=== PATIENT | male | born 1950 | race Caucasian/White ===

== ENCOUNTER → 2018-12-04 | Outpatient (CLI) | payer MEDICARE, SELFPAY ==
--- NOTE | 2018-12-04 09:01 | RAD_ITS ---
STUDY: X-RAY - LEFT KNEE REASON FOR EXAM: Male, 68 years old. Chronic knee pain. TECHNIQUE: 4 view(s) of the knee. COMPARISON: None. FINDINGS: There is generalized osteopenia. Normal visualized distal femur. Normal visualized proximal tibia and fibula. Normal proximal tibiofibular articulation. There is moderate arthrosis of the medial, lateral and patellofemoral compartments. There is a superior patellar spur. RAD/Knee 4 or More Views IMPRESSION: Osteopenia with tricompartmental arthrosis. Electronically Signed: Bennett Mendoza MD at 17:54 EDT , Service support ,
--- NOTE | 2018-12-04 09:01 | RAD_ITS ---
STUDY: X-RAY - RIGHT KNEE REASON FOR EXAM: Chronic pain. TECHNIQUE: 4 view(s) of the knee. COMPARISON: Radiograph report 08/05/2013. FINDINGS: Normal visualized distal femur. Normal visualized proximal tibia and fibula. Normal proximal tibiofibular articulation. There are small marginal osteophytes without joint space narrowing of the medial femorotibial compartment. Normal lateral femorotibial compartment. There are small marginal osteophytes with moderate joint space narrowing of the patellofemoral articulation. There is chondrocalcinosis. RAD/Knee 4 or More Views IMPRESSION: Patellofemoral arthrosis. Chondrocalcinosis. Electronically Signed: Chase Rodriguez MD at 11:47 EDT Tel , Service support ,
== END | disposition home or self-care (01) ==
LOC: HPRAD 09:01
PROVIDERS: Family Provider Family Medicine; PCP Family Medicine; Referring Provider Orthopaedic Surgery; Visit Provider Orthopaedic Surgery
DX: M25.562 Pain in left knee (principal); M25.561 Pain in right knee
CPT/HCPCS: 73564

== ENCOUNTER → 2021-04-04 12:50 | Outpatient (CLI) | payer MEDICARE, SELFPAY ==
--- NOTE | 2021-04-04 12:53 | VDLE_ITS ---
Reason For Study: Swelling RIGHT LEFT CFV is compressible, spontaneous, phasic, CFV is compressible, spontaneous, phasic, competent and demonstrates normal competent, and demonstrates normal augmentation. augmentation. FV is compressible, spontaneous, phasic, FV is compressible, spontaneous, phasic, competent and demonstrates normal competent and demonstrates normal augmentation. augmentation. POP V is compressible, spontaneous, phasic, POP V is compressible, spontaneous, phasic, competent and demonstrates normal competent and demonstrates normal augmentation. augmentation. T/P Trunk is compressible. T/P Trunk is compressible. PTV is compressible. PTV is compressible. RT PerV is compressible. LT PerV is compressible. SFJ is competent and measures 0.95 x 0.94 cm. SFJ is INCOMPETENT and measures 0.83 x 1.00 GSV proximal thigh measures 0.40 x 0.37 cm. cm. GSV above knee is INCOMPETENT for greater GSV proximal thigh measures 0.36 x 0.38 cm. than 0.5 seconds. GSV above knee is INCOMPETENT for greater GSV at knee measures 0.45 x 0.44 cm. than 0.5 seconds. GSV below knee is competent. GSV at knee measures 0.33 x 0.35 cm. SSV at junction is competent and measures GSV below knee previous EVLA. 0.24 x 0.28 cm. SSV previous EVLA. Procedure ASV 2 proximal calf is IMCOPETENT for greater This is a venous duplex using B-mode, color than 0.5 seconds and measures 0.24 x 0.28 cm. flow and spectral Doppler. ASV proximal calf is INCOMPETENT for greater Exam performed in department. than 0.5 seconds and measures 0.32 x 0.36 cm. ASV mid thigh is INCOMPETENT for greater than 0.5 seconds and measures 0.36 x 0.34 cm. VL/Venous Duplex US - Gregory Extrem Interpretation Summary Bilateral no DVT. Right GSV measuring 9.4 and 4 mm with reflux. Left GSV with 8 .3 and 3.8 mm with reflux. Left ASV 3.6 and 3.6 mm with reflux. Previous left leg ablation. Ordering Physician: Mike Correa Referring Physician: Marilyn Nickerson Performed By: Smiley Peguero RVT
== END ==
PROVIDERS: PCP Nurse Practitioner Family; Referring Provider Surgery Vascular Surgery; Visit Provider Surgery Vascular Surgery
DX: I83.893 Varicose veins of bilateral lower extremities with other complications (principal); M79.89 Other specified soft tissue disorders; M79.606 Pain in leg, unspecified; L03.90 Cellulitis, unspecified; K21.9 Gastro-esophageal reflux disease without esophagitis; I51.9 Heart disease, unspecified
CPT/HCPCS: 93970

== ENCOUNTER 2023-05-20 05:17 | Day surgery (SDC) | payer MEDICARE, SELFPAY ==
--- NOTE | 2023-05-20 | IMM_PTH ---
PATIENT: OBED ANDERSON LOC: EN U#:[id number] AGE/SX: 73/M ROOM: RE05/20/[address]: Dr. Junaid Jorge DO : 1950 BED: DIS: 05/20/2023 SPEC #: [id number] RECD: 05/21/23 13:12 STATUS: BILL REQ #: [id number] GINNA: 05/20/23 00:[address]: Junaid Jorge DEPT: IMMUNOHISTOCHEMISTRY RECD BY: Elvie Quigley ENTERED: 05/21/23 13:13 SP TYPE: IMMUNO OTHR DR: Dr. Jabari Adan DO Tissues: B - Esophagus, NOS Procedures: P53 (initial) KI-67 (add) MOC-31 (add) PHYSICIAN & INSTITUTION [place] [id number] SPECIMEN INFORMATION: Tissue Source: B - Distal esophagus Clinical Info: GERD, Albarran's esophagus, fatty liver Specimen Number: [id number] CPT code: 88101, 08735 x2 METHODOLOGY: Deparaffinized sections of prefer/formalin-fixed tissue or PAP/DQ stained slides are incubated with monoclonal/polyclonal antibodies/oligonucleotide probes. Localization is made via biotin free immunoperoxidase method. Appropriate controls are performed and reacted as expected. Results on target cell population are indicated in the following table: RESULTS: ANTIBODY / CLONE RESULT Block B P53 (DO-7) negative, wild type pattern Ki-67 (30-9) positive, low MOC-31 (4561) positive These tests were developed and their performance characteristics determined by [facility]. They may not have been cleared or approved by the U.S. Food and Drug Administration. The FDA has determined that such clearance or approval is not necessary. The above immunohistochemical/dualISH markers are ordered and reviewed by the Pathologist. INTERPRETATION: B. Distal esophagus, biopsy: No evidence of dysplasia. AM:monster 05/22/2023
--- NOTE | 2023-05-20 | COLBX_PTH ---
PATIENT: OBED ANDERSON LOC: EN U#:[id number] AGE/SX: 73/M ROOM: RE05/20/[address]: Dr. Junaid Jorge DO : 1950 BED: DIS: 05/20/2023 SPEC #: [id number] RECD: 05/20/23 10:39 STATUS: BILL LORNE #: [id number] GINNA: 05/20/23 00:[address]: Junaid Jorge DEPT: SURGICAL PATHOLOGY RECD BY: Donaldo Bennett ENTERED: 05/20/23 10:40 SP TYPE: COLON BX OTHR DR: Dr. Jabari Adan DO Tissues: A - Duodenum, NOS B - Esophageal mucous membrane C - Ileum, NOS Procedures: Special Stain Group II Surgery Specimen Level IV Alcian Blue/PAS (control) HEADER OPERATION: Colonoscopy, EGD (MAC), biopsy PRE-OP DIAGNOSIS: GERD, Albarran's esophagus, fatty liver TISSUE SUBMITTED: A - Duodenal stricture biopsy, B - Distal esophagus biopsy, C - Ileocecal valve polyp MICROSCOPIC DIAGNOSIS A. Duodenal stricture, biopsy: No pathologic change. B. Distal esophagus, biopsy: Gastroesophageal junctional mucosa with mild chronic inflammation. Goblet cell metaplasia consistent with Albarran's esophagus. No evidence of dysplasia. See comment. C. Ileocecal valve, biopsy: No pathologic change. AM:monster 05/21/2023 COMMENT B. Alcian blue/PAS stain with matched control supports the above diagnosis. Immunohistochemistry ([id number]) for P53 and Ki-67 will be performed and results will be reported separately. MICROSCOPIC DESCRIPTION Slides are reviewed. GROSS DESCRIPTION A - Received in fixative is one container labeled with the patient's name and designated duodenal stricture biopsy. The specimen consists of two irregular fragments of light smith soft tissue that in aggregate measure 0.8 x 0.4 x 0.1 cm. The specimen is totally submitted in one cassette. B - Received in fixative is one container labeled with the patient's name and designated distal esophagus biopsy. The specimen consists of two irregular fragments of light smith soft tissue that in aggregate measure 0.6 x 0.3 x 0.1 cm. The specimen is totally submitted in one cassette. C - Received in fixative is one container labeled with the patient's name and designated ileocecal valve polyp. The specimen consists of multiple fragments of smith-pink polyp measuring in aggregate 0.5 x 0.3 x 0.1 cm. The specimen is totally submitted in one cassette. / SJ:rg 05/20/2023 TC:3 CPT: 82107 x3, 77468
[2023-05-20 05:57] VITALS: BP 162/74; PULSE 62; RESP 18; TEMP 36.6; O2SAT 97; BMI 25.6
--- NOTE | 2023-05-20 06:26 | PCM.HP.BLA ---
History and Physical Date of Admission: 05/20/23 72 M who presents to the office today to establish with Gastroenterology for heartburn, hx Albarran's, fatty liver. Diagnosed with Albarran's esophagus years ago. Takes omeprazole 40 mg BID. Famotidine 20 mg added in 10/2022 per primary care progress note but patient not aware of that. Always has a bad taste in mouth. Burning pain in mouth. Hx fundoplication [address] reported small hiatal hernia and possibly 2 small diverticula at distal esophagus. No nausea, vomiting, dysphagia, early satiety. No abd pain. Diarrhea typically at restaurants or at someone else's house. Otherwise normal bowels. No melena or hematochezia. Says overdue for screening colonoscopy. No hx polyps. 2021 Renal US reported fatty liver ROS Const Constitutional: No fatigue ENT ENT: No difficulty swallowing Gastro GI: Positive for abdominal pain, bloating, diarrhea and heartburn; No belching, change in bowel habits, change in stool character, coffee ground emesis, constipation, cramping, difficulty swallowing, feeling full early, excessive flatus, incontinent of stools, Vomiting blood/hematemesis, Blood in stool, loose stools, Black,tarry stools, nausea/dyspepsia, pain with swallowing, vomiting or other Musc Musculoskeletal: No joint pain Skin Skin: No yellowing of the eye or itchy eyes Psych Psychiatric: No anxiety and No depression Endo Endocrine: No fatigue Aller/Imm Allergy/Immunologic: No itchy eyes David/Lymp Hematologic/Lymphatic: No easy bleeding or easy bruising Exam Const General: cooperative, healthy appearing and comfortable Orientation: alert, awake and oriented x3 HENMT Head: normal to inspection Eyes Sclera: sclerae normal Resp Effort & Inspection: normal respiratory effort GI Inspection: normal to inspection Skin General: no jaundice Quality Reporting Tobacco Screening ([facility] 138) Smoking Status: Never smoker Assessment and Plan Assessment and Plan (1) Bad taste in mouth: Status: Chronic Plan: 72 yr old male with chronic bad taste in mouth, hiatal hernia, possible distal esophageal diverticula which may be trapping food, remote hx ?fundoplication. Will schedule him for EGD and screening colonoscopy. F/u in office 2 wks later. (2) GERD (gastroesophageal reflux disease): Status: Chronic Plan: see above (3) Albarran esophagus: Status: Chronic Plan: see above (4) Fatty liver: Status: Chronic Plan: Will get liver elastography, then decide re any necessary lab w/u Orders: Orders Abdomen Limited Today K76.0 - Fatty (change of) liver, not elsewhere classified Elastography Parenchyma/Organ Today K76.0 - Fatty (change of) liver, not elsewhere classified Medications: Discontinued famotidine Discontinued Reason: Pt no longer taking 20 mg PO DAILY I have examined the patient and the H&P has been reviewed. There are no clinical changes since date of exam.
[2023-05-20 07:20] VITALS: BP 126/66; BP 162/74; PULSE 65; RESP 16; TEMP 36.2; O2SAT 100
--- NOTE | 2023-05-20 07:25 | OP.EGD_ITS ---
Patient Name: David Jacobson Procedure Date: 05/20/2023 6:49 AM Date of : 1950 Age: 73 Procedure: Upper GI endoscopy Indications: Epigastric abdominal pain, Esophageal reflux, Follow-up of Albarran's esophagus Providers: Junaid Jorge DO Referring MD: Junaid Jorge DO Medicines: Monitored Anesthesia Care Patient Profile: This is a 73 year old male. Refer to note in patient chart for documentation of history and physical. Patient has symptoms of chronic nausea. Complications: No immediate complications. Procedure: Pre-Anesthesia Assessment: - Prior to the procedure, a History and Physical was performed, and patient medications and allergies were reviewed. The risks and benefits of the procedure and the sedation options and risks were discussed with the patient. All questions were answered and informed consent was obtained. Patient identification and proposed procedure were verified by the physician. Mental Status Examination: normal. Prophylactic Antibiotics: The patient does not require prophylactic antibiotics. Prior Anticoagulants: The patient has taken no anticoagulant or antiplatelet agents. ASA Grade Assessment: II - A patient with mild systemic disease. After reviewing the risks and benefits, the patient was deemed in satisfactory condition to undergo the procedure. The anesthesia plan was to use monitored anesthesia care (MAC). Immediately prior to administration of medications, the patient was re-assessed for adequacy to receive sedatives. The heart rate, respiratory rate, oxygen saturations, blood pressure, adequacy of pulmonary ventilation, and response to care were monitored throughout the procedure. The physical status of the patient was re-assessed after the procedure. After obtaining informed consent, the endoscope was passed under direct vision. Throughout the procedure, the patient's blood pressure, pulse, and oxygen saturations were monitored continuously. The colonoscope was introduced through the mouth, and advanced to the second part of duodenum. The upper GI endoscopy was accomplished without difficulty. The patient tolerated the procedure well. Scope In: 6:59:03 AM Scope Out: 7:04:14 AM Total Procedure Duration Time 0 hours 5 minutes 11 seconds Findings: There were esophageal mucosal changes secondary to established short-segment Albarran's disease present in the lower third of the esophagus. The maximum longitudinal extent of these mucosal changes was 1 cm in length. Mucosa was biopsied with a cold forceps for histology in a targeted manner at intervals of 1 cm in the lower third of the esophagus. One specimen bottle was sent to pathology. Verification of patient identification for the specimen was done. Estimated blood loss was minimal. Evidence of a partial fundoplication was found in the gastric fundus. The wrap appeared loose. This was traversed. The entire examined stomach was normal. An acquired benign-appearing, intrinsic moderate stenosis was found in the duodenal bulb and was traversed. Biopsies were taken with a cold forceps for histology. Verification of patient identification for the specimen was done. Estimated blood loss was minimal. Impression: - Esophageal mucosal changes secondary to established short-segment Albarran's disease. Biopsied. - A partial fundoplication was found. The wrap appears loose. - Normal stomach. - Acquired duodenal stenosis. Biopsied. Recommendation: - Discharge patient to home. - Resume previous diet. - Continue present medications. - Await pathology results. Procedure Code(s): --- Professional --- 77155, Esophagogastroduodenoscopy, flexible, transoral; with biopsy, single or multiple CPT copyright 2021 [employer]. All rights reserved. The codes documented in this report are preliminary and upon weight yardage checker review may be revised to meet current compliance requirements. Junaid Jorge DO 05/20/2023 7:24:13 AM This report has been signed electronically. Number of Addenda: 0 Note Initiated On: 05/20/2023 6:49 AM
--- NOTE | 2023-05-20 07:25 | OP.CCLET_ITS ---
05/20/2023 Jabari Adan Do Re : Upper GI endoscopy procedure for [facility] Antionette This procedure was performed on Saturday, May 20, 2023. My impressions and recommendations are as follows: Impressions : - Esophageal mucosal changes secondary to established short-segment Albarran's disease. Biopsied. - A partial fundoplication was found. The wrap appears loose. - Normal stomach. - Acquired duodenal stenosis. Biopsied. Recommendations : - Discharge patient to home. - Resume previous diet. - Continue present medications. - Await pathology results. My findings are described in the full procedure note, which is enclosed. If I can be of further assistance, please feel free to contact me at . Sincerely, Junaid Jorge, 05/20/2023 7:24:13 AM This report has been signed electronically.
[2023-05-20 07:26] VITALS: BP 123/73; BP 162/74; PULSE 67; RESP 16; O2SAT 99
--- NOTE | 2023-05-20 07:26 | OP.COLON_ITS ---
Patient Name: David Jacobson Procedure Date: 05/20/2023 7:05 AM Date of : 1950 Age: 73 Procedure: Colonoscopy Indications: Screening for colorectal malignant neoplasm Providers: Junaid Jorge DO Referring MD: Junaid Jorge DO Medicines: Monitored Anesthesia Care Patient Profile: This is a 73 year old male. Refer to note in patient chart for documentation of history and physical. Patient has symptoms of chronic nausea. Last Colonoscopy: 10 years ago. Complications: No immediate complications. Procedure: Pre-Anesthesia Assessment: - Prior to the procedure, a History and Physical was performed, and patient medications and allergies were reviewed. The risks and benefits of the procedure and the sedation options and risks were discussed with the patient. All questions were answered and informed consent was obtained. Patient identification and proposed procedure were verified by the physician. Mental Status Examination: normal. Prophylactic Antibiotics: The patient does not require prophylactic antibiotics. Prior Anticoagulants: The patient has taken no anticoagulant or antiplatelet agents. ASA Grade Assessment: II - A patient with mild systemic disease. After reviewing the risks and benefits, the patient was deemed in satisfactory condition to undergo the procedure. The anesthesia plan was to use monitored anesthesia care (MAC). Immediately prior to administration of medications, the patient was re-assessed for adequacy to receive sedatives. The heart rate, respiratory rate, oxygen saturations, blood pressure, adequacy of pulmonary ventilation, and response to care were monitored throughout the procedure. The physical status of the patient was re-assessed after the procedure. After I obtained informed consent, the scope was passed under direct vision. Throughout the procedure, the patient's blood pressure, pulse, and oxygen saturations were monitored continuously. The colonoscope was introduced through the anus and advanced to the cecum, identified by the appendiceal orifice, ileocecal valve and palpation. The colonoscopy was performed without difficulty. The patient tolerated the procedure well. The quality of the bowel preparation was good. The ileocecal valve, appendiceal orifice, and rectum were photographed. Scope In: 7:06:22 AM Scope Withdrawal Time 0 hours 7 minutes 5 seconds Scope Out: 7:15:11 AM Total Procedure Duration Time 0 hours 8 minutes 49 seconds Findings: The perianal and digital rectal examinations were normal. Scattered small-mouthed diverticula were found in the recto-sigmoid colon and sigmoid colon. A 5 mm polyp was found in the ileocecal valve. The polyp was sessile. The polyp was removed with a hot snare. Resection and retrieval were complete. Verification of patient identification for the specimen was done. Estimated blood loss was minimal. Impression: - Diverticulosis in the recto-sigmoid colon and in the sigmoid colon. - One 5 mm polyp at the ileocecal valve, removed with a hot snare. Resected and retrieved. Recommendation: - Repeat colonoscopy in 5 years for surveillance. - Continue present medications. Procedure Code(s): --- Professional --- 04553, Colonoscopy, flexible; with removal of tumor(s), polyp(s), or other lesion(s) by snare technique CPT copyright 2021 [employer]. All rights reserved. The codes documented in this report are preliminary and upon oil gas and pipe tester review may be revised to meet current compliance requirements. Junaid Jorge DO 05/20/2023 7:26:16 AM This report has been signed electronically. Number of Addenda: 0 Note Initiated On: 05/20/2023 7:05 AM
--- NOTE | 2023-05-20 07:26 | OP.CCLET_ITS ---
05/20/2023 Jabari Adan Do Re : Colonoscopy procedure for [facility] [place] This procedure was performed on Saturday, May 20, 2023. My impressions and recommendations are as follows: Impressions : - Diverticulosis in the recto-sigmoid colon and in the sigmoid colon. - One 5 mm polyp at the ileocecal valve, removed with a hot snare. Resected and retrieved. Recommendations : - Repeat colonoscopy in 5 years for surveillance. - Continue present medications. My findings are described in the full procedure note, which is enclosed. If I can be of further assistance, please feel free to contact me at . Sincerely, Junaid Jorge, 05/20/2023 7:26:16 AM This report has been signed electronically.
[2023-05-20 07:30] VITALS: BP 132/75; BP 162/74; PULSE 64; RESP 16; O2SAT 99
[2023-05-20 07:35] VITALS: BP 148/79; BP 162/74; RESP 16; TEMP 36.7; O2SAT 99
[2023-05-20 07:50] VITALS: BP 162/74
== END 2023-05-20 08:01 | disposition home or self-care (01) ==
LOC: EN 05:18 → AC 05:20
PROVIDERS: PCP Student in an Organized Health Care Education/Training Program; Referring Provider Student in an Organized Health Care Education/Training Program; Visit Provider Internal Medicine Gastroenterology
PROC: 0DJD8ZZ Inspection of Lower Intestinal Tract, Via Natural or Artificial Opening Endoscopic (ICD-10-PCS; CPT 45378; principal; 2023-05-20 06:25)
DX: Z12.11 Encounter for screening for malignant neoplasm of colon (principal); I48.91 Unspecified atrial fibrillation; K63.5 Polyp of colon; K57.30 Diverticulosis of large intestine without perforation or abscess without bleeding; K31.5 Obstruction of duodenum; K22.70 Barrett's esophagus without dysplasia; K76.0 Fatty (change of) liver, not elsewhere classified; K21.9 Gastro-esophageal reflux disease without esophagitis; I10 Essential (primary) hypertension; Z79.01 Long term (current) use of anticoagulants; Z79.899 Other long term (current) drug therapy; Z95.1 Presence of aortocoronary bypass graft
CPT/HCPCS: 43239; 45385; 81002; 88305; 88313; 88341; 88342; 93005; J7120

== ENCOUNTER → 2023-06-14 | Outpatient (CLI) | payer MEDICARE, SELFPAY ==
[2023-06-14 08:59] LABS: Erythrocyte Sedimentation Rate 14 mm/hr (0-20)
[2023-06-14 09:13] LABS: Amylase 56 U/L (25-115); CRP < 2.90 mg/L (0.0-3.0); LDH 140 U/L (87-241); Lipase 40 U/L (13-75)
[2023-06-17 13:07] LABS: Anti-Centromere B Ab <0.2 AI (0.0-0.9); Anti-Chromatin <0.2 AI (0.0-0.9); Anti-Jo <0.2 AI (0.0-0.9); Anti-Scleroderma-70 AB <0.2 AI (0.0-0.9); Anti-dsDNA Ab <1 IU/mL (0-9); RNP Ab <0.2 AI (0.0-0.9); SJOGREN'S Anti-SS-A test < 0.2 AI (0.0-0.9); SJOGREN'S Anti-SS-B test < 0.2 AI (0.0-0.9); Smith Ab <0.2 AI (0.0-0.9)
[2023-06-17 16:08] LABS: Albumin 4.2 g/dL (2.9-4.4); Alpha-1-Globulins 0.1 g/dL (0.0-0.4); Alpha-2-Globulins 0.9 g/dL (0.4-1.0); Cytoplasmic Ab (C-ANCA) <1:20 titer (Neg:<1:20); Endomysial Antibody IgA Negative (Negative); Gamma Globulin 0.6 g/dL (0.4-1.8); Gastrin, Serum 214 pg/mL (0-115); Immunoglobulin A 189 mg/dL (61-437); Immunoglobulin G 796 mg/dL (603-1613); Immunoglobulin M 60 mg/dL (15-143); Perinuclear Ab (P-ANCA) <1:20 titer (Neg:<1:20); t-Transglutaminase IgA <2 U/mL (0-3)
[2023-06-19 00:06] LABS: Pancreatic Elastase, Fecal 397 (>200)
[2023-06-21 15:07] LABS: Calprotectin, Stool 104 ug/g (0-120); Fats, Neutral Normal (.); Fats, Total Normal (.)
== END | disposition home or self-care (01) ==
PROVIDERS: PCP Student in an Organized Health Care Education/Training Program; Referring Provider Internal Medicine Gastroenterology; Visit Provider Internal Medicine Gastroenterology
DX: R43.8 Other disturbances of smell and taste (principal); Z12.11 Encounter for screening for malignant neoplasm of colon; R19.7 Diarrhea, unspecified; K58.9 Irritable bowel syndrome, unspecified
CPT/HCPCS: 36415; 82150; 82653; 82705; 82784; 82941; 83516; 83615; 83630; 83690; 83993; 84165; 85652; 86140; 86225; 86235; 86255; 86256; 86334; 87177; 87209; 87329; 87506

== ENCOUNTER → 2023-07-16 | Outpatient (CLI) | payer MEDICARE, SELFPAY ==
--- NOTE | 2023-07-16 10:15 | NM_ITS ---
CLINICAL: 73-year-old male with history of clinical gastroparesis. SEMI-SOLID PHASE 99m Tc SULFUR COLLOID GASTRIC EMPTYING STUD COMPARISON: None available FINDINGS: The patient was administered 1.1 mCi of 99m Tc sulfur colloid mixed with oatmeal and consumed per os. Image acquisitions in the anterior projection were obtained for 60 minutes. There is prompt visualization of the stomach. There is no gastroesophageal reflux identified. The T ? linear fit was calculated to be 34.34 minutes, (Normal: 12-56 minutes). NM/Gastric Emptying Study IMPRESSION: 1. NORMAL 99m Tc sulfur colloid semi-solid phase (oatmeal) gastric emptying imaging examination. A. There is normal and preserved semi-solid phase gastric emptying compared to normal controls. (Deondre et al, J Nucl Med Tech 38: 186, 2010). Electronically Signed: Joss Nichols DO at 23:38 EST ,
== END | disposition home or self-care (01) ==
LOC: NM 10:14
PROVIDERS: PCP Student in an Organized Health Care Education/Training Program; Referring Provider Internal Medicine Gastroenterology; Visit Provider Internal Medicine Gastroenterology
DX: K31.84 Gastroparesis (principal)
CPT/HCPCS: 78264; A9541

== ENCOUNTER → 2023-10-01 | Outpatient (CLI) | payer MEDICARE, SELFPAY ==
--- OUTSIDE RECORDS SUMMARY | 2023-09-09 12:30 | XMS RPT_ITS | CCD ---
Author Name Unknown Address [address] [facility] [address] [place] [address] Organization [facility] Care Team Providers Care Casting Operator Name Role Phone FELTON LEAD INJECTION MOLD TECHNICIAN-WINDOW DECORATOR, MARILYN Primary Care Physician ( [phone] Deepa NAZARIO, Lesli Unavailable Unavailable Felton LEAD INJECTION MOLD TECHNICIAN.WINDOW DECORATOR, Marilyn Primary Care Provider Felton LEAD INJECTION MOLD TECHNICIAN.WINDOW DECORATOR, Marilyn Primary Care Provider FELTON LEAD INJECTION MOLD TECHNICIAN-WINDOW DECORATOR, MARILYN Primary Care Unavaila WILFRIDO Cornell MD Attending Unavailable FELTON LEAD INJECTION MOLD TECHNICIAN-WINDOW DECORATOR, MARILYN Attending Unavaila ble FELTON LEAD INJECTION MOLD TECHNICIAN-WINDOW DECORATOR, MARILYN Primary Care Unavaila ble FELTON LEAD INJECTION MOLD TECHNICIAN-WINDOW DECORATOR, MARILYN Primary Care Unavaila ble FELTON LEAD INJECTION MOLD TECHNICIAN-WINDOW DECORATOR, MARILYN Attending Unavaila ble FELTON LEAD INJECTION MOLD TECHNICIAN-WINDOW DECORATOR, MARILYN Attending Unavaila ble FELTON LEAD INJECTION MOLD TECHNICIAN-WINDOW DECORATOR, MARILYN Primary Care Unavaila ble FELTON LEAD INJECTION MOLD TECHNICIAN-WINDOW DECORATOR, MARILYN Attending Unavaila ble FELTON LEAD INJECTION MOLD TECHNICIAN-WINDOW DECORATOR, MARILYN Primary Care Unavaila igne LEAHY MD, KARAN Le Attending Unavailable LAYO LYNN, KARAN Le Consulting Unavailable LAYO LYNN, KARAN Le Admitting Unavailable FELTON LEAD INJECTION MOLD TECHNICIAN-WINDOW DECORATOR, MARILYN Primary Care Unavaila inge RAMIREZ MD., DR. BELLAMY Consulting UnavailCINDY Zavala MD Consulting Unavailable FELTON LEAD INJECTION MOLD TECHNICIAN-WINDOW DECORATOR, MARILYN Primary Care Unavaila ANDRESSA Flores Attending Unavailable FELTON LEAD INJECTION MOLD TECHNICIAN-WINDOW DECORATOR, MARILYN Primary Care Unavaila ble ANDRESSA LOUIS Attending Unavailable FELTON LEAD INJECTION MOLD TECHNICIAN-WINDOW DECORATOR, MARILYN Attending Unavaila ble FELTON LEAD INJECTION MOLD TECHNICIAN-WINDOW DECORATOR, MARILYN Primary Care Unavaila ble FELTON LEAD INJECTION MOLD TECHNICIAN-WINDOW DECORATOR, MARILYN Primary Care Unavaila ble GROSS DO, DIMITRI D Attending Unavailable FELTON LEAD INJECTION MOLD TECHNICIAN-WINDOW DECORATOR, MARILYN Primary Care Unavaila DIMITRI Tran DO Attending Unavailable Krishan LEAD INJECTION MOLD TECHNICIAN.WINDOW DECORATOR, Marilyn Primary Care Provider 1( [phone] Federico Barboza MD Unavailable Darion Bennett MD Primary Care Provider FELTON, MARILYN Primary Care Unavailable FELTON, MARILYN Primary Care Unavailable DIMITRI GEORGE Referring Unavailable FELTON, MARILYN Primary Care Unavailable DIMITRI GEORGE Attending Unavailable FELTON, MARILYN Primary Care Unavailable DIMITRI GEORGE Referring Unavailable DIMITRI GEORGE Attending Unavailable FELTON, MARILYN Primary Care Unavailable DIMITRI GEORGE Referring Unavailable FELTON, MARILYN Primary Care Unavailable DIMITRI GEORGE Referring Unavailable KIRT PLATA Attending Unavailable LEONARDO NETTLES Attending Unavailable FELTON, MARILYN Primary Care Unavailable Allergies Allergy Classification Reported Allergen(s) Allergy Type Date of Onset Reaction(s) Facility (9 sources) fentaNYL; Translations: [fentanyl] Drug Allergy irregular heart rate [facility] Work Phone: (7 sources) HMG-CoA reductase inhibitor; Translations: [statins] Drug allergy [facility] Medications Current Medications Medication Drug Class(es) Dates Sig (Normalized) Sig (Original) Tylenol (6 sources) Start: 06-02-2022 take 1 dose by mouth twice daily Tylenol Dose : 600 mg =, Oral, BID, 0 Refill(s) Start Date: 06/02/22 Status: Ordered Completed/Discontinued Medications Medication Drug Class(es) Dates Sig (Normalized) Sig (Original) apixaban 5 mg oral tablet (13 sources) Factor Xa Inhibitor Start: 06-04-2022 End: 07-03-2023 take 1 tablet by mouth twice daily ELIQUIS 5 mg tab(s) Indications: Mitral valve prolapse , CAD in [place] artery , Bilateral carotid artery stenosis Take 1 tablet by mouth two times a day. 60 tablet 0 06/21/2023 07/03/2023 Discontinued Problems Active Problems Problem Classification Problem Date Documented Date Episodic/Chronic Acute myocardial infarction (9 sources) Left coronary artery occlusion 09-25-2019 Chronic Cardiac dysrhythmias (8 sources) Atrial flutter; Translations: [Paroxysmal atrial fibrillation] Onset: 2 06-18-2022 Chronic Chronic kidney disease (5 sources) Chronic kidney disease stage 3A 06-14-2022 Chronic Coronary atherosclerosis and other heart disease (18 sources) Coronary atherosclerosis; Translations: [Atherosclerotic heart disease of [place] coronary artery without angina pectoris] Onset: 6 Chronic Disorders of lipid metabolism (9 sources) Hypercholesterolemia 09-25-2019 Chronic Esophageal disorders (13 sources) Albarran's esophagus; Translations: [Gastroesophageal reflux disease] Onset: 3 02-22-2021 Chronic Essential hypertension (20 sources) Benign essential hypertension; Translations: [Essential (primary) hypertension] Onset: 6 Chronic Gastritis and duodenitis (9 sources) Chronic gastritis 09-25-2019 Chronic Heart valve disorders (20 sources) Mitral valve prolapse; Translations: [Nonrheumatic mitral (valve) prolapse] Onset: 1 02-02-2017 Chronic Hyperplasia of prostate (9 sources) Benign prostatic hyperplasia 09-25-2019 Chronic Nonspecific chest pain (17 sources) Tight chest; Translations: [Other chest pain] Onset: 2 Episodic Occlusion or stenosis of precerebral arteries (16 sources) Bilateral stenosis of carotid arteries; Translations: [Occlusion and stenosis of bilateral carotid arteries] Onset: 1 Chronic Other aftercare (4 sources) Long-term current use of anticoagulant; Translations: [FCI (current) use of anticoagulants] Onset: 3 07-03-2023 Episodic Other aftercare (1 source) FCI (current) use of anticoagulants; Translations: [emt intermediate current use of anticoagulant] Onset: 3 Episodic Other and unspecified benign neoplasm (9 sources) Benign neoplasm of skin 09-25-2019 Episodic Other bone disease and musculoskeletal deformities (5 sources) Cervical somatic dysfunction 09-25-2019 Episodic Other bone disease and musculoskeletal deformities (5 sources) Somatic dysfunction of lumbar region 09-25-2019 Episodic Other bone disease and musculoskeletal deformities (5 sources) Somatic dysfunction of thoracic region 09-25-2019 Episodic Other connective tissue disease (9 sources) Muscle pain 02-22-2021 Episodic Other hereditary and degenerative nervous system conditions (4 sources) Restless legs; Translations: [Restless legs syndrome] Onset: 3 02-05-2023 Chronic Other nervous system disorders (9 sources) Carpal tunnel syndrome 09-25-2019 Chronic Other nervous system disorders (9 sources) Ischemic peripheral neuropathy 05-25-2021 Chronic Other nutritional; endocrine; and metabolic disorders (9 sources) Unintentional weight loss 02-22-2021 Episod ic Other upper respiratory disease (1 source) Nasal congestion; Translations: [Nasal congestion] Episodic Residual codes; unclassified (13 sources) Obstructive sleep apnea syndrome; Translations: [Obstructive sleep apnea (adult) (pediatric)] Onset: 6 08-29-2015 Chronic Residual codes; unclassified (1 source) Obstructive sleep apnea (adult) (pediatric); Translations: [CAMILO (obstructive sleep apnea)] Onset: 6 Chronic Residual codes; unclassified (9 sources) Transient memory loss 09-25-2019 Episodic Residual codes; unclassified (13 sources) Edema of extremity; Translations: [Localized edema] Episodic Screening and history of mental health and substance abuse codes (9 sources) Tobacco use and exposure - finding 02-22-2021 Chronic Viral infection (9 sources) Herpes zoster 09-25-2019 Episodic Past or Other Problems Problem Classification Problem Date Documented Da te Episodic/Chronic Abdominal hernia (4 sources) Hiatal hernia; Translations: [Diaphragmatic hernia without obstruction or gangrene] Onset: 02-05-2023 02-05-2023 Episodic Abdominal pain (10 sources) Flank pain; Translations: [Unspecified abdominal pain] Onset: 05-17-2022 05-16-2022 Episodic Blindness and vision defects (13 sources) Diplopia; Translations: [Diplopia] Onset: 05-09-2022 Episodic Conditions associated with dizziness or vertigo (11 sources) Dizziness; Translations: [Dizziness and giddiness] Onset: 06-16-2021 Episodic Other bone disease and musculoskeletal deformities (4 sources) Costal chondritis; Translations: [Chondrocostal junction syndrome [Tietze]] Onset: 02-05-2023 02-05-2023 Episodic Other connective tissue disease (12 sources) Fibromyalgia; Translations: [Fibromyalgia] Onset: 08-29-2015 08-29-2015 Episodic Residual codes; unclassified (20 sources) Past history of procedure; Translations: [Personal history of other medical treatment] Onset: 06-10-2014 Episodic Residual codes; unclassified (1 source) Localized edema; Translations: [Edema of extremities] Onset: 06-16-2021 Episodic Residual codes; unclassified (1 source) Personal history of other medical treatment; Translations: [History of stress test] Onset: 06-16-2021 Episodic Residual codes; unclassified (2 sources) History of cardiac catheterization; Translations: [Other specified postprocedural states] Onset: 06-02-2022 07-04-2023 Episodic Screening and history of mental health and substance abuse codes (15 sources) Ex-smoker; Translations: [Personal history of nicotine dependence] Onset: 05-08-2022 Episodic Spondylosis; intervertebral disc disorders; other back problems (10 sources) Backache; Translations: [Dorsalgia, unspecified] Onset: 05-17-2022 05-16-2022 Episodic Results Test Name Value Interpretation Reference Range Facil it Vital Signs Date Time Vital Sign Value Performing Clinician Facility 07-03-2023 11:15-0500 Body height 175.3 cm Leonardo Nettles LEAD INJECTION MOLD TECHNICIAN.WINDOW DECORATOR Work Phone: [facility] 07-03-2023 11:15-0500 Body weight 84.82 kg Leonardo Nettles LEAD INJECTION MOLD TECHNICIAN.WINDOW DECORATOR Work Phone: [facility] 07-03-2023 11:15-0500 Diastolic blood pressure 102 mm[Hg] Leonardo Nettles LEAD INJECTION MOLD TECHNICIAN.WINDOW DECORATOR Work Phone: [facility] 07-03-2023 11:15-0500 Heart rate 61 /min Leonardo Nettles LEAD INJECTION MOLD TECHNICIAN.WINDOW DECORATOR Work Phone: [facility] 07-03-2023 11:15-0500 Systolic blood pressure 180 mm[Hg] Leonardo Nettles LEAD INJECTION MOLD TECHNICIAN.WINDOW DECORATOR Work Phone: [facility] 06-22-2022 10:25-0400 Body height 175.3 cm [employer] Work Phone: [facility] 06-22-2022 10:25-0400 Body weight 85.73 kg Dimitri Biopharmacopae DO Work Phone: [facility] 06-22-2022 10:25-0400 Diastolic blood pressure 92 mm[Hg] Dimitri [employer] Work Phone: [facility] 06-22-2022 10:25-0400 Heart rate 56 /min Dimitri Gross DO Work Phone: [facility] 06-22-2022 10:25-0400 Systolic blood pressure 172 mm[Hg] Dimitri Gross DO Work Phone: [facility] 06-04-2022 16:15-0400 Body temperature 98.24 [degF] KARAN LEAHY MD [address] [place] [address] 06-04-2022 16:15-0400 Diastolic blood pressure 66 mm[Hg] KARAN LEAHY MD [address] [place] [address] 06-04-2022 16:15-0400 Heart rate 71 /min KARAN LEAHY MD [address] [place] [address] 06-04-2022 16:15-0400 Mean blood pressure 85 mm[Hg] KARAN LEAHY MD [address] [place] [address] 06-04-2022 16:15-0400 Respiratory rate 20 /min KARAN LEAHY MD [address] [place] [address] 06-04-2022 16:15-0400 Systolic blood pressure 124 mm[Hg] KARAN LEAHY MD [address] [place] [address] 06-04-2022 11:57-0400 Heart rate 74 /min KARAN LEAHY MD [address] [place] [address] 06-04-2022 10:05-0400 Body temperature 97.52 [degF] KARAN LEAHY MD [address] [place] [address] 06-04-2022 10:05-0400 Diastolic blood pressure 74 mm[Hg] KARAN LEAHY MD [address] [place] [address] 06-04-2022 10:05-0400 Mean blood pressure 89 mm[Hg] KARAN LEAHY MD [address] [place] [address] 06-04-2022 10:05-0400 Respiratory rate 16 /min KARAN LEAHY MD [address] [place] [address] 06-04-2022 10:05-0400 Systolic blood pressure 120 mm[Hg] KARAN LEAHY MD [address] [place] [address] 06-04-2022 08:55-0400 Heart rate 77 /min KARAN LEAHY MD [address] [place] [address] 06-04-2022 08:21-0400 Reason For Taking VItal Signs KARAN LEAHY MD [address] [place] [address] 06-04-2022 08:15-0400 Body temperature 97.88 [degF] KARAN LEAHY MD [address] [place] [address] 06-04-2022 08:15-0400 Diastolic blood pressure 72 mm[Hg] KARAN LEAHY MD [address] [place] [address] 06-04-2022 08:15-0400 Heart rate 70 /min KARAN LEAHY MD [address] [place] [address] 06-04-2022 08:15-0400 Mean blood pressure 95 mm[Hg] KARAN LEAHY MD [address] [place] [address] 06-04-2022 08:15-0400 Respiratory rate 16 /min KARAN LEAHY MD [address] [place] [address] 06-04-2022 08:15-0400 Systolic blood pressure 140 mm[Hg] KARAN LEAHY MD [address] [place] [address] 06-04-2022 07:30-0400 Heart rate 80 /min KARAN LEAHY MD [address] [place] [address] 06-04-2022 04:03-0400 Reason For Taking VItal Signs KARAN LEAHY MD [address] [place] [address] 06-04-2022 03:41-0400 Reason For Taking VItal Signs KARAN LEAHY MD [address] [place] [address] 06-02-2022 23:43-0400 Diastolic Blood Pressure NBP 66 1 KARAN LEAHY MD [address] [place] [address] 06-02-2022 23:43-0400 Mean blood pressure 79 mm[Hg] KARAN LEAHY MD [address] [place] [address] 06-02-2022 23:43-0400 Systolic Blood Pressure NBP 111 1 KARAN LEAHY MD [address] [place] [address] 06-02-2022 21:30-0400 Diastolic Blood Pressure NBP 64 1 KARAN LEAHY MD [address] [place] [address] 06-02-2022 21:30-0400 Mean blood pressure 78 mm[Hg] KARAN LEAHY MD [address] [place] [address] 06-02-2022 21:30-0400 Systolic Blood Pressure NBP 108 1 KARAN LEAHY MD [address] [place] [address] 06-02-2022 21:00-0400 Diastolic Blood Pressure NBP 80 1 KARAN LEAHY MD [address] [place] [address] 06-02-2022 21:00-0400 Mean blood pressure 83 mm[Hg] KARAN LEAHY MD [address] [place] [address] 06-02-2022 21:00-0400 Systolic Blood Pressure NBP 102 1 KARAN LEAHY MD [address] [place] [address] 06-02-2022 18:30-0400 Body height 175.3 cm KARAN LEAHY MD [address] [place] [address] 06-02-2022 18:30-0400 Body weight 87.1 kg KARAN LEAHY MD [address] [place] [address] 06-02-2022 18:30-0400 Body weight 28.34 kg/m2 KARAN LEAHY MD [address] [place] [address] 06-02-2022 16:47-0400 Body temperature 98.42 [degF] WILFRIDO CRUZ MD [facility] 06-02-2022 16:47-0400 Body weight 86.4 kg WILFRIDO CRUZ MD [facility] 06-02-2022 16:47-0400 Diastolic blood pressure 89 mm[Hg] WILFRIDO CRUZ MD [facility] 06-02-2022 16:47-0400 Heart rate 141 /min WILFRIDO CRUZ MD [facility] 06-02-2022 16:47-0400 Respiratory rate 18 /min WILFRIDO CRUZ MD [facility] 06-02-2022 16:47-0400 Systolic blood pressure 136 mm[Hg] WILFRIDO CRUZ MD [facility] 05-09-2022 15:04-0400 Body height 175.3 cm Dimitri Biopharmacopae DO Work Phone: [facility] 05-09-2022 15:04-0400 Body weight 86.64 kg Dimitri Gross DO Work Phone: [facility] 05-09-2022 15:04-0400 Diastolic blood pressure 78 mm[Hg] Dimitri Gross DO Work Phone: [facility] 05-09-2022 15:04-0400 Heart rate 56 /min Dimitri Gross DO Work Phone: [facility] 05-09-2022 15:04-0400 Systolic blood pressure 150 mm[Hg] Dimitri Gross DO Work Phone: [facility] Encounters Encounter Date Encounter Type Care Provider Facility Start: 07-29-2023 Telephone encounter Leonardo humphries LEAD INJECTION MOLD TECHNICIAN.WINDOW DECORATOR Work Phone: [facility] Cardiology Procedures Date Procedure Procedure Detail Performing Clinician Start: 07-03-2023 Ecg routine ecg w/le ast 12 lds i&r only Leonardo Nettles LEAD INJECTION MOLD TECHNICIAN.WINDOW DECORATOR Work Phone: Start: 10-16-2016 Adult depression screening assessment Dimitri George DO Work Phone: Start: 08-29-2015 History of coronary artery bypass grafting S/P CABG x 2 Dimitri George DO Work Phone: Start: 03-11-2015 History of coronary artery bypass grafting S/P CABG (coronary artery bypass graft) Leonardo Nettles LEAD INJECTION MOLD TECHNICIAN.WINDOW DECORATOR Work Phone: Coronary artery bypa ss graft MARILYN FELTON LEAD INJECTION MOLD TECHNICIAN-WINDOW DECORATOR Plan of Treatment Date Care Activity Detail Author Start: 06-07-2026 Urine microalbumin profile DTaP,Tdap,Td Vaccine (2 - Td or Tdap) [facility] Start: 04-26-2023 Influenza vaccination Influenza Vaccine (#1) [facility] Start: 08-26-2022 ADVANCE DIRECTIVE DISCUSSION ADVANCE DIRECTIVE DISCUSSION [facility] Start: 08-26-2022 DEPRESSION ASSESSMENT DEPRESSION ASSESSMENT [facility] Start: 05-11-2022 End: 05-09-2023 Echocardiography ECHO Cardiology Routine Essential hypertension, benign Edema of extremities Chest tightness Dizziness Expected: 05/11/2022, Expires: 05/09/2023 [facility] Work Phone: Immunizations Immunization Date Immunization Notes Care Provider Harriett meier 10-26-2016 pneumococcal conjuga te vaccine, 13 valent MARILYN FELTON LEAD INJECTION MOLD TECHNICIAN-WINDOW DECORATOR [facility] 06-07-2016 tetanus toxoid, redu beatrice diphtheria toxoid, and acellular pertussis vaccine, adsorbed MARILYN FELTON LEAD INJECTION MOLD TECHNICIAN-WINDOW DECORATOR [facility] Payers Date Payer Category Payer Medicare [id number] 2021 Medicare [place] ESSENTIAL/PLUS/CONNECT/SNP HMO [id number] 2021-Present [phone] [address] [place] [address] [id number] 2018 Unknown ANTHEM BLUE CROS S AND BLUE SHIELD ANTHEM MEDIBLUE HMO [id number] 2018-Present [phone] [address] [place] [address] HMO [id number] 2018 Unknown [id number] 1950 Unknown [id number] 1949 Unknown [id number] 1949 Unknown [id number] 1949 Unknown [id number] 1949 Unknown [id number] 1949 Unknown [id number] 1949 Unknown [id number] 1949 Unknown [id number] 1949 Unknown [id number] 1949 Unknown [id number] 1949 Unknown [id number] 1949 Unknown [id number] Social History Date Type Detail Facility Start: 02-22-2021 End: 05-09-2022 Tobacco smoking status Ex-smoker (finding) [facility] Start: 1950 Sex Assigned At Male [facility] End: 08-26-1971 History of tobacco use Current smoker [facility] End: 08-26-1971 History of tobacco use Cigarette Smoker [facility] Start: 05-09-2022 End: 07-03-2023 Cigarettes smoked current (pack per day) - Reported 0.3 [facility] Start: 05-09-2022 Tobacco use and exposure Former smokeless tobacco user [facility] Start: 05-09-2022 End: 07-04-2023 Alcohol intake Current non-drinker of alcohol (finding) [facility] Start: 05-09-2022 Tobacco Comment quit at age 24 [facility] Start: 04-29-2022 End: 06-22-2022 Exposure to SARS-CoV-2 (event) Not sure [facility] Start: 1950 Sex Assigned At Not on file [facility] Start: 02-05-2023 End: 07-03-2023 Tobacco use panel [facility] National Score (1-10 0), lower number is lower risk 70 [facility] Start: 05-09-2022 Gender identity Identifies as male gender (finding) [facility] Start: 05-09-2022 Sexual orientation Heterosexual (finding) [facility] Functional Status Date Assessment Result Facility 06-04-2022 Functional Status Room check performed [facility] 06-04-2022 Functional Status Multilevel home [facility] 06-04-2022 Functional Status [facility] 06-04-2022 Functional Status Activity Statu s ADL Awake, Resting, Up to bathroom, Up with assistance [facility] 06-04-2022 Functional Status [facility] 06-03-2022 Functional Status Initiated [facility] 06-03-2022 Functional Status Assistive Device None [facility] 06-03-2022 Functional Status [facility] 06-03-2022 Functional Status Dinner Percent 100 [facility] 06-03-2022 Functional Status Done [facility] 06-03-2022 Functional Status Breakfast Percent 50 [facility] 06-02-2022 Functional Status [facility] 06-02-2022 Functional Status Sensory Deficits None [facility] 06-02-2022 Functional Status Standard Safet y ID band on, Allergy Band on, Call device within reach, Bed in low position, Wheels locked, Upper/Half-Length side-rails up, Phone within reach, personal items within reach, Assistive devices within reach, Toileting device within reach, Bedside Cart Locked, Visitor at bedside, Safety level maintained [facility] Mental Status Date Assessment Result Facility 06-04-2022 Mental Status Oriented x 4 [facility] 06-03-2022 Mental Status [facility] 06-02-2022 Mental Status [facility] 06-02-2022 Mental Status [facility] 06-02-2022 Mental Status Orientation Oriented x 4 [facility] Clinical Notes 12-19-2021 to 07-29-2023 Telephone Encounter - Marycarmen Calle MA - 07/29/2023 11:57 AM ESTTelephone Encounter - Valorie Ash - 07/29/2023 10:38 AM ESTTelephone Encounter - Marycarmen Calle MA - 07/11/2023 11:56 AM EST Note Date & Type Note Facility 07-29-2023 Miscellaneous Notes Eliquis called in to pharmacy. is calling and stating that when he was in you changed him over to Xarelto. She got called out of town and hasn't gotten to use the coupon to fill it yet. She is wondering if we can call him in a refill on the Eliquis 5 mg BID 1 week worth to [facility] till she gets home. He has been taking the Eliquis but just ran out. Can you please do that for him documented in this encounter [facility] 07-11-2023 Miscellaneous Notes Patient calls requesting refill: Requested Prescriptions Pending Prescriptions Disp Refills metoprolol succinate ER (TOPROL XL) 100 mg [Pharmacy Med Name: METOPROLOL SUCC ER 100 MG TAB] 90 tablet 3 Sig: take 1 tablet by mouth once daily Date of last visit:07/03/2023 Phone #: [phone] (home) [phone] (cell) The patients preferred pharmacy has been captured for this encounter? yes documented in this encounter [facility] 07-03-2023 Note HNO ID: [id number] Author: Leonardo Nettles APRN.WINDOW DECORATOR Service: ? Author Type: Nurse Practitioner Type: Progress Notes Filed: 07/03/2023 2:47 PM Note Text: 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 The patient is doing okay from the cardiovascular standpoint. The patient has had chronic dizziness for several years of unknown etiology. He has been evaluated by several physicians. The patient tells me in May 2022 he had an episode of extreme dizziness where he felt like he was going to pass out. A neighbor called 911 and he was taken to [facility]. The patient was diagnosed with atrial flutter at that time. He was started on Adderall and Eliquis. At some point the patient was complaining of dizziness therefore Dr. George decrease sotalol to 40 mg twice daily. The patient then decreased the dose to 40 mg daily. At that point the sotalol was stopped and he was started on Toprol 50 mg twice daily. The patient now tells me that he is only taking Toprol once daily most of the time. The patient is also on Eliquis 5 mg twice daily but is only taking that once a day. He feels like because they do not help his dizziness he should not have to take them. The only other complaint he has at this time is intermittent lower extremity edema. He denies chest pain, PND, orthopnea, syncope, or palpitations. PAST MEDICAL HISTORY Diagnosis Date Benign hypertension Bilateral carotid artery stenosis 05/21/2022 1-39% bilaterally CAD in [place] artery Costochondritis Edema of extremities Fibromyalgia GERD (gastroesophageal reflux disease) Hiatal hernia History of echocardiogram 06/10/2014 EF 60-65%mild MVP mild to mod MR minimal to mild AR mild TR stage 1 diastolic dysfunction History of echocardiogram 05/30/2022 EF 60-65% trivial AR History of stress test 01/03/2017 minimal septal ischemia small inferior wall scar no reversible ischemia EF 62% with mild septal hypokinesis History of stress test 05/30/2022 EF 60% positive for inferior infarct with mild small area of mile-infarct apical ischemia more pronounced perfusion defect compared to 2016 Mitral regurgitation Mitral valve prolapse CAMILO (obstructive sleep apnea) Restless leg syndrome S/P CABG (coronary artery bypass graft) 03/11/2015 CHURCHILL to LAD SVG to ramus intermedius PAST SURGICAL HISTORY Procedure Laterality Date OTHER trigger finger release OTHER 02/11/15 CABG x 2 OTHER tiffany fundoplication at [facility] PAST SURGICAL HISTORY OF 03/2015 right carpal tunnel PAST SURGICAL HISTORY OF Left 2005 left shoulder surgery - scraping PAST SURGICAL HISTORY OF Left 2000 varicose vein stripping FAMILY HISTORY Problem Relation Age of Onset other (melanoma) Brother other (VSD) Brother None Mother other (cancer) Mother None Father other (atherosclerotic heart disease) Father other (VSD) Sister SOCIAL HISTORY: Social History Tobacco Use Smoking status: Former Packs/day: 0.25 Years: 5.00 Additional pack years: 0.00 Total pack years: 1.25 Types: Cigarettes Quit date: 1971 Years since quittin.8 Smokeless tobacco: Former Tobacco comments: quit at age 24 Substance Use Topics Alcohol use: No Drug use: No ALLERGIES: Patient has no known allergies. CURRENT MEDICATIONS: Current Outpatient Medications Medication Sig ELIQUIS 5 mg tab(s) Take 1 tablet by mouth two times a day. metoprolol succinate ER (TOPROL XL) 50 mg 24 hr tablet Take 1 tablet by mouth twice daily. MULTIVITAMIN ORAL once daily. magnesium oxide 400 mg magnesium tab Take by mouth once daily. No current facility-administered medications for this visit. Review of Systems Constitutional: Negative for activity change and fever. Respiratory: Negative for apnea, cough, chest tightness, shortness of breath, wheezing and stridor. Cardiovascular: Positive for leg swelling. Negative for chest pain and palpitations. Gastrointestinal: Negative for abdominal distention, diarrhea and vomiting. Musculoskeletal: Negative for joint swelling, neck pain and neck stiffness. Skin: Negative for color change, pallor and rash. Neurological: Positive for dizziness. Negative for syncope, weakness, light-headedness and numbness. Hematological: Does not bruise/bleed easily. Psychiatric/Behavioral: Negative for agitation, behavioral problems and confusion. The patient is not nervous/anxious. All other systems reviewed and are negative. PHYSICAL EXAMINATION: 07/03/23 1115 BP: 180/102 BP Position: Sitting Pulse: 61 Weight: 84.8 kg (187 lb) Height: 175.3 cm (5' 9 ) Last 3 Encounter BP Readings: Date: BP: 06/22/2022 172/92 05/09/2022 150/78 06/16/2021 210/100 Last 3 Encounter Pulse Readings: Date: Pulse: 06/22/2022 56 05/09/2022 56 06/16/2021 63 Last 3 Encounter Wt Readings: Date: Wt: (more content not included)... [facility] 07-03-2023 History of Present illness Narrative 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 The patient is doing okay from the cardiovascular standpoint. The patient has had chronic dizziness for several years of unknown etiology. He has been evaluated by several physicians. The patient tells me in May 2022 he had an episode of extreme dizziness where he felt like he was going to pass out. A neighbor called 911 and he was taken to [facility]. The patient was diagnosed with atrial flutter at that time. He was started on Adderall and Eliquis. At some point the patient was complaining of dizziness therefore Dr. George decrease sotalol to 40 mg twice daily. The patient then decreased the dose to 40 mg daily. At that point the sotalol was stopped and he was started on Toprol 50 mg twice daily. The patient now tells me that he is only taking Toprol once daily most of the time. The patient is also on Eliquis 5 mg twice daily but is only taking that once a day. He feels like because they do not help his dizziness he should not have to take them. The only other complaint he has at this time is intermittent lower extremity edema. He denies chest pain, PND, orthopnea, syncope, or palpitations. PAST MEDICAL HISTORY Diagnosis Date Benign hypertension Bilateral carotid artery stenosis 05/21/2022 1-39% bilaterally CAD in [place] artery Costochondritis Edema of extremities Fibromyalgia GERD (gastroesophageal reflux disease) Hiatal hernia History of echocardiogram 06/10/2014 EF 60-65%mild MVP mild to mod MR minimal to mild AR mild TR stage 1 diastolic dysfunction History of echocardiogram 05/30/2022 EF 60-65% trivial AR History of stress test 01/03/2017 minimal septal ischemia small inferior wall scar no reversible ischemia EF 62% with mild septal hypokinesis History of stress test 05/30/2022 EF 60% positive for inferior infarct with mild small area of mile-infarct apical ischemia more pronounced perfusion defect compared to 2016 Mitral regurgitation Mitral valve prolapse CAMILO (obstructive sleep apnea) Restless leg syndrome S/P CABG (coronary artery bypass graft) 03/11/2015 CHURCHILL to LAD SVG to ramus intermedius PAST SURGICAL HISTORY Procedure Laterality Date OTHER trigger finger release OTHER 02/11/15 CABG x 2 OTHER 1989' tiffany fundoplication at [facility] PAST SURGICAL HISTORY OF 03/2015 right carpal tunnel PAST SURGICAL HISTORY OF Left 2005 left shoulder surgery - scraping PAST SURGICAL HISTORY OF Left 2000 varicose vein stripping FAMILY HISTORY Problem Relation Age of Onset other (melanoma) Brother other (VSD) Brother None Mother other (cancer) Mother None Father other (atherosclerotic heart disease) Father other (VSD) Sister SOCIAL HISTORY: Social History Tobacco Use Smoking status: Former Packs/day: 0.25 Years: 5.00 Additional pack years: 0.00 Total pack years: 1.25 Types: Cigarettes Quit date: 1971 Years since quittin.8 Smokeless tobacco: Former Tobacco comments: quit at age 24 Substance Use Topics Alcohol use: No Drug use: No ALLERGIES: Patient has no known allergies. CURRENT MEDICATIONS: Current Outpatient Medications Medication Sig ELIQUIS 5 mg tab(s) Take 1 tablet by mouth two times a day. metoprolol succinate ER (TOPROL XL) 50 mg 24 hr tablet Take 1 tablet by mouth twice daily. MULTIVITAMIN ORAL once daily. magnesium oxide 400 mg magnesium tab Take by mouth once daily. No current facility-administered medications for this visit. Review of Systems Constitutional: Negative for activity change and fever. Respiratory: Negative for apnea, cough, chest tightness, shortness of breath, wheezing and stridor. Cardiovascular: Positive for leg swelling. Negative for chest pain and palpitations. Gastrointestinal: Negative for abdominal distention, diarrhea and vomiting. Musculoskeletal: Negative for joint swelling, neck pain and neck stiffness. Skin: Negative for color change, pallor and rash. Neurological: Positive for dizziness. Negative for syncope, weakness, light-headedness and numbness. Hematological: Does not bruise/bleed easily. Psychiatric/Behavioral: Negative for agitation, behavioral problems and confusion. The patient is not nervous/anxious. All other systems reviewed and are negative. PHYSICAL EXAMINATION: 07/03/23 1115 BP: 180/102 BP Position: Sitting Pulse: 61 Weight: 84.8 kg (187 lb) Height: 175.3 cm (5' 9 ) Last 3 Encounter BP Readings: Date: BP: 06/22/2022 172/92 05/09/2022 150/78 06/16/2021 210/100 Last 3 Encounter Pulse Readings: Date: Pulse: 06/22/2022 56 05/09/2022 56 06/16/2021 63 Last 3 Encounter Wt Readings: Date: Wt: 06/22/2022 85.7 kg (189 lb) 05/09/2022 86.6 kg (191 lb) 06/16/2021 87.1 kg (192 lb) Physical Exam Vitals and nursing note reviewed. Constitutional: General: He is not in acute distress. Appearance: Normal appearance. He is not toxic-appearing. HENT: Head: Normocephalic and atraumatic. Nose: Nose normal. Mouth/Throat: Mouth: Mucous membranes are moist. Neck: Vascular: No carotid bruit. Cardiovascular: Rate and Rhythm: Normal rate and regular rhythm. Pulses: Normal pulses. Heart sounds: Normal heart sounds. No murmur heard. No friction rub. No gallop. Pulmonary: Effort: Pulmonary effort is normal. No respiratory distress. Breath sounds: Normal breath sounds. No stridor. No wheezing, rhonchi or rales. Chest: Chest wall: No tenderness. Abdominal: General: Abdomen is flat. There is no distension. Palpations: Abdomen is soft. There is no mass. Tenderness: There is no abdominal tenderness. Musculoskeletal: General: No swelling. Cervical back: Normal range of motion. No muscular tenderness. Right lower leg: No edema. Left lower leg: No edema. Skin: General: Skin is warm and dry. Capillary Refill: Capillary refill takes less than 2 seconds. Coloration: Skin is not jaundiced or pale. Findings: No bruising or rash. Neurological: Mental Status: He is alert and oriented to person, place, and time. Mental status is at baseline. Motor: No weakness. Gait: Gait normal. Psychiatric: Mood and Affect: Mood normal. Behavior: Behavior normal. Diagnostic results: EKG: Sinus rhythm, 61 bpm, right bundle branch block, left axis deviation ASSESSMENT/PLAN: 1. Benign hypertension - ICD9: 401.1, ICD10: I10 Target BP 130/80 or less. The pt is on chronic medications. Blood pressure not well controlled. Systolic pressures run around 160 at home. The patient is supposed to be taking Toprol 50 mg twice daily but he typically only takes it once a day. After long discussion, the patient is agreed to try taking Toprol 100 mg once a day it is unlikely that he will be compliant but we will try. 2. CAD in [place] artery - ICD9: 414.01, ICD10: I25.10 Two-vessel CABG in 2014 with CHURCHILL-LAD and SVG-RI. Stress test in 2021 showed EF normal at 60% with inferior infarct with small area of mile-infarct ischemia in the apical area more pronounced perfusion defect compared to 2016. Patient on chronic medication. He is not complaining of chest pain. 3. Mitral valve prolapse - ICD9: 424.0, ICD10: I34.1 Mild mitral valve prolapse by echocardiogram performed in 2013 not mentioned on 2021 echocardiogram. Stable. 4. Nonrheumatic mitral valve regurgitation - ICD9: 424.0, ICD10: I34.0 Trivial mitral regurgitation by echocardiogram performed in 2021. 5. [facility] use anticoagulant Patient is on Eliquis 5 mg twice daily. Patient only takes Eliquis once a day most of the time. He does not feel is doing anything therefore he only takes it once a day. We discussed trying Xarelto 20 mg once a day as he is not doing well taking pills twice a day. For now he has agreed. We will stop Eliquis and start Xarelto 20 mg daily. documented in this encounter [facility] 06-21-2023 Miscellaneous Notes Patient calls requesting refill: Requested Prescriptions Pending Prescriptions Disp Refills ELIQUIS 5 mg tab(s) 60 tablet 0 Sig: Take 1 tablet by mouth two times a day. Date of last visit:06/22/22 NOV 07/03/23 Phone #: [phone] (home) [phone] (cell) The patients preferred pharmacy has been captured for this encounter? yes is calling and stating that the patient needs a refill on Eliquis 5 mg BID 30 day refill called into [facility]. Has an appointment on 07/03 and is out. Can you please do that for them documented in this encounter [facility] 11-05-2022 Miscellaneous Notes The increase meds last time casued incrsae symtponsand we had to decrease the amount But will try again to twice a day MyChart message: Since Ulyssesers been on Metoprolol this past week his BP has been running 167/87. Should he take 1 twice aday documented in this encounter [facility] 10-08-2022 Miscellaneous Notes Patient's notified of the message and was agreeable with it and will notify the patient. Will start Toprol 50mg daily. Do you want to switch his medication and if so what do you want to switch to? At this point, the medication is considered so subtherapeutic, he may be better off just changing to BP medications- such as metoprolol or cardizem and see how he feels since he is not tolerating the Sotalol. Will need to stay on Eliquis MyChart message: David has very dizzy and decided to cut my sotoal down to 1/2 once aday. Dizziness has gotten better. BP after 3 days is 154/83 to160/84. Please advise if this ok ( this is his and remember he joined the [employer]) documented in this encounter [facility] 06-22-2022 Note HNO ID: [id number] Author: Dimitri George, Service: ? Author Type: Physician Type: Progress Notes Filed: 06/24/2022 8:54 PM Note Text: Referring Provider: Dimitri George, Date: June 22, 2022 Chief Complaint: Established Patient Follow-Up (1 month follow up for Dizziness) HISTORY OF PRESENT ILLNESS: David Jacobson is a 72 year old male who presents for Established Patient Follow-Up (1 month follow up for Dizziness). ALLERGIES No Known Allergies PAST MEDICAL HISTORY: PAST MEDICAL HISTORY Diagnosis Date Benign hypertension Bilateral carotid artery stenosis 05/21/2022 1-39% bilaterally CAD in [place] artery Chest pain in adult Costochondritis Dizziness Edema of extremities Fibromyalgia GERD (gastroesophageal reflux disease) Hiatal hernia History of echocardiogram 06/10/2014 EF 60-65%mild MVP mild to mod MR minimal to mild AR mild TR stage 1 diastolic dysfunction History of echocardiogram 05/30/2022 EF 60-65% trivial AR History of stress test 01/03/2017 minimal septal ischemia small inferior wall scar no reversible ischemia EF 62% with mild septal hypokinesis History of stress test 05/30/2022 EF 60% positive for inferior infarct with mild small area of mile-infarct apical ischemia more pronounced perfusion defect compared to 2016 Mitral regurgitation Mitral valve prolapse CAMILO (obstructive sleep apnea) Restless leg syndrome S/P CABG (coronary artery bypass graft) 03/11/2015 CHURCHILL to LAD SVG to ramus intermedius PAST SURGICAL HISTORY Procedure Laterality Date OTHER trigger finger release OTHER 02/11/15 CABG x 2 OTHER tiffany fundoplication at [facility] PAST SURGICAL HISTORY OF 03/2015 right carpal tunnel PAST SURGICAL HISTORY OF Left 2005 left shoulder surgery - scraping PAST SURGICAL HISTORY OF Left 2000 varicose vein stripping FAMILY HISTORY Problem Relation Age of Onset other (melanoma) Brother other (VSD) Brother None Mother other (cancer) Mother None Father other (atherosclerotic heart disease) Father other (VSD) Sister SOCIAL HISTORY: Tobacco Use: .25 packs/day, for 5 years. Quit 08/26/1971. Types: Cigarettes Alcohol Use: No Drug Use: No Employer And Job Title: None on file Years Of Education Completed: Not specified Marital Status: MEDICATIONS: Current Outpatient Medications Medication Sig sotalol (BETAPACE) 80 mg tablet Take 80 mg by mouth twice daily. ELIQUIS 5 mg tab(s) Take 5 mg by mouth twice daily. MULTIVITAMIN ORAL once daily. magnesium oxide 400 mg magnesium tab Take by mouth once daily. lansoprazole (PREVACID) 15 mg capsule Take 15 mg by mouth twice daily. No current facility-administered medications for this visit. I have personally reviewed the patients past medical history including social, family, surgical, diagnostics, and medications. REVIEW OF SYSTEMS: Review of Systems Constitutional: Negative for chills and fatigue. Respiratory: Negative for chest tightness and shortness of breath. Cardiovascular: Positive for leg swelling. Negative for chest pain and palpitations. Neurological: Positive for dizziness. Negative for syncope, weakness and light-headedness. Hematological: Does not bruise/bleed easily. Psychiatric/Behavioral: Negative for confusion and hallucinations. Vitals: BP 172/92 Pulse (!) 56 Ht 175.3 cm (5' 9 ) Wt 85.7 kg (189 lb) BMI 27.91 kg/m? PHYSICAL EXAMINATION: BP 172/92 Pulse (!) 56 Ht 175.3 cm (5' 9 ) Wt 85.7 kg (189 lb) BMI 27.91 kg/m? Last 3 Encounter BP Readings: Date: BP: 05/09/2022 150/78 06/16/2021 210/100 06/10/2020 142/70 Last 3 Encounter Pulse Readings: Date: Pulse: 05/09/2022 56 06/16/2021 63 06/10/2020 62 Last 3 Encounter Wt Readings: Date: Wt: 05/09/2022 86.6 kg (191 lb) 06/16/2021 87.1 kg (192 lb) 06/10/2020 92.5 kg (204 lb) Physical Exam Vitals reviewed. Constitutional: General: He is not in acute distress. Cardiovascular: Rate and Rhythm: Normal rate and regular rhythm. Pulses: Carotid pulses are 2+ on the right side and 2+ on the left side. Radial pulses are 2+ on the right side and 2+ on the left side. Femoral pulses are 2+ on the right side and 2+ on the left side. Popliteal pulses are 2+ on the right side and 2+ on the left side. Dorsalis pedis pulses are 2+ on the right side and 2+ on the left side. Posterior tibial pulses are 2+ on the right side and 2+ on the left side. Heart sounds: Murmur heard. Systolic murmur is present with a grade of 2/6. Comments: PMI not displaced. 2nd heart sound loud. Pulmonary: Effort: Pulmonary effort is normal. Breath sounds: Normal breath sounds. Abdominal: General: Abdomen is flat. Bowel sounds are normal. Palpations: Abdomen is soft. Tenderness: There is no abdominal tenderness. Musculoskeletal: Right lower leg: No edema. Left lower leg: No edema. Skin: General: Skin is warm. Findings: No rash or wo (more content not included)... [facility] 06-22-2022 History of Present illness Narrative Referring Provider: Dimitri George DO Date: June 22, 2022 Chief Complaint: Established Patient Follow-Up (1 month follow up for Dizziness) HISTORY OF PRESENT ILLNESS: David Jacobson is a 72 year old male who presents for Established Patient Follow-Up (1 month follow up for Dizziness). ALLERGIES No Known Allergies PAST MEDICAL HISTORY: PAST MEDICAL HISTORY Diagnosis Date Benign hypertension Bilateral carotid artery stenosis 05/21/2022 1-39% bilaterally CAD in [place] artery Chest pain in adult Costochondritis Dizziness Edema of extremities Fibromyalgia GERD (gastroesophageal reflux disease) Hiatal hernia History of echocardiogram 06/10/2014 EF 60-65%mild MVP mild to mod MR minimal to mild AR mild TR stage 1 diastolic dysfunction History of echocardiogram 05/30/2022 EF 60-65% trivial AR History of stress test 01/03/2017 minimal septal ischemia small inferior wall scar no reversible ischemia EF 62% with mild septal hypokinesis History of stress test 05/30/2022 EF 60% positive for inferior infarct with mild small area of mile-infarct apical ischemia more pronounced perfusion defect compared to 2016 Mitral regurgitation Mitral valve prolapse CAMILO (obstructive sleep apnea) Restless leg syndrome S/P CABG (coronary artery bypass graft) 03/11/2015 CHURCHILL to LAD SVG to ramus intermedius PAST SURGICAL HISTORY Procedure Laterality Date OTHER trigger finger release OTHER 02/11/15 CABG x 2 OTHER 1989' tiffany fundoplication at [facility] PAST SURGICAL HISTORY OF 03/2015 right carpal tunnel PAST SURGICAL HISTORY OF Left 2005 left shoulder surgery - scraping PAST SURGICAL HISTORY OF Left 2000 varicose vein stripping FAMILY HISTORY Problem Relation Age of Onset other (melanoma) Brother other (VSD) Brother None Mother other (cancer) Mother None Father other (atherosclerotic heart disease) Father other (VSD) Sister SOCIAL HISTORY: Tobacco Use: .25 packs/day, for 5 years. Quit 08/26/1971. Types: Cigarettes Alcohol Use: No Drug Use: No Employer And Job Title: None on file Years Of Education Completed: Not specified Marital Status: MEDICATIONS: Current Outpatient Medications Medication Sig sotalol (BETAPACE) 80 mg tablet Take 80 mg by mouth twice daily. ELIQUIS 5 mg tab(s) Take 5 mg by mouth twice daily. MULTIVITAMIN ORAL once daily. magnesium oxide 400 mg magnesium tab Take by mouth once daily. lansoprazole (PREVACID) 15 mg capsule Take 15 mg by mouth twice daily. No current facility-administered medications for this visit. I have personally reviewed the patients past medical history including social, family, surgical, diagnostics, and medications. REVIEW OF SYSTEMS: Review of Systems Constitutional: Negative for chills and fatigue. Respiratory: Negative for chest tightness and shortness of breath. Cardiovascular: Positive for leg swelling. Negative for chest pain and palpitations. Neurological: Positive for dizziness. Negative for syncope, weakness and light-headedness. Hematological: Does not bruise/bleed easily. Psychiatric/Behavioral: Negative for confusion and hallucinations. Vitals: BP 172/92 Pulse (!) 56 Ht 175.3 cm (5' 9 ) Wt 85.7 kg (189 lb) BMI 27.91 kg/m PHYSICAL EXAMINATION: BP 172/92 Pulse (!) 56 Ht 175.3 cm (5' 9 ) Wt 85.7 kg (189 lb) BMI 27.91 kg/m Last 3 Encounter BP Readings: Date: BP: 05/09/2022 150/78 06/16/2021 210/100 06/10/2020 142/70 Last 3 Encounter Pulse Readings: Date: Pulse: 05/09/2022 56 06/16/2021 63 06/10/2020 62 Last 3 Encounter Wt Readings: Date: Wt: 05/09/2022 86.6 kg (191 lb) 06/16/2021 87.1 kg (192 lb) 06/10/2020 92.5 kg (204 lb) Physical Exam Vitals reviewed. Constitutional: General: He is not in acute distress. Cardiovascular: Rate and Rhythm: Normal rate and regular rhythm. Pulses: Carotid pulses are 2+ on the right side and 2+ on the left side. Radial pulses are 2+ on the right side and 2+ on the left side. Femoral pulses are 2+ on the right side and 2+ on the left side. Popliteal pulses are 2+ on the right side and 2+ on the left side. Dorsalis pedis pulses are 2+ on the right side and 2+ on the left side. Posterior tibial pulses are 2+ on the right side and 2+ on the left side. Heart sounds: Murmur heard. Systolic murmur is present with a grade of 2/6. Comments: PMI not displaced. 2nd heart sound loud. Pulmonary: Effort: Pulmonary effort is normal. Breath sounds: Normal breath sounds. Abdominal: General: Abdomen is flat. Bowel sounds are normal. Palpations: Abdomen is soft. Tenderness: There is no abdominal tenderness. Musculoskeletal: Right lower leg: No edema. Left lower leg: No edema. Skin: General: Skin is warm. Findings: No rash or wound. Neurological: Mental Status: He is alert and oriented to person, place, and time. Coordination: Coordination is intact. LABS: No results found for: GLUC, K, NA, CHLOR, CO2, CREAT, BUN, ANION, CA, TPROT, ALB, TBILI, ALKPHOS, AST, ALT No results found for: HB, HCT, WBC No results found for: CHOL, HDL, LDL, TG EKG: DIAGNOSTIC TEST RESULTS: Recent Results (from the past 24 hour(s)) ECG COMPLETE Collection Time: 06/22/22 10:27 AM Result Value Ref Range Ventricular Rate 56 BPM Atrial Rate 56 BPM P-R Interval 178 ms QRS Duration 162 ms QT Interval 458 ms QTC Calculation (Bazett) 441 ms Calculated P [place] 13 degrees Calculated R [place] -37 degrees Calculated T [place] 3 degrees Narrative NAME : DAVID JACOBSON PID : [id number] : 1950 Gender : Male Race : ORD : [id number] Procedure Date : Jun 22 2022 10:27:22 Edit Date : Jun 22 2022 10:27:26 Diagnosis: SINUS BRADYCARDIA LEFT AXIS DEVIATION COMPLETE RIGHT BUNDLE BRANCH BLOCK LEFT VENTRICULAR HYPERTROPHY INFERIOR MYOCARDIAL INFARCTION , AGE UNDETERMINED ABNORMAL ECG WHEN COMPARED WITH ECG OF 08-JUN-2022 11:59, NO SIGNIFICANT CHANGE WAS FOUND Test Reason : Location : [facility] : [facility] Overread By : , Edited By : , Referred By : DIMITRI GEORGE Acquired by : , Impression SINUS BRADYCARDIA LEFT AXIS DEVIATION COMPLETE RIGHT BUNDLE BRANCH BLOCK LEFT VENTRICULAR HYPERTROPHY INFERIOR MYOCARDIAL INFARCTION , AGE UNDETERMINED ABNORMAL ECG WHEN COMPARED WITH ECG OF 08-JUN-2022 11:59, NO SIGNIFICANT CHANGE WAS FOUND ASSESSMENT/PLAN: 1. Dizziness - ICD9: 780.4, ICD10: R42 (primary diagnosis) Patient states getting dizzy when moves to quickly. We will cut his Sotalol to 40 mg BID to see if it helps with the dizziness. Patient stated that he drinks plenty of water. 2. Coronary artery disease involving [place] coronary artery of [place] heart without angina pectoris - ICD9: 414.01, ICD10: I25.10 Chronic Condition. Patient denies symptoms of chest pain, pressure, tightness or fullness. 3. Essential hypertension, benign - ICD9: 401.1, ICD10: I10 Patient's blood pressure in the office today was recorded as 172/92. Target systolic BP 140 or less and diastolic BP 90 or less. Continue current medications. EKG done in office today. - ECG COMPLETE [place] incomplete right branch block the EKG today was abnormal. I was able to look at the prior EKG and compared to today's EKG looking for changes. In the pictorial format we went over the EKG demonstrating the intervals and timing of the intervals. We also described the complexes shape and format. 4. Bilateral carotid artery stenosis - ICD9: 433.10, 433.30, ICD10: I65.23 Patient had Carotid US done on 05/21/22 and it showed 1-39% bilaterally. 5. Mitral valve insufficiency, unspecified etiology - ICD9: 424.0, ICD10: I34.0 Patient had Echo done on 05/30/22 and it showed EF 60-65% trivial AR. 6. History of stress test - ICD9: V15.89, ICD10: Z92.89 Patient had Stress Test done on 05/30/22 and it showed EF 60% positive for inferior infarct with mild small area of mile-infarct apical ischemia more pronounced perfusion defect compared to 2017. 7. CAMILO (obstructive sleep apnea) - ICD9: 327.23, ICD10: G47.33 Patient currently using CPAP every night. 8. Former smoker - ICD9: V15.82, ICD10: Z87.891 Patient was a 0.25 pack smoker until 1971 when she stopped smoking. Patient was a smoker for 5 years. IMarycarmen MA, scribing for Dr. Dimitri George. Follow up in: 1 year follow up Prior to entering the room, I reviewed the last progress note including the diagnosis and plan of action. When available, I then reviewed the last heart catheterization, stress test, echocardiogram and EKG. I proceeded to review the medial therapy and any side effects the patient may have had in the past. I was able to look at the last several EKGs. A new EKG was performed today and an interetation was performed. I reviewed its interpretation with the family and compared it to the previous EKGs that we have in the medical records. Changes were described to the patient. In a pictorial format; I described the NE and QRS intervals. This was to show the effects of antiarrhythmic therapy on the electrical system. I was able to look at the past several EKG's. A new EKG was performed today and interpretation was noted. I reviewed this interpretation with the patient, and the family when available, and compared it to the previous EKG's that we have in the medical record. Since my office visit was carried out with a scribe, while in the exam room I was able to devote one hundred percent of my time in [id number] conversation with the patient. I answered all the questions and explained the diagnosis of dizziness lightheadedness most likely related to medicinal therapy. Greater that 51% of my time was spent with [id number] conversation with the patient. I have discussed the recommended treatment, alternative therapies and other options in detail. I've discussed the best benefit and side effects of these recommended treatments. I've attempted to answer all the questions to the patient's satisfaction and understanding. With approval, we would recommend an pursue the current therapy such as decreased Betapace therapy. After leaving the exam room, I went back into the patient's chart and coordinated care with my nurse ordering the proper testing and medicinal changes. Letter was performed with voice recognition algorithms and sent to the referring team. The chart was completed. Including the pre-exam, exam and post-exam, the total time spent in the patient's management was greater than 15 minutes I, Dr. Dimitri George, have reviewed and agree with the information in the medical record. Dimitri George DO documented in this encounter [facility] 06-08-2022 Note HNO ID: [id number] Author: Marycarmen Calle MA Service: ? Author Type: Fitness Worker Type: Progress Notes Filed: 06/28/2022 2:56 PM Note Text: EKG Check EKG performed per protocol on [facility] EKG after starting Sotalol 80 mg BID Name and reviewed and verified with patient. Allergies reviewed and verified with patient. Current Outpatient Medications Medication Sig acetaminophen (TYLENOL) 500 mg tablet Take by mouth as needed. atenolol (TENORMIN) 50 mg tablet Take 1 tablet by mouth once daily. (Patient taking differently: Take 50 mg by mouth every 48 hours.) MULTIVITAMIN ORAL once daily. magnesium oxide 400 mg magnesium tab Take by mouth once daily. lansoprazole (PREVACID) 15 mg capsule Take 15 mg by mouth twice daily. aspirin, enteric coated (ASPIRIN, ENTERIC COATED) 81 mg EC tablet Take 81 mg by mouth once daily. No current facility-administered medications for this visit. Patient is taking medication as prescribed Yes Took medication today Yes Experiencing side effects No Physician notified of EKG readings Yes Marycarmen Calle MA [facility] 06-08-2022 History of Present illness Narrative EKG Check EKG performed per protocol on [facility] EKG after starting Sotalol 80 mg BID Name and reviewed and verified with patient. Allergies reviewed and verified with patient. Current Outpatient Medications Medication Sig acetaminophen (TYLENOL) 500 mg tablet Take by mouth as needed. atenolol (TENORMIN) 50 mg tablet Take 1 tablet by mouth once daily. (Patient taking differently: Take 50 mg by mouth every 48 hours.) MULTIVITAMIN ORAL once daily. magnesium oxide 400 mg magnesium tab Take by mouth once daily. lansoprazole (PREVACID) 15 mg capsule Take 15 mg by mouth twice daily. aspirin, enteric coated (ASPIRIN, ENTERIC COATED) 81 mg EC tablet Take 81 mg by mouth once daily. No current facility-administered medications for this visit. Patient is taking medication as prescribed Yes Took medication today Yes Experiencing side effects No Physician notified of EKG readings Yes Marycarmen Calle MA documented in this encounter [facility] 06-04-2022 Cardiology Progress note Date of Service 06/04/22 Chief Complaint Atrial flutter Subjective Seen and examined. No complaints when seen. Ambulating and eating appropriately. Maintaining sinus rhythm on telemetry. Objective Vitals and Measurements T: 36.4 C (Oral) TMIN: 36.4 C (Oral) TMAX: 36.7 C (Oral) HR: 74(Monitored) RR: 16 BP: 120/74 SpO2: 97% WT: 83.6 kg Intake and Output 7AM Yesterday to 7AM Today Intake and Output (Last 24 hours) Intake Oral Intake 440.00 Output Urine Voided 600.00 Total Summary Total Intake 440.00 Total Output 600.00 Fluid Balance -160.00 Physical Exam Constitutional: no distress, appears stated age ENT: No thyroid masses Respiratory: Clear to auscultation, no adventitious sounds Cardiovascular: RRR, S1 and S2, no murmurs, JVP 8-10 cm H2O, no pedal edema GI: Soft, nondistended, bowel sounds present Musculoskeletal: no deformity Skin: Warm to touch, dry Neurological: Alert and oriented Weight Current Weight Dosing Weight: 87.1 kg (06/02/22) Current Weight: 83.6 kg (06/04/22) Medications Medications (11) Active Scheduled: (7) apixaban 5 mg tablet 5 mg 1 tab(s), Oral, BID aspirin 81 mg EC 81 mg 1 tab(s), Oral, qDayM doxazosin 4 mg Tablet 4 mg 1 tab(s), Oral, qHS finasteride 5 mg tablet 5 mg 1 tab(s), Oral, qDay metoprolol succinate 50 mg ER tablet 50 mg 1 tab(s), Oral, BID multivitamin tablet 1 tab(s), Oral, Daily No metformin for 48 hrs post contrast 1 EA, Miscellaneous, Unscheduled Continuous: (0) PRN: (4) acetaminophen 325 mg Tablet 650 mg 2 tab(s), Oral, q4h albuterol - ipratropium 2.5 mg-0.5 mg/3 mL Inhal Fouzia UD 3 mL, Inhalation, q4hRT melatonin 3 mg tablet 3 mg 1 tab(s), Oral, qHS metoprolol 1 mg/mL (5mL) vial 5 mg 5 mL, IV Push, q6h Lab Results 06/04 05:01 WBC: 6.6 Hgb: 13.9 Hct: 40.0 Platelet: 202 Neutrophil %: 67.5 Glucose Level: 111 Sodium Level: 139 Potassium Level: 4.8 BUN: 27.0 H Creatinine Lvl (s): 1.35 06/03 09:51 Protime: 13.8 PT International Ratio: 1.2 06/03 04:55 WBC: 7.2 Hgb: 14.5 Hct: 42.1 Platelet: 200 Neutrophil %: 62.0 Glucose Level: 109 Sodium Level: 140 Potassium Level: 4.3 BUN: 19.0 Creatinine Lvl (s): 1.24 EKG EKG - Completed -- 06/02/22 18:47:00 EDT EKG - Completed -- 06/03/22 8:39:00 EDT EKG - Completed -- 06/03/22 20:54:00 EDT Assessment/Plan Orders: Transfer/Change in Level of Care Assessment: STEMI alert/unchanged angiographic CAD CAD with CABG and suspected mitral valve repair (records not available for review) Atypical atrial flutter (suspect prior atriotomy from cardiac surgery), [id number] VASC 3 Chronic right bundle branch block, LVH LVEF 50-55%, concentric LVH HTN CV: BKD Plan: -Patient converted to normal sinus rhythm from atypical atrial flutter on Toprol-XL 50 mg twice daily -Recommend transitioning to sotalol 80 mg twice daily to prevent further recurrence of atrial flutter along with anticoagulation for stroke risk reduction -Check ECG prior to discharge (QT 415 ms, QRS 147 MS) and 2 days later as an outpatient -Can follow-up with EP in 2 to 3 weeks Tsering Oates, PGY5 Business Operations Director pager [phone], Cortext Digitally Signed by TSERING OATES MD on 06/04/2022 04:40 PM [facility] 06-04-2022 Hospital Discharge instructions Patient Education 06/04/2022 14:43:51 Atrial Flutter Atrial Flutter Atrial flutter is a type of abnormal heart rhythm (arrhythmia). The heart has an electrical system that tells the heart how to beat. In atrial flutter, the signals move rapidly in the top chambers of the heart (the atria). This makes your heart beat very fast. Atrial flutter can come and go, or it can be permanent. If this condition is not treated it can cause serious complications, such as stroke or weakened heart muscle (cardiomyopathy). What are the causes? This condition may be caused by: A heart condition or problem, such as: ?A heart attack. ?Heart failure. ?A heart valve problem. ?Heart surgery. A lung problem, such as: ?A blood clot in the lungs (pulmonary embolism, or PE). ?Chronic obstructive pulmonary disease. Poorly controlled high blood pressure (hypertension). Overactive thyroid (hyperthyroidism). Caffeine. Some decongestant cold medicines. Low levels of minerals called electrolytes in the blood. Cocaine. What increases the risk? You are more likely to develop this condition if: You are an elderly adult. You are a man. You are obese. You have obstructive sleep apnea. You have a family history of atrial flutter. You have diabetes. What are the signs or symptoms? Symptoms of this condition include: A feeling that your heart is pounding or racing (palpitations). Shortness of breath. Chest pain. Feeling light-headed. Dizziness. Fainting. Low blood pressure (hypotension). Fatigue. Sometimes there are no symptoms associated with arrhythmia. How is this diagnosed? This condition may be diagnosed based on: An electrocardiogram (ECG). This is a test that records the electrical signals in the heart. Ambulatory cardiac monitoring. This is a small recording device that is connected by wires to flat, sticky disks (electrodes) that are attached to your chest. An echocardiogram. This is a test that uses sound waves to create pictures of your heart. A transesophageal echocardiogram (KELLI). In this test, a device is placed down your esophagus. This device then uses sounds waves to create even closer pictures of your heart. Stress test. This test records your heartbeat while you exercise and checks to see if the heart muscle is receiving adequate blood supply. How is this treated? This condition may be treated with: Medicines to: ?Make your heart beat more slowly. ?Keep your heart in normal rhythm. ?Prevent a stroke. Cardioversion. This uses medicines or an electrical shock to make the heart beat normally. Ablation. This destroys the heart tissue that is causing the problem. In some cases, your health care provider will treat other underlying conditions. Follow these instructions at home: Medicines Take [id number]-[id number] and prescription medicines only as told by your health care provider. ?Make sure you take your medicines exactly as told by your health care provider. ?Do not miss any doses. Do not take any new medicines without talking to your health care provider. Lifestyle Eat heart-healthy foods. Talk with a dietitian to make an eating plan that is right for you. Do not use any products that contain nicotine or tobacco, such as cigarettes and e-cigarettes. If you need help quitting, ask your health care provider. Limit alcohol intake to no more than 1 drink per day for non women and 2 drinks per day for men. One drink equals 12 oz of beer, 5 oz of wine, or 1 oz of hard liquor. Try to reduce any stress. Stress can make your symptoms worse. Get screened for sleep apnea. If you have the condition, work with your health care provider to find a treatment that works for you. Do not use drugs. Avoid excessive caffeine. General instructions Lose weight if your health care provider tells you to do that. Keep all follow-up visits as told by your health care provider. This is important. Contact a health care provider if: Your symptoms get worse. You notice that your palpitations are increasing. Get help right away if: You have any symptoms of a stroke. BE FAST is an easy way to remember the main warning signs of a stroke: ?B - Balance. Signs are dizziness, sudden trouble walking, or loss of balance. ?E - Eyes. Signs are trouble seeing or a sudden change in vision. ?F - Face. Signs are sudden weakness or numbness of the face, or the face or eyelid drooping on one side. ?A - Arms. Signs are weakness or numbness in an arm. This happens suddenly and usually on one side of the body. ?S - Speech. Signs are sudden trouble speaking, slurred speech, or trouble understanding what people say. ?T - Time. Time to call emergency services. Write down what time symptoms started. You have other signs of a stroke, such as: ? A sudden, severe headache with no known cause. ? Nausea or vomiting. ? Seizure. You have additional symptoms, such as: ?Fainting. ?Shortness of breath. ?Pain or pressure in your chest. ?Suddenly feeling nauseous or suddenly vomiting. ?Increased sweating with no known cause. These symptoms may represent a serious problem that is an emergency. Do not wait to see if the symptoms will go away. Get medical help right away. Call your local emergency services (911 in the [place] Do not drive yourself to the hospital. Summary Atrial flutter is an abnormal heart rhythm that can give you symptoms of palpitations, shortness of breath, or fatigue. Atrial flutter is often treated with medicines to keep your heart in a normal rhythm and to prevent a stroke. You should seek immediate help if you cannot catch your breath, have chest pain or pressure, or have weakness, especially on one side of your body. This information is not intended to replace advice given to you by your health care provider. Make sure you discuss any questions you have with your health care provider. Document Released: 12/29/2009 Document Revised: 05/01/2019 Document Reviewed: 05/15/2018 [employer] Patient Education 2020 [place]. Follow Up Care 06/02/2022 17:02:24 With:CINDY GOMEZ Address: [address] [place] [address] [phone] Business (1) When:Within 2 Week(s) With:KARAN LEAHY MD Address: [address] [place] [address] [phone] When:Within 2 Week(s) With:MARILYN FELTON APRN-WINDOW DECORATOR Address: [address] [place] [address]- When:1-2 days Comments:Please call the office to schedule a follow up appointment [facility] 06-04-2022 Cardiology Progress note Date of Service 06/04/22 Chief Complaint Chest pain Subjective NAEO; chest pain free without complaints. ECHO (06/03/22): Summary: 1. Left ventricle: The cavity size is normal. Wall thickness is increased. Concentric Left Ventricular Hypertrophy Systolic function is normal. The estimated ejection fraction is 50-55%. 2. Ventricular septum: Thickness is mildly increased. Septal motion is paradoxical. Objective Vitals and Measurements T: 36.4 C (Oral) TMIN: 36.4 C (Oral) TMAX: 36.7 C (Oral) HR: 74(Monitored) RR: 16 BP: 120/74 SpO2: 97% WT: 83.6 kg Intake and Output 7AM Yesterday to 7AM Today Intake and Output (Last 24 hours) Intake Administration Information 35.00 Oral Intake 560.00 Output Urine Voided 600.00 Stool Count 0.00 Total Summary Total Intake 595.00 Total Output 600.00 Fluid Balance -5.00 Physical Exam Constitutional: No acute distress, AOx4 in the right something Head: Normocephalic, nontraumatic Cardiac: Regular rate and rhythm, no murmurs, rubs, gallops. Normal S1, 2. No audible S3 Lungs: CTABL, no rales, wheezes, or rhonchi. No accessory muscle use. No labored breathing. Abdomen: Soft, nontender, nondistended, normoactive bowel tones, no hepatosplenomegaly Musculoskeletal: No lower extremity edema, ROM intact x4 Skin: Warm, dry, no lesions, no erythema Psychiatric: Mood, insight, judgement normal Weight Current Weight Dosing Weight: 87.1 kg (06/02/22) Current Weight: 83.6 kg (06/04/22) Medications Medications (12) Active Scheduled: (6) aspirin 81 mg EC 81 mg 1 tab(s), Oral, qDayM doxazosin 4 mg Tablet 4 mg 1 tab(s), Oral, qHS finasteride 5 mg tablet 5 mg 1 tab(s), Oral, qDay metoprolol succinate 50 mg ER tablet 50 mg 1 tab(s), Oral, BID multivitamin tablet 1 tab(s), Oral, Daily No metformin for 48 hrs post contrast 1 EA, Miscellaneous, Unscheduled Continuous: (1) heparin 25,000 unit(s) + Dextrose 5% Premix Diluent 250 mL 250 mL, Intravenous, 10 mL/hr PRN: (5) acetaminophen 325 mg Tablet 650 mg 2 tab(s), Oral, q4h albuterol - ipratropium 2.5 mg-0.5 mg/3 mL Inhal Fouzia UD 3 mL, Inhalation, q4hRT heparin 5,000 units/mL (1 mL) vial 4,000 unit(s) 0.8 mL, IV Push, q6h melatonin 3 mg tablet 3 mg 1 tab(s), Oral, qHS metoprolol 1 mg/mL (5mL) vial 5 mg 5 mL, IV Push, q6h Lab Results 06/04 05:01 WBC: 6.6 Hgb: 13.9 Hct: 40.0 Platelet: 202 Neutrophil %: 67.5 Glucose Level: 111 Sodium Level: 139 Potassium Level: 4.8 BUN: 27.0 H Creatinine Lvl (s): 1.35 06/03 09:51 Protime: 13.8 PT International Ratio: 1.2 06/03 04:55 WBC: 7.2 Hgb: 14.5 Hct: 42.1 Platelet: 200 Neutrophil %: 62.0 Glucose Level: 109 Sodium Level: 140 Potassium Level: 4.3 BUN: 19.0 Creatinine Lvl (s): 1.24 EKG EKG - Completed -- 06/02/22 18:47:00 EDT EKG - Completed -- 06/03/22 8:39:00 EDT EKG - Completed -- 06/03/22 20:54:00 EDT Assessment/Plan 1. New onset atrial flutter 2. CAD with prior 2v CABG in 2014 (CHURCHILL-LAD, SVG-RI) 3. Comorbidities: HTN, HLD, PVD, CAMILO on CPAP Plan: Patient presented with chest pain and went for heart cath, grafts patent. [place] to be 2/2 atrial flutter. EP consulted, planned for cardioversion but he flipped to NSR. Chest pain free, on heparin. - continue metoprolol, appreciate EP input for possible use of sotalol - switch heparin to apixaban - ASA 81 mg qday - statin intolerant, discuss PSK9i as outpatient Plan discussed with attending physician. Digitally Signed by JOSÉ MORRISON MD on 06/04/2022 02:51 PM [facility] 06-04-2022 Discharge summary Date of Service 06/04/22 Discharge Diagnosis New onset atrial flutter Hospital Course Patient is a 72-year-old male with past medical history of hypertension, hyperlipidemia CAD status post CABG in 2014 with CHURCHILL to the LAD and SVG to the ramus, CAMILO on CPAP, carotid artery stenosis, and peripheral vascular disease went into [place] emergency department complaining of chest pain. Patient said he got substernal chest pain with dinner went to the emergency department for further work-up. When he arrived in the ED STEMI was alerted for EKG changes showing possible ST elevations in leads II, III, and aVF. Patient underwent urgent cardiac catheterization which showed diffuse mild to moderate coronary artery disease with patent grafts. He was noted to be in atrial flutter which was felt to be cause of pain. He converted spontaneously and was started on sotalol/apixaban after consulting EP. He was d/c home and will get an EKG to reassess QTc in 2 days at the [facility] office. Office contacted to assist patient in coordinating followup. Aspirin stopped now that on apixaban to reduce bleeding risk. He is statin intolerant, may need PSK9i. Will follow up on these issues at cardiology office. ECHO (06/03/22): Summary: 1. Left ventricle: The cavity size is normal. Wall thickness is increased. Concentric Left Ventricular Hypertrophy Systolic function is normal. The estimated ejection fraction is 50-55%. 2. Ventricular septum: Thickness is mildly increased. Septal motion is paradoxical. Allergies Statins fentaNYL (irregular heart rate) Consults Consult to Physician - Ordered -- 06/03/22 7:11:00 EDT, CARA AMAYA MD, Routine, none Physical Exam Vitals and Measurements T: 36.4 C (Oral) TMIN: 36.4 C (Oral) TMAX: 36.7 C (Oral) HR: 74(Monitored) RR: 16 BP: 120/74 SpO2: 97% WT: 83.6 kg Weight Current Weight Dosing Weight: 87.1 kg (06/02/22) Current Weight: 83.6 kg (06/04/22) Constitutional: No acute distress, AOx4 in the right something Head: Normocephalic, nontraumatic Cardiac: Regular rate and rhythm, no murmurs, rubs, gallops. Normal S1, 2. No audible S3 Lungs: CTABL, no rales, wheezes, or rhonchi. No accessory muscle use. No labored breathing. Abdomen: Soft, nontender, nondistended, normoactive bowel tones, no hepatosplenomegaly Musculoskeletal: No lower extremity edema, ROM intact x4 Skin: Warm, dry, no lesions, no erythema Psychiatric: Mood, insight, judgement normal Code Status Code Status - Ordered -- 06/04/22 12:01:00 EDT, Full Code, Constant Order Admission Date 06/02/22 Discharge Date 06/04/22 Patient Instructions Please go to the [facility] office in [facility] in 2 days for an EKG. The office will contact you for more information. Medications New Prescription apixaban (apixaban 5 mg oral tablet)1 tab(s) by mouth two (2) times a day. Refills: 3. sotalol (sotalol 80 mg oral tablet)1 tab(s) by mouth two (2) times a day. Refills: 3. Unchanged doxazosin (doxazosin 4 mg oral tablet)1 tab(s) by mouth daily at bedtime. finasteride (finasteride 5 mg oral tablet)1 tab(s) by mouth once a day for 30 Days. Refills: 0. multivitamin (Multivitamin)1 tab(s) by mouth every day. Discontinued acetaminophen (Tylenol)600 Milligram by mouth two (2) times a day. aspirin (aspirin 81 mg oral delayed release tablet)by mouth once a day. atenolol (atenolol 50 mg oral tablet)take 1 tablet by mouth once daily. Follow Up Follow Up with CINDY GOMEZ When In 2 weeks Where: [address] [facility] [address] [place] [address] [phone] Business (1) Follow Up with KARAN LEAHY MD When In 2 weeks Where: [address] [facility] [address] [place] [address] [phone] Follow Up with MARILYN FELTON When Within 1-2 days Why: Please call the office to schedule a follow up appointment Where: [address] [place] [address]- Follow Up Labs/Studies Discharge Labs Discharge Outpatient Labwork - Ordered -- BMP, magnesium, sotalol initiation, follow-up within: 3-5 days, Results Notify to: KARAN LAEHY MD, 06/04/22 14:11:00 EDT Discharge Studies No Follow-up Studies Discharge Diet Discharge Diet - Ordered -- No changes were made to your diet during your hospital stay. Please resume your pre hospitalization diet on discharge., 06/04/22 14:11:00 EDT Discharge Activity Discharge Activity - Ordered -- Lifting Restricted less than 5 pounds, 7 days, 06/04/22 14:11:00 EDT Condition on Discharge Good Discharge Disposition Home Information Provided To Patient Digitally Signed by JOSÉ MORRISON MD on 06/04/2022 02:56 PM [facility] 06-04-2022 Note Discharge Instructions Thank you for allowing [facility] to assist you with your healthcare needs. The following is important discharge information regarding your hospital visit. Your Care Team MARILYN FELTON What to do next Instructions From Your Doctor Please go to the [facility] office in [facility] in 2 days for an EKG. The office will contact you for more information. Scheduled Follow-Up Appointments Appointment Type When With Where Contact InformationPC ZULAY 06/27/2022 08:30 AM EDT ANDRESSA LOUIS DO [address] [address] Follow Up Appointments Follow Up with CINDY GOMEZ When In 2 weeks Where: [address] [facility] [address] [place] [address] [phone] Business (1) Follow Up with KARAN LEAHY MD When In 2 weeks Where: [address] [facility] [address] [place] [address] [phone] Follow Up with MARILYN FELTON When Within 1-2 days Why: Please call the office to schedule a follow up appointment Where: [address] [place] [address]- The Following Activity and Diet Have Been Ordered for You Discharge Activity - Ordered -- Lifting Restricted less than 5 pounds, 7 days, 06/04/22 14:11:00 EDT Discharge Diet - Ordered -- No changes were made to your diet during your hospital stay. Please resume your pre hospitalization diet on discharge., 06/04/22 14:11:00 EDT The Following Equipment Has Been Ordered for You No qualifying data available. The Following Treatments Have Been Ordered for You Discharge Labs Discharge Outpatient Labwork - Ordered -- BMP, magnesium, sotalol initiation, follow-up within: 3-5 days, Results Notify to: KARAN LEAHY MD, 06/04/22 14:11:00 EDT Discharge Radiology No qualifying data available. Other Therapies No qualifying data available. Post Acute Orders No qualifying data available. Someone Will Contact You Regarding These Home Health Referrals No home referrals have been ordered for you. No one will call you. Allergies Statins fentaNYL (irregular heart rate) Medications Please ask your primary doctor or pharmacist before taking any other medication not listed, including over the counter drugs, herbal medications, vitamins and or supplements as they may interact with your home medications. What How Much When Instructions Last Dose New apixaban (apixaban 5 mg oral tablet) 1 tab(s) by mouth Two (2) times a day Refills: 3 Pickup at [facility] #[id number] New sotalol (sotalol 80 mg oral tablet) 1 tab(s) by mouth Two (2) times a day Refills: 3 Pickup at [facility] #[id number] Unchanged doxazosin (doxazosin 4 mg oral tablet) 1 tab(s) by mouth Daily at bedtime Unchanged finasteride (finasteride 5 mg oral tablet) 1 tab(s) by mouth Once a day Duration: 30 Days Unchanged multivitamin (Multivitamin) 1 tab(s) by mouth Every day Pharmacy Information [facility] #[id number]: [address] [place], [place] [phone] What How Much When Comments Stop Taking acetaminophen (Tylenol) 600 Milligram by mouth Two (2) times a day Stop Taking aspirin (aspirin 81 mg oral delayed release tablet) by mouth Once a day Stop Taking atenolol (atenolol 50 mg oral tablet) take 1 tablet by mouth once daily Please take this list to your next doctor s visit. Bring all medications you take, including over the counter medications, herbals and other supplements with you to your doctor s visit. Patients and families are reminded to discard old lists and to update any records with all medication providers or retail pharmacies. Medication Leaflets sotalol (oral/injection) (TIMI ta lol) Betapace, Betapace AF, Sorine, Sotalol Hydrochloride AF, Sotylize What is the most important information I should know about sotalol? You should not use sotalol if you have asthma, low potassium, or a serious heart condition such as severe heart failure, long QT syndrome, slow heartbeats that have caused you to faint, 'sick sinus syndrome' or 'AV block' (unless you have a pacemaker). You will receive your first few doses of sotalol in a hospital setting where your heart can be monitored in case the medicine causes serious side effects. What is sotalol? Sotalol is a beta-gina that affects the heart and circulation within the atrium and ventricles (the upper and lower chambers of the heart that allow blood to flow into and out of the heart). Sotalol is used to help keep the heart beating normally in people with certain heart rhythm disorders, such as atrial fibrillation, atrial flutter, ventricular tachycardia, and ventricular fibrillation. Sotalol may also be used for purposes not listed in this medication guide. What should I discuss with my healthcare provider before taking sotalol? You should not use sotalol if you are allergic to it, or if you have: a serious heart condition such as 'sick sinus syndrome' or 'AV block' (unless you have a pacemaker); long QT syndrome (in you or a family member); severe heart failure; slow heartbeats that have caused you to faint; asthma or other breathing disorder; very low levels of potassium in your blood; or (if you take sotalol for atrial fibrillation or atrial flutter) severe kidney disease; Do not give this medicine to a child without medical advice. Tell your doctor if you have ever had: kidney disease (or if you are on dialysis); an electrolyte imbalance (such as low levels of potassium or magnesium in your blood); congestive heart failure; coronary artery disease (hardened arteries); breathing problems such as bronchitis or emphysema; a thyroid disorder; diabetes (using sotalol can make it harder for you to tell when you have low blood sugar); a severe allergic reaction. Tell your doctor if you are . You should not breastfeed while using sotalol. How should I take sotalol? Follow all directions on your prescription label and read all medication guides or instruction sheets. Your doctor may occasionally change your dose. Use the medicine exactly as directed. Sotalol oral is taken by mouth. Sotalol injection is given as an infusion into a vein. A healthcare provider will give you this injection if you are unable to take the medicine by mouth. You will receive your first few doses of sotalol in a hospital setting where your heart can be monitored in case the medicine causes serious side effects. If you already take heart rhythm medication, you may need to stop taking it when you start using sotalol. Carefully follow your doctor's instructions. Measure liquid medicine carefully. Use the dosing syringe provided, or use a medicine dose-measuring device (not a kitchen spoon). Sotalol doses are based on age and body surface area (height and weight) in children. Your child's dose needs may change if the child gains or loses weight, or is still growing. Call your doctor if you are sick with vomiting or diarrhea, or if you have increased thirst, decreased appetite, or are sweating more than usual. You can easily become dehydrated while taking sotalol. This can lead to very low blood pressure, a serious electrolyte imbalance, or kidney failure. You will need frequent medical tests. Your heart function may need to be checked using an electrocardiograph or ECG (sometimes called an EKG). You may also need heart function tests for 1 to 2 weeks after your last dose. Keep using this medicine as directed, even if you feel well. You may need to take sotalol for the rest of your life. Do not skip doses or stop using sotalol without your doctor's advice. Stopping suddenly may make your condition worse. Follow your doctor's instructions about tapering your dose. If you need surgery, tell your surgeon you currently use this medicine. Store at room temperature away from moisture and heat. Do not allow liquid medicine to freeze. Your pharmacist may prepare an oral suspension (liquid) form of sotalol. Keep the suspension at room temperature and throw away suspension any left over after 3 months of use. What happens if I miss a dose? Skip the missed dose and use your next dose at the regular time. Do not use two doses at one time. Try not to miss any doses. Get your prescription refilled before you run out of medicine completely. What happens if I overdose? Seek emergency medical attention or call the Poison Help line at . An overdose of sotalol can be fatal. What should I avoid while taking sotalol? Avoid taking an antacid within 2 hours before or 2 hours after you take sotalol. Some antacids can make it harder for your body to absorb sotalol. What are the possible side effects of sotalol? Get emergency medical help if you have signs of an allergic reaction: hives; difficult breathing; swelling of your face, lips, tongue, or throat. Call your doctor at once if you have: chest pain; fast or pounding heartbeats, fluttering in your chest; sudden dizziness (like you might pass out); slow heartbeats (especially if you feel light-headed); swelling, rapid weight gain; or feeling short of breath. Common side effects may include: slow heartbeats; trouble breathing; dizziness; or feeling weak or tired. This is not a complete list of side effects and others may occur. Call your doctor for medical advice about side effects. You may report side effects to FDA at 4-031-MOG-8729. What other drugs will affect sotalol? Tell your doctor about all your other medicines, especially: other heart medications; blood pressure medication; or insulin or oral diabetes medicine. This list is not complete. Other drugs may affect sotalol, including prescription and shmh-gak-azmtbqp medicines, vitamins, and herbal products. Not all possible drug interactions are listed here. Where can I get more information? Your doctor or pharmacist can provide more information about sotalol. Remember, keep this and all other medicines out of the reach of children, never share your medicines with others, and use this medication only for the indication prescribed. Every effort has been made to ensure that the information provided by [employer]. ('[employer]') is accurate, up-to-date, and complete, but no guarantee is made to that effect. Drug information contained herein may be time sensitive. [employer] information has been compiled for use by healthcare practitioners and consumers in the [place] and therefore [employer] does not warrant that uses outside of the [place] are appropriate, unless specifically indicated otherwise. [employer] drug information does not endorse drugs, diagnose patients or recommend therapy. [employer] drug information is an informational resource designed to assist licensed healthcare practitioners in caring for their patients and/or to serve consumers viewing this service as a supplement to, and not a substitute for, the expertise, skill, knowledge and judgment of healthcare practitioners. The absence of a warning for a given drug or drug combination in no way should be construed to indicate that the drug or drug combination is safe, effective or appropriate for any given patient. [employer] does not assume any responsibility for any aspect of healthcare administered with the aid of information [employer] provides. The information contained herein is not intended to cover all possible uses, directions, precautions, warnings, drug interactions, allergic reactions, or adverse effects. If you have questions about the drugs you are taking, check with your doctor, nurse or pharmacist. Copyright 2908-2768 [employer]. Version: 12.. Revision Date: 02/16/2019. apixaban (a PIX a ban) Brittneyjorge a What is the most important information I should know about apixaban? Apixaban increases your risk of severe or fatal bleeding, especially if you take certain medicines at the same time (including some rmad-ytq-ytfmvit medicines). Tell your doctor about all medicines you have recently used. Call your doctor at once if you have signs of bleeding such as: easy bruising, unusual bleeding, unexpected pain or swelling, feeling very weak or dizzy, bleeding gums, nosebleeds, heavy menstrual bleeding, blood in your urine or stools, coughing up blood or vomit that looks like coffee grounds, or any bleeding that will not stop. Apixaban can cause a very serious blood clot around your spinal cord that can lead to long-term or permanent paralysis. This type of blood clot can occur during a spinal tap or spinal anesthesia (epidural), especially if you have a genetic spinal defect, if you use a spinal catheter, if you've had spinal surgery or repeated spinal taps, or if you use other drugs that can affect blood clotting. Get emergency medical help if you have symptoms of a spinal cord blood clot such as tingling, numbness, or muscle weakness especially in your legs and feet. Do not stop taking apixaban unless your doctor tells you to. Stopping suddenly can increase your risk of blood clot or stroke. What is apixaban? Apixaban is used to lower the risk of stroke caused by a blood clot in people with a heart rhythm disorder called atrial fibrillation. Apixaban is also used after hip or knee replacement surgery to prevent a type of blood clot called deep vein thrombosis (DVT), which can lead to blood clots in the lungs (pulmonary embolism). Apixaban is also used to treat DVT or pulmonary embolism (PE), and to lower your risk of having a repeat DVT or PE. Apixaban may also be used for purposes not listed in this medication guide. What should I discuss with my healthcare provider before taking apixaban? You should not take apixaban if you are allergic to it, or if you have active bleeding from a surgery, injury, or other cause. Apixaban may cause you to bleed more easily, especially if you have a bleeding disorder that is inherited or caused by disease. Tell your doctor if you have an artificial heart valve, or if you have ever had: bleeding problems; antiphospholipid syndrome, especially if you have a triple positive antibody test; or liver or kidney disease. Apixaban can cause a very serious blood clot around your spinal cord if you undergo a spinal tap or receive spinal anesthesia (epidural). This type of blood clot could cause long-term paralysis, and may be more likely to occur if: you have a spinal catheter in place or if a catheter has been recently removed; you have a history of spinal surgery or repeated spinal taps; you have recently had a spinal tap or epidural anesthesia; you take aspirin or other NSAIDs (nonsteroidal anti-inflammatory drugs)--ibuprofen (Advil, Motrin), naproxen (Aleve), diclofenac, indomethacin, meloxicam, and others; or you are using other medicines to treat or prevent blood clots. Taking apixaban may increase the risk of bleeding while you are or during your delivery. Tell your doctor if you are or plan to become . Do not breastfeed. How should I take apixaban? Follow all directions on your prescription label and read all medication guides or instruction sheets. Your doctor may occasionally change your dose. Use the medicine exactly as directed. You may take apixaban with or without food. If you cannot swallow a tablet whole, crush it and mix with water, apple juice, or applesauce. Swallow the mixture right away without chewing. A crushed tablet mixture may also be given through a nasogastric (NG) feeding tube. Read and carefully follow any Instructions for Use provided with your medicine. Apixaban can make it easier for you to bleed, even from a minor injury. Seek medical attention if you have bleeding that will not stop. Tell your doctor if you have a planned surgery or dental work. You may need to stop taking apixaban for a short time. Do not stop taking apixaban unless your doctor tells you to. If you stop taking apixaban for any reason, your doctor may prescribe another medicine to prevent blood clots. Store at room temperature away from moisture and heat. What happens if I miss a dose? Take the missed dose on the same day you remember it. Take your next dose at the regular time and stay on your twice-daily schedule. Do not take two doses at one time. Get your prescription refilled before you run out of medicine completely. What happens if I overdose? Seek emergency medical attention or call the Poison Help line at . What should I avoid while taking apixaban? Avoid activities that may increase your risk of bleeding or injury. Use extra care while shaving or brushing your teeth. What are the possible side effects of apixaban? Get emergency medical help if you have signs of an allergic reaction: hives; chest pain, wheezing, difficult breathing; feeling light-headed; swelling of your face, lips, tongue, or throat. Also seek emergency medical attention if you have symptoms of a spinal blood clot such as tingling, numbness, or muscle weakness especially in your legs and feet. Call your doctor at once if you have: easy bruising, unusual bleeding (nose, mouth, vagina, or rectum), bleeding from wounds or needle injections, any bleeding that will not stop; heavy menstrual bleeding; headache, dizziness, weakness, feeling like you might pass out; urine that looks red, pink, or brown; or black or bloody stools, coughing up blood or vomit that looks like coffee grounds. This is not a complete list of side effects and others may occur. Call your doctor for medical advice about side effects. You may report side effects to FDA at 8-305-QPS-1414. What other drugs will affect apixaban? Sometimes it is not safe to use certain medications at the same time. Some drugs can affect your blood levels of other drugs you take, which may increase side effects or make the medications less effective. Many other drugs (including some mnwi-gld-npxngra medicines) can increase your risk of bleeding or blood clots. Tell your doctor about all medicines you have recently used, especially: any other medicines to treat or prevent blood clots; a blood thinner such as heparin or warfarin (Coumadin, Jantoven); an antidepressant; or aspirin or other NSAID (nonsteroidal anti-inflammatory drug) used assistant terminal manager. This list is not complete and many other drugs may affect apixaban. This includes prescription and vhxn-ebu-nmkofwv medicines, vitamins, and herbal products. Not all possible drug interactions are listed here. Where can I get more information? Your pharmacist can provide more information about apixaban. Remember, keep this and all other medicines out of the reach of children, never share your medicines with others, and use this medication only for the indication prescribed. Every effort has been made to ensure that the information provided by [employer]. [employer]') is accurate, up-to-date, and complete, but no guarantee is made to that effect. Drug information contained herein may be time sensitive. [employer] information has been compiled for use by healthcare practitioners and consumers in the [place] and therefore [employer] does not warrant that uses outside of the [place] are appropriate, unless specifically indicated otherwise. [employer] drug information does not endorse drugs, diagnose patients or recommend therapy. [employer] drug information is an informational resource designed to assist licensed healthcare practitioners in caring for their patients and/or to serve consumers viewing this service as a supplement to, and not a substitute for, the expertise, skill, knowledge and judgment of healthcare practitioners. The absence of a warning for a given drug or drug combination in no way should be construed to indicate that the drug or drug combination is safe, effective or appropriate for any given patient. [employer] does not assume any responsibility for any aspect of healthcare administered with the aid of information [employer] provides. The information contained herein is not intended to cover all possible uses, directions, precautions, warnings, drug interactions, allergic reactions, or adverse effects. If you have questions about the drugs you are taking, check with your doctor, nurse or pharmacist. Copyright 6509-9465 [employer]. Version: 6.01. Revision Date: 04/18/2021. Education Materials Atrial Flutter Atrial flutter is a type of abnormal heart rhythm (arrhythmia). The heart has an electrical system that tells the heart how to beat. In atrial flutter, the signals move rapidly in the top chambers of the heart (the atria). This makes your heart beat very fast. Atrial flutter can come and go, or it can be permanent. If this condition is not treated it can cause serious complications, such as stroke or weakened heart muscle (cardiomyopathy). What are the causes? This condition may be caused by: A heart condition or problem, such as: ? A heart attack. ? Heart failure. ? A heart valve problem. ? Heart surgery. A lung problem, such as: ? A blood clot in the lungs (pulmonary embolism, or PE). ? Chronic obstructive pulmonary disease. Poorly controlled high blood pressure (hypertension). Overactive thyroid (hyperthyroidism). Caffeine. Some decongestant cold medicines. Low levels of minerals called electrolytes in the blood. Cocaine. What increases the risk? You are more likely to develop this condition if: You are an elderly adult. You are a man. You are obese. You have obstructive sleep apnea. You have a family history of atrial flutter. You have diabetes. What are the signs or symptoms? Symptoms of this condition include: A feeling that your heart is pounding or racing (palpitations). Shortness of breath. Chest pain. Feeling light-headed. Dizziness. Fainting. Low blood pressure (hypotension). Fatigue. Sometimes there are no symptoms associated with arrhythmia. How is this diagnosed? This condition may be diagnosed based on: An electrocardiogram (ECG). This is a test that records the electrical signals in the heart. Ambulatory cardiac monitoring. This is a small recording device that is connected by wires to flat, sticky disks (electrodes) that are attached to your chest. An echocardiogram. This is a test that uses sound waves to create pictures of your heart. A transesophageal echocardiogram (KELLI). In this test, a device is placed down your esophagus. This device then uses sounds waves to create even closer pictures of your heart. Stress test. This test records your heartbeat while you exercise and checks to see if the heart muscle is receiving adequate blood supply. How is this treated? This condition may be treated with: Medicines to: ? Make your heart beat more slowly. ? Keep your heart in normal rhythm. ? Prevent a stroke. Cardioversion. This uses medicines or an electrical shock to make the heart beat normally. Ablation. This destroys the heart tissue that is causing the problem. In some cases, your health care provider will treat other underlying conditions. Follow these instructions at home: Medicines Take gydc-hvu-bjqalwp and prescription medicines only as told by your health care provider. ? Make sure you take your medicines exactly as told by your health care provider. ? Do not miss any doses. Do not take any new medicines without talking to your health care provider. Lifestyle Eat heart-healthy foods. Talk with a dietitian to make an eating plan that is right for you. Do not use any products that contain nicotine or tobacco, such as cigarettes and e-cigarettes. If you need help quitting, ask your health care provider. Limit alcohol intake to no more than 1 drink per day for non women and 2 drinks per day for men. One drink equals 12 oz of beer, 5 oz of wine, or 1 oz of hard liquor. Try to reduce any stress. Stress can make your symptoms worse. Get screened for sleep apnea. If you have the condition, work with your health care provider to find a treatment that works for you. Do not use drugs. Avoid excessive caffeine. General instructions Lose weight if your health care provider tells you to do that. Keep all follow-up visits as told by your health care provider. This is important. Contact a health care provider if: Your symptoms get worse. You notice that your palpitations are increasing. Get help right away if: You have any symptoms of a stroke. BE FAST is an easy way to remember the main warning signs of a stroke: ? B - Balance. Signs are dizziness, sudden trouble walking, or loss of balance. ? E - Eyes. Signs are trouble seeing or a sudden change in vision. ? F - Face. Signs are sudden weakness or numbness of the face, or the face or eyelid drooping on one side. ? A - Arms. Signs are weakness or numbness in an arm. This happens suddenly and usually on one side of the body. ? S - Speech. Signs are sudden trouble speaking, slurred speech, or trouble understanding what people say. ? T - Time. Time to call emergency services. Write down what time symptoms started. You have other signs of a stroke, such as: ? A sudden, severe headache with no known cause. ? Nausea or vomiting. ? Seizure. You have additional symptoms, such as: ? Fainting. ? Shortness of breath. ? Pain or pressure in your chest. ? Suddenly feeling nauseous or suddenly vomiting. ? Increased sweating with no known cause. These symptoms may represent a serious problem that is an emergency. Do not wait to see if the symptoms will go away. Get medical help right away. Call your local emergency services (911 in the [place] Do not drive yourself to the hospital. Summary Atrial flutter is an abnormal heart rhythm that can give you symptoms of palpitations, shortness of breath, or fatigue. Atrial flutter is often treated with medicines to keep your heart in a normal rhythm and to prevent a stroke. You should seek immediate help if you cannot catch your breath, have chest pain or pressure, or have weakness, especially on one side of your body. This information is not intended to replace advice given to you by your health care provider. Make sure you discuss any questions you have with your health care provider. Document Released: 12/29/2009 Document Revised: 05/01/2019 Document Reviewed: 05/15/2018 [employer] Patient Education 2020 [employer] Additional Information VACCINATE! IT SAVES LIVES! Members of the community who have not yet received the COVID-19 vaccine and would like to receive it can visit one of [facility] vaccine clinics. There are many vaccine clinic locations within the [facility]. For locations and available times, please visit [email or web address] It is important to note that some COVID mobile vaccine clinics are held outdoors and may be canceled in rainy or stormy conditions. To learn more about pediatric vaccinations (ages 5-11), we invite you to visit the [facility] webpage. [email or web address] To learn more about the COVID-19 vaccine, we invite you to visit the [facility] website for a list of frequently asked questions. [email or web address] [email or web address] [place] [facility] Patient Portal Access Instructions: Stay connected with your healthcare team and access your personal medical information anytime with the [facility] Patient Portal.If you would like a full copy of your medical records, please contact the [facility] Medical Records Department, Saturday through Saturday between 8a.m. and 4:30p.m. Please follow the directions below to access the portal: 1.Access the email account you provided upon registration to the [facility].2.Look for an invitation email from [facility].3.Open the email and access the invitation link: Accept Invitation to [facility].Fill in the required cordova to create your account. Sign into [email or web address] with your username and password that you created in the above steps to stay up to date. You can then view a summary of results, a summary of your visits, and the ability to download your summaries to your computer or send the information securely to a physician. Remember that your healthcare information is confidential, so carefully consider who you will allow to register on the [facility] Patient Portal for access to your information. You can also access the [facility] Patient Portal on the [employer] andrew. Simply click on Health Records under Health Data and then click on the [employer] logo. HOW TO SAFELY DISPOSE OF PRESCRIPTION MEDICATIONS Please use one of the following methods to safely dispose of your unused medications. 1.Use a drug disposal kit: the drug disposal pouch allows you to safely discard your old and unused drugs. Ask your nurse to give you one when you are discharged.2.Visit a local take-back location: Many local pharmacies and police departments have programs that collect old and unwanted prescription drugs. Call your local pharmacy or go to http://Accellion.Power Fingerprinting/4D6Dl3s to find one close to you.3.Make use of household items: Use cat litter or old coffee grounds to dispose medications if other options are not available. Mix your drugs with these household products, seal them in an airtight container and throw it into the garbage. Call [facility]: [phone] to be sure your drugs can be disposed of in this way. Some medicines may require a different approach.4.Never flush your medications down the toilet. IF YOU HAVE BEEN PRESCRIBED AN OPIOID FOR PAIN If you have been prescribed an opioid (such as hydrocodone, oxycodone or morphine), it is critical to understand the possible side effects and risks of opioid pain medications. Even when taken as directed, opioids can have several side effects including: Tolerance, meaning you might need to take more of a medication for the same pain relief. Nausea, vomiting and/or constipation. Sleepiness, dizziness, dry mouth, confusion, depression or itching. Physical dependence, meaning you have withdrawal symptoms when a medication is stopped, can develop within a few days. KNOW YOUR RESPONSIBILITIES It is important to know exactly how much and how often to take the opioid pain medications you are prescribed. Never take opioids in higher amounts or more often than prescribed. Do not combine opioids with alcohol or other drugs that cause drowsiness, such as benzodiazepines, also known as benzos, including diazepam and alprazolam, muscle relaxants or sleep aids. Never sell or share prescription opioids. This is illegal. Store opioids in a secure place and out of reach of others (including children, family, friends and visitors). The last page of this document has been signed and retained as a CHART COPY. Signatures Patient Education Materials Atrial Flutter Medication Leaflets sotalol (oral/injection), apixaban My discharge plan and instructions have been reviewed and explained to me and I,DAVID JACOBSON understand my current condition and have read and understand these discharge instructions. I have received a written copy of the plan/instructions. If I have questions, I am aware that I should contact my doctor. 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 Patient said he got substernal chest pain with dinner went to the emergency department for further work-up. When he arrived in the ED STEMI was alerted for EKG changes showing possible ST elevations in leads II, III, and aVF. Patient underwent urgent cardiac catheterization which showed diffuse mild to moderate coronary artery disease with patent grafts. He was noted to be in atrial flutter which was felt to be cause of pain. He converted spontaneously and was started on sotalol/apixaban after consulting EP. He was d/c home and will get an EKG to reassess QTc in 2 days at the [facility] office. Office contacted to assist patient in coordinating followup. Aspirin stopped now that on apixaban to reduce bleeding risk. He is statin intolerant, may need PSK9i. Will follow up on these issues at cardiology office. ECHO (06/03/22): Summary: 1. Left ventricle: The cavity size is normal. Wall thickness is increased. Concentric Left Ventricular Hypertrophy Systolic function is normal. The estimated ejection fraction is 50-55%. 2. Ventricular septum: Thickness is mildly increased. Septal motion is paradoxical. Allergies Statins fentaNYL (irregular heart rate) Consults Consult to Physician - Ordered -- 06/03/22 7:11:00 EDT, CARA AMAYA MD, Routine, none Physical Exam Vitals and Measurements T: 36.4 C (Oral) TMIN: 36.4 C (Oral) TMAX: 36.7 C (Oral) HR: 74(Monitored) RR: 16 BP: 120/74 SpO2: 97% WT: 83.6 kg Weight Current Weight Dosing Weight: 87.1 kg (06/02/22) Current Weight: 83.6 kg (06/04/22) Constitutional: No acute distress, AOx4 in the right something Head: Normocephalic, nontraumatic Cardiac: Regular rate and rhythm, no murmurs, rubs, gallops. Normal S1, 2. No audible S3 Lungs: CTABL, no rales, wheezes, or rhonchi. No accessory muscle use. No labored breathing. Abdomen: Soft, nontender, nondistended, normoactive bowel tones, no hepatosplenomegaly Musculoskeletal: No lower extremity edema, ROM intact x4 Skin: Warm, dry, no lesions, no erythema Psychiatric: Mood, insight, judgement normal Code Status Code Status - Ordered -- 06/04/22 12:01:00 EDT, Full Code, Constant Order Admission Date 06/02/22 Discharge Date 06/04/22 Patient Instructions Please go to the [facility] office in [facility] in 2 days for an EKG. The office will contact you for more information. Medications New Prescription apixaban (apixaban 5 mg oral tablet)1 tab(s) by mouth two (2) times a day. Refills: 3. sotalol (sotalol 80 mg oral tablet)1 tab(s) by mouth two (2) times a day. Refills: 3. Unchanged doxazosin (doxazosin 4 mg oral tablet)1 tab(s) by mouth daily at bedtime. finasteride (finasteride 5 mg oral tablet)1 tab(s) by mouth once a day for 30 Days. Refills: 0. multivitamin (Multivitamin)1 tab(s) by mouth every day. Discontinued acetaminophen (Tylenol)600 Milligram by mouth two (2) times a day. aspirin (aspirin 81 mg oral delayed release tablet)by mouth once a day. atenolol (atenolol 50 mg oral tablet)take 1 tablet by mouth once daily. Follow Up Follow Up with CINDY GOMEZ When In 2 weeks Where: [address] [facility] [address] [place] [address]- [phone] Business (1) Follow Up with KARAN LEAHY MD When In 2 weeks Where: [address] [facility] [address] [place] [address] [phone] Follow Up with MARILYN FELTON When Within 1-2 days Why: Please call the office to schedule a follow up appointment Where: [address] [facility] [place] [address]- Follow Up Labs/Studies Discharge Labs Discharge Outpatient Labwork - Ordered -- BMP, magnesium, sotalol initiation, follow-up within: 3-5 days, Results Notify to: KARAN LEAHY MD, 06/04/22 14:11:00 EDT Discharge Studies No Follow-up Studies Discharge Diet Discharge Diet - Ordered -- No changes were made to your diet during your hospital stay. Please resume your pre hospitalization diet on discharge., 06/04/22 14:11:00 EDT Discharge Activity Discharge Activity - Ordered -- Lifting Restricted less than 5 pounds, 7 days, 06/04/22 14:11:00 EDT Condition on Discharge Good Discharge Disposition Home Information Provided To Patient Digitally Signed by JOSÉ MORRISON MD on 06/04/2022 02:56 PM [facility] 06-04-2022 Cardiology Progress note Date of Service 06/04/22 Chief Complaint Atrial flutter Subjective Seen and examined. No complaints when seen. Ambulating and eating appropriately. Maintaining sinus rhythm on telemetry. Objective Vitals and Measurements T: 36.4 C (Oral) TMIN: 36.4 C (Oral) TMAX: 36.7 C (Oral) HR: 74(Monitored) RR: 16 BP: 120/74 SpO2: 97% WT: 83.6 kg Intake and Output 7AM Yesterday to 7AM Today Intake and Output (Last 24 hours) Intake Oral Intake 440.00 Output Urine Voided 600.00 Total Summary Total Intake 440.00 Total Output 600.00 Fluid Balance -160.00 Physical Exam Constitutional: no distress, appears stated age ENT: No thyroid masses Respiratory: Clear to auscultation, no adventitious sounds Cardiovascular: RRR, S1 and S2, no murmurs, JVP 8-10 cm H2O, no pedal edema GI: Soft, nondistended, bowel sounds present Musculoskeletal: no deformity Skin: Warm to touch, dry Neurological: Alert and oriented Weight Current Weight Dosing Weight: 87.1 kg (06/02/22) Current Weight: 83.6 kg (06/04/22) Medications Medications (11) Active Scheduled: (7) apixaban 5 mg tablet 5 mg 1 tab(s), Oral, BID aspirin 81 mg EC 81 mg 1 tab(s), Oral, qDayM doxazosin 4 mg Tablet 4 mg 1 tab(s), Oral, qHS finasteride 5 mg tablet 5 mg 1 tab(s), Oral, qDay metoprolol succinate 50 mg ER tablet 50 mg 1 tab(s), Oral, BID multivitamin tablet 1 tab(s), Oral, Daily No metformin for 48 hrs post contrast 1 EA, Miscellaneous, Unscheduled Continuous: (0) PRN: (4) acetaminophen 325 mg Tablet 650 mg 2 tab(s), Oral, q4h albuterol - ipratropium 2.5 mg-0.5 mg/3 mL Inhal Fouzia UD 3 mL, Inhalation, q4hRT melatonin 3 mg tablet 3 mg 1 tab(s), Oral, qHS metoprolol 1 mg/mL (5mL) vial 5 mg 5 mL, IV Push, q6h Lab Results 06/04 05:01 WBC: 6.6 Hgb: 13.9 Hct: 40.0 Platelet: 202 Neutrophil %: 67.5 Glucose Level: 111 Sodium Level: 139 Potassium Level: 4.8 BUN: 27.0 H Creatinine Lvl (s): 1.35 06/03 09:51 Protime: 13.8 PT International Ratio: 1.2 06/03 04:55 WBC: 7.2 Hgb: 14.5 Hct: 42.1 Platelet: 200 Neutrophil %: 62.0 Glucose Level: 109 Sodium Level: 140 Potassium Level: 4.3 BUN: 19.0 Creatinine Lvl (s): 1.24 EKG EKG - Completed -- 06/02/22 18:47:00 EDT EKG - Completed -- 06/03/22 8:39:00 EDT EKG - Completed -- 06/03/22 20:54:00 EDT Assessment/Plan Orders: Transfer/Change in Level of Care Assessment: STEMI alert/unchanged angiographic CAD CAD with CABG and suspected mitral valve repair (records not available for review) Atypical atrial flutter (suspect prior atriotomy from cardiac surgery), [id number] VASC 3 Chronic right bundle branch block, LVH LVEF 50-55%, concentric LVH HTN CV: BKD Plan: -Patient converted to normal sinus rhythm from atypical atrial flutter on Toprol-XL 50 mg twice daily -Recommend transitioning to sotalol 80 mg twice daily to prevent further recurrence of atrial flutter along with anticoagulation for stroke risk reduction -Check ECG prior to discharge (QT 415 ms, QRS 147 MS) and 2 days later as an outpatient -Can follow-up with EP in 2 to 3 weeks Tsering Oates, PGY5 Business Operations Director pager [phone], Cortext Digitally Signed by TSERING OATES MD on 06/04/2022 04:40 PM [facility] 06-04-2022 Note Discharge Instructions Thank you for allowing [facility] to assist you with your healthcare needs. The following is important discharge information regarding your hospital visit. Your Care Team MARILYN FELTON APRN-DREW What to do next Instructions From Your Doctor Please go to the [facility] office in [facility] in 2 days for an EKG. The office will contact you for more information. Scheduled Follow-Up Appointments Appointment Type When With Where Contact InformationPC OV 06/27/2022 08:30 AM EDT ANDRES[facility] [address] [place] [address] Follow Up Appointments Follow Up with KARAN LEAHY MD When In 2 weeks Where: [address] [facility] [address] [facility] [place] [address]- [phone] Follow Up with MARILYN FELTON When Within 1-2 days Why: Please call the office to schedule a follow up appointment Where: [address] [facility] [place] [address]- The Following Activity and Diet Have Been Ordered for You Discharge Activity - Ordered -- Lifting Restricted less than 5 pounds, 7 days, 06/04/22 14:11:00 EDT Discharge Diet - Ordered -- No changes were made to your diet during your hospital stay. Please resume your pre hospitalization diet on discharge., 06/04/22 14:11:00 EDT The Following Equipment Has Been Ordered for You No qualifying data available. The Following Treatments Have Been Ordered for You Discharge Labs Discharge Outpatient Labwork - Ordered -- BMP, magnesium, sotalol initiation, follow-up within: 3-5 days, Results Notify to: KARAN LEAHY MD, 06/04/22 14:11:00 EDT Discharge Radiology No qualifying data available. Other Therapies No qualifying data available. Post Acute Orders No qualifying data available. Someone Will Contact You Regarding These Home Health Referrals No home referrals have been ordered for you. No one will call you. Allergies Statins fentaNYL (irregular heart rate) Medications Please ask your primary doctor or pharmacist before taking any other medication not listed, including over the counter drugs, herbal medications, vitamins and or supplements as they may interact with your home medications. What How Much When Instructions Last Dose New apixaban (apixaban 5 mg oral tablet) 1 tab(s) by mouth Two (2) times a day Refills: 3 Pickup at [id number] New sotalol (sotalol 80 mg oral tablet) 1 tab(s) by mouth Two (2) times a day Refills: 3 Pickup at [id number] Unchanged doxazosin (doxazosin 4 mg oral tablet) 1 tab(s) by mouth Daily at bedtime Unchanged finasteride (finasteride 5 mg oral tablet) 1 tab(s) by mouth Once a day Duration: 30 Days Unchanged multivitamin (Multivitamin) 1 tab(s) by mouth Every day Pharmacy Information [facility] #[id number]: [address] [place], [place] [id number] [phone] What How Much When Comments Stop Taking acetaminophen (Tylenol) 600 Milligram by mouth Two (2) times a day Stop Taking aspirin (aspirin 81 mg oral delayed release tablet) by mouth Once a day Stop Taking atenolol (atenolol 50 mg oral tablet) take 1 tablet by mouth once daily Please take this list to your next doctor s visit. Bring all medications you take, including over the counter medications, herbals and other supplements with you to your doctor s visit. Patients and families are reminded to discard old lists and to update any records with all medication providers or retail pharmacies. Medication Leaflets sotalol (oral/injection) (TIMI ta lol) Betapace, Betapace AF, Sorine, Sotalol Hydrochloride AF, Sotylize What is the most important information I should know about sotalol? You should not use sotalol if you have asthma, low potassium, or a serious heart condition such as severe heart failure, long QT syndrome, slow heartbeats that have caused you to faint, 'sick sinus syndrome' or 'AV block' (unless you have a pacemaker). You will receive your first few doses of sotalol in a hospital setting where your heart can be monitored in case the medicine causes serious side effects. What is sotalol? Sotalol is a beta-gina that affects the heart and circulation within the atrium and ventricles (the upper and lower chambers of the heart that allow blood to flow into and out of the heart). Sotalol is used to help keep the heart beating normally in people with certain heart rhythm disorders, such as atrial fibrillation, atrial flutter, ventricular tachycardia, and ventricular fibrillation. Sotalol may also be used for purposes not listed in this medication guide. What should I discuss with my healthcare provider before taking sotalol? You should not use sotalol if you are allergic to it, or if you have: a serious heart condition such as 'sick sinus syndrome' or 'AV block' (unless you have a pacemaker); long QT syndrome (in you or a family member); severe heart failure; slow heartbeats that have caused you to faint; asthma or other breathing disorder; very low levels of potassium in your blood; or (if you take sotalol for atrial fibrillation or atrial flutter) severe kidney disease; Do not give this medicine to a child without medical advice. Tell your doctor if you have ever had: kidney disease (or if you are on dialysis); an electrolyte imbalance (such as low levels of potassium or magnesium in your blood); congestive heart failure; coronary artery disease (hardened arteries); breathing problems such as bronchitis or emphysema; a thyroid disorder; diabetes (using sotalol can make it harder for you to tell when you have low blood sugar); a severe allergic reaction. Tell your doctor if you are . You should not breastfeed while using sotalol. How should I take sotalol? Follow all directions on your prescription label and read all medication guides or instruction sheets. Your doctor may occasionally change your dose. Use the medicine exactly as directed. Sotalol oral is taken by mouth. Sotalol injection is given as an infusion into a vein. A healthcare provider will give you this injection if you are unable to take the medicine by mouth. You will receive your first few doses of sotalol in a hospital setting where your heart can be monitored in case the medicine causes serious side effects. If you already take heart rhythm medication, you may need to stop taking it when you start using sotalol. Carefully follow your doctor's instructions. Measure liquid medicine carefully. Use the dosing syringe provided, or use a medicine dose-measuring device (not a kitchen spoon). Sotalol doses are based on age and body surface area (height and weight) in children. Your child's dose needs may change if the child gains or loses weight, or is still growing. Call your doctor if you are sick with vomiting or diarrhea, or if you have increased thirst, decreased appetite, or are sweating more than usual. You can easily become dehydrated while taking sotalol. This can lead to very low blood pressure, a serious electrolyte imbalance, or kidney failure. You will need frequent medical tests. Your heart function may need to be checked using an electrocardiograph or ECG (sometimes called an EKG). You may also need heart function tests for 1 to 2 weeks after your last dose. Keep using this medicine as directed, even if you feel well. You may need to take sotalol for the rest of your life. Do not skip doses or stop using sotalol without your doctor's advice. Stopping suddenly may make your condition worse. Follow your doctor's instructions about tapering your dose. If you need surgery, tell your surgeon you currently use this medicine. Store at room temperature away from moisture and heat. Do not allow liquid medicine to freeze. Your pharmacist may prepare an oral suspension (liquid) form of sotalol. Keep the suspension at room temperature and throw away suspension any left over after 3 months of use. What happens if I miss a dose? Skip the missed dose and use your next dose at the regular time. Do not use two doses at one time. Try not to miss any doses. Get your prescription refilled before you run out of medicine completely. What happens if I overdose? Seek emergency medical attention or call the Poison Help line at . An overdose of sotalol can be fatal. What should I avoid while taking sotalol? Avoid taking an antacid within 2 hours before or 2 hours after you take sotalol. Some antacids can make it harder for your body to absorb sotalol. What are the possible side effects of sotalol? Get emergency medical help if you have signs of an allergic reaction: hives; difficult breathing; swelling of your face, lips, tongue, or throat. Call your doctor at once if you have: chest pain; fast or pounding heartbeats, fluttering in your chest; sudden dizziness (like you might pass out); slow heartbeats (especially if you feel light-headed); swelling, rapid weight gain; or feeling short of breath. Common side effects may include: slow heartbeats; trouble breathing; dizziness; or feeling weak or tired. This is not a complete list of side effects and others may occur. Call your doctor for medical advice about side effects. You may report side effects to FDA at 2-467-JDZ-7063. What other drugs will affect sotalol? Tell your doctor about all your other medicines, especially: other heart medications; blood pressure medication; or insulin or oral diabetes medicine. This list is not complete. Other drugs may affect sotalol, including prescription and abcs-wqk-ojdzkxh medicines, vitamins, and herbal products. Not all possible drug interactions are listed here. Where can I get more information? Your doctor or pharmacist can provide more information about sotalol. Remember, keep this and all other medicines out of the reach of children, never share your medicines with others, and use this medication only for the indication prescribed. Every effort has been made to ensure that the information provided by [employer]. ('[employer]') is accurate, up-to-date, and complete, but no guarantee is made to that effect. Drug information contained herein may be time sensitive. [employer] information has been compiled for use by healthcare practitioners and consumers in the [place] and therefore [employer] does not warrant that uses outside of the [place] are appropriate, unless specifically indicated otherwise. [employer] drug information does not endorse drugs, diagnose patients or recommend therapy. [employer] drug information is an informational resource designed to assist licensed healthcare practitioners in caring for their patients and/or to serve consumers viewing this service as a supplement to, and not a substitute for, the expertise, skill, knowledge and judgment of healthcare practitioners. The absence of a warning for a given drug or drug combination in no way should be construed to indicate that the drug or drug combination is safe, effective or appropriate for any given patient. [employer] does not assume any responsibility for any aspect of healthcare administered with the aid of information [employer] provides. The information contained herein is not intended to cover all possible uses, directions, precautions, warnings, drug interactions, allergic reactions, or adverse effects. If you have questions about the drugs you are taking, check with your doctor, nurse or pharmacist. Copyright 5201-5759 [employer]. Version: 12.. Revision Date: 02/16/2019. apixaban (a PIX a ban) Hernandez What is the most important information I should know about apixaban? Apixaban increases your risk of severe or fatal bleeding, especially if you take certain medicines at the same time (including some dxlp-ozl-frvblqx medicines). Tell your doctor about all medicines you have recently used. Call your doctor at once if you have signs of bleeding such as: easy bruising, unusual bleeding, unexpected pain or swelling, feeling very weak or dizzy, bleeding gums, nosebleeds, heavy menstrual bleeding, blood in your urine or stools, coughing up blood or vomit that looks like coffee grounds, or any bleeding that will not stop. Apixaban can cause a very serious blood clot around your spinal cord that can lead to long-term or permanent paralysis. This type of blood clot can occur during a spinal tap or spinal anesthesia (epidural), especially if you have a genetic spinal defect, if you use a spinal catheter, if you've had spinal surgery or repeated spinal taps, or if you use other drugs that can affect blood clotting. Get emergency medical help if you have symptoms of a spinal cord blood clot such as tingling, numbness, or muscle weakness especially in your legs and feet. Do not stop taking apixaban unless your doctor tells you to. Stopping suddenly can increase your risk of blood clot or stroke. What is apixaban? Apixaban is used to lower the risk of stroke caused by a blood clot in people with a heart rhythm disorder called atrial fibrillation. Apixaban is also used after hip or knee replacement surgery to prevent a type of blood clot called deep vein thrombosis (DVT), which can lead to blood clots in the lungs (pulmonary embolism). Apixaban is also used to treat DVT or pulmonary embolism (PE), and to lower your risk of having a repeat DVT or PE. Apixaban may also be used for purposes not listed in this medication guide. What should I discuss with my healthcare provider before taking apixaban? You should not take apixaban if you are allergic to it, or if you have active bleeding from a surgery, injury, or other cause. Apixaban may cause you to bleed more easily, especially if you have a bleeding disorder that is inherited or caused by disease. Tell your doctor if you have an artificial heart valve, or if you have ever had: bleeding problems; antiphospholipid syndrome, especially if you have a triple positive antibody test; or liver or kidney disease. Apixaban can cause a very serious blood clot around your spinal cord if you undergo a spinal tap or receive spinal anesthesia (epidural). This type of blood clot could cause long-term paralysis, and may be more likely to occur if: you have a spinal catheter in place or if a catheter has been recently removed; you have a history of spinal surgery or repeated spinal taps; you have recently had a spinal tap or epidural anesthesia; you take aspirin or other NSAIDs (nonsteroidal anti-inflammatory drugs)--ibuprofen (Advil, Motrin), naproxen (Aleve), diclofenac, indomethacin, meloxicam, and others; or you are using other medicines to treat or prevent blood clots. Taking apixaban may increase the risk of bleeding while you are or during your delivery. Tell your doctor if you are or plan to become . Do not breastfeed. How should I take apixaban? Follow all directions on your prescription label and read all medication guides or instruction sheets. Your doctor may occasionally change your dose. Use the medicine exactly as directed. You may take apixaban with or without food. If you cannot swallow a tablet whole, crush it and mix with water, apple juice, or applesauce. Swallow the mixture right away without chewing. A crushed tablet mixture may also be given through a nasogastric (NG) feeding tube. Read and carefully follow any Instructions for Use provided with your medicine. Apixaban can make it easier for you to bleed, even from a minor injury. Seek medical attention if you have bleeding that will not stop. Tell your doctor if you have a planned surgery or dental work. You may need to stop taking apixaban for a short time. Do not stop taking apixaban unless your doctor tells you to. If you stop taking apixaban for any reason, your doctor may prescribe another medicine to prevent blood clots. Store at room temperature away from moisture and heat. What happens if I miss a dose? Take the missed dose on the same day you remember it. Take your next dose at the regular time and stay on your twice-daily schedule. Do not take two doses at one time. Get your prescription refilled before you run out of medicine completely. What happens if I overdose? Seek emergency medical attention or call the Poison Help line at . What should I avoid while taking apixaban? Avoid activities that may increase your risk of bleeding or injury. Use extra care while shaving or brushing your teeth. What are the possible side effects of apixaban? Get emergency medical help if you have signs of an allergic reaction: hives; chest pain, wheezing, difficult breathing; feeling light-headed; swelling of your face, lips, tongue, or throat. Also seek emergency medical attention if you have symptoms of a spinal blood clot such as tingling, numbness, or muscle weakness especially in your legs and feet. Call your doctor at once if you have: easy bruising, unusual bleeding (nose, mouth, vagina, or rectum), bleeding from wounds or needle injections, any bleeding that will not stop; heavy menstrual bleeding; headache, dizziness, weakness, feeling like you might pass out; urine that looks red, pink, or brown; or black or bloody stools, coughing up blood or vomit that looks like coffee grounds. This is not a complete list of side effects and others may occur. Call your doctor for medical advice about side effects. You may report side effects to FDA at 9-034-PYB-9944. What other drugs will affect apixaban? Sometimes it is not safe to use certain medications at the same time. Some drugs can affect your blood levels of other drugs you take, which may increase side effects or make the medications less effective. Many other drugs (including some pezt-tbi-eagjpja medicines) can increase your risk of bleeding or blood clots. Tell your doctor about all medicines you have recently used, especially: any other medicines to treat or prevent blood clots; a blood thinner such as heparin or warfarin (Coumadin, Jantoven); an antidepressant; or aspirin or other NSAID (nonsteroidal anti-inflammatory drug) used half-way. This list is not complete and many other drugs may affect apixaban. This includes prescription and tcqs-pyx-wmkgsvs medicines, vitamins, and herbal products. Not all possible drug interactions are listed here. Where can I get more information? Your pharmacist can provide more information about apixaban. Remember, keep this and all other medicines out of the reach of children, never share your medicines with others, and use this medication only for the indication prescribed. Every effort has been made to ensure that the information provided by [employer]. ('[employer]') is accurate, up-to-date, and complete, but no guarantee is made to that effect. Drug information contained herein may be time sensitive. [employer] information has been compiled for use by healthcare practitioners and consumers in the [place] and therefore [employer] does not warrant that uses outside of the [place] are appropriate, unless specifically indicated otherwise. [employer] drug information does not endorse drugs, diagnose patients or recommend therapy. [employer] drug information is an informational resource designed to assist licensed healthcare practitioners in caring for their patients and/or to serve consumers viewing this service as a supplement to, and not a substitute for, the expertise, skill, knowledge and judgment of healthcare practitioners. The absence of a warning for a given drug or drug combination in no way should be construed to indicate that the drug or drug combination is safe, effective or appropriate for any given patient. [facility] does not assume any responsibility for any aspect of healthcare administered with the aid of information [facility] provides. The information contained herein is not intended to cover all possible uses, directions, precautions, warnings, drug interactions, allergic reactions, or adverse effects. If you have questions about the drugs you are taking, check with your doctor, nurse or pharmacist. Copyright 3117-[address] [address] [facility] [employer]. Version: 6.01. Revision Date: 04/18/2021. Education Materials Atrial Flutter Atrial flutter is a type of abnormal heart rhythm (arrhythmia). The heart has an electrical system that tells the heart how to beat. In atrial flutter, the signals move rapidly in the top chambers of the heart (the atria). This makes your heart beat very fast. Atrial flutter can come and go, or it can be permanent. If this condition is not treated it can cause serious complications, such as stroke or weakened heart muscle (cardiomyopathy). What are the causes? This condition may be caused by: A heart condition or problem, such as: ? A heart attack. ? Heart failure. ? A heart valve problem. ? Heart surgery. A lung problem, such as: ? A blood clot in the lungs (pulmonary embolism, or PE). ? Chronic obstructive pulmonary disease. Poorly controlled high blood pressure (hypertension). Overactive thyroid (hyperthyroidism). Caffeine. Some decongestant cold medicines. Low levels of minerals called electrolytes in the blood. Cocaine. What increases the risk? You are more likely to develop this condition if: You are an elderly adult. You are a man. You are obese. You have obstructive sleep apnea. You have a family history of atrial flutter. You have diabetes. What are the signs or symptoms? Symptoms of this condition include: A feeling that your heart is pounding or racing (palpitations). Shortness of breath. Chest pain. Feeling light-headed. Dizziness. Fainting. Low blood pressure (hypotension). Fatigue. Sometimes there are no symptoms associated with arrhythmia. How is this diagnosed? This condition may be diagnosed based on: An electrocardiogram (ECG). This is a test that records the electrical signals in the heart. Ambulatory cardiac monitoring. This is a small recording device that is connected by wires to flat, sticky disks (electrodes) that are attached to your chest. An echocardiogram. This is a test that uses sound waves to create pictures of your heart. A transesophageal echocardiogram (KELLI). In this test, a device is placed down your esophagus. This device then uses sounds waves to create even closer pictures of your heart. Stress test. This test records your heartbeat while you exercise and checks to see if the heart muscle is receiving adequate blood supply. How is this treated? This condition may be treated with: Medicines to: ? Make your heart beat more slowly. ? Keep your heart in normal rhythm. ? Prevent a stroke. Cardioversion. This uses medicines or an electrical shock to make the heart beat normally. Ablation. This destroys the heart tissue that is causing the problem. In some cases, your health care provider will treat other underlying conditions. Follow these instructions at home: Medicines Take hiso-wdz-eazpmzb and prescription medicines only as told by your health care provider. ? Make sure you take your medicines exactly as told by your health care provider. ? Do not miss any doses. Do not take any new medicines without talking to your health care provider. Lifestyle Eat heart-healthy foods. Talk with a dietitian to make an eating plan that is right for you. Do not use any products that contain nicotine or tobacco, such as cigarettes and e-cigarettes. If you need help quitting, ask your health care provider. Limit alcohol intake to no more than 1 drink per day for non women and 2 drinks per day for men. One drink equals 12 oz of beer, 5 oz of wine, or 1 oz of hard liquor. Try to reduce any stress. Stress can make your symptoms worse. Get screened for sleep apnea. If you have the condition, work with your health care provider to find a treatment that works for you. Do not use drugs. Avoid excessive caffeine. General instructions Lose weight if your health care provider tells you to do that. Keep all follow-up visits as told by your health care provider. This is important. Contact a health care provider if: Your symptoms get worse. You notice that your palpitations are increasing. Get help right away if: You have any symptoms of a stroke. BE FAST is an easy way to remember the main warning signs of a stroke: ? B - Balance. Signs are dizziness, sudden trouble walking, or loss of balance. ? E - Eyes. Signs are trouble seeing or a sudden change in vision. ? F - Face. Signs are sudden weakness or numbness of the face, or the face or eyelid drooping on one side. ? A - Arms. Signs are weakness or numbness in an arm. This happens suddenly and usually on one side of the body. ? S - Speech. Signs are sudden trouble speaking, slurred speech, or trouble understanding what people say. ? T - Time. Time to call emergency services. Write down what time symptoms started. You have other signs of a stroke, such as: ? A sudden, severe headache with no known cause. ? Nausea or vomiting. ? Seizure. You have additional symptoms, such as: ? Fainting. ? Shortness of breath. ? Pain or pressure in your chest. ? Suddenly feeling nauseous or suddenly vomiting. ? Increased sweating with no known cause. These symptoms may represent a serious problem that is an emergency. Do not wait to see if the symptoms will go away. Get medical help right away. Call your local emergency services (911 in the [place] Do not drive yourself to the hospital. Summary Atrial flutter is an abnormal heart rhythm that can give you symptoms of palpitations, shortness of breath, or fatigue. Atrial flutter is often treated with medicines to keep your heart in a normal rhythm and to prevent a stroke. You should seek immediate help if you cannot catch your breath, have chest pain or pressure, or have weakness, especially on one side of your body. This information is not intended to replace advice given to you by your health care provider. Make sure you discuss any questions you have with your health care provider. Document Released: 12/29/2009 Document Revised: 05/01/2019 Document Reviewed: 05/15/2018 Elsevier Patient Education 2020 [employer] Additional Information VACCINATE! IT SAVES LIVES! Members of the community who have not yet received the COVID-19 vaccine and would like to receive it can visit one of [facility] vaccine clinics. There are many vaccine clinic locations within the [facility]. For locations and available times, please visit [email or web address] It is important to note that some COVID mobile vaccine clinics are held outdoors and may be canceled in rainy or stormy conditions. To learn more about pediatric vaccinations (ages 5-11), we invite you to visit the [facility] webpage. [email or web address] To learn more about the COVID-19 vaccine, we invite you to visit the [facility] website for a list of frequently asked questions. [email or web address] [place] [facility] Patient Portal Access Instructions: Stay connected with your healthcare team and access your personal medical information anytime with the [facility] Patient Portal.If you would like a full copy of your medical records, please contact the [facility] Medical Records Department, Saturday through Saturday between 8a.m. and 4:30p.m. Please follow the directions below to access the portal: 1.Access the email account you provided upon registration to the [facility].2.Look for an invitation email from [facility].3.Open the email and access the invitation link: Accept Invitation to [facility].Fill in the required cordova to create your account. Sign into [email or web address] with your username and password that you created in the above steps to stay up to date. You can then view a summary of results, a summary of your visits, and the ability to download your summaries to your computer or send the information securely to a physician. Remember that your healthcare information is confidential, so carefully consider who you will allow to register on the [facility] Patient Portal for access to your information. You can also access the [facility] Patient Portal on the [employer]. Simply click on Health Records under Health Data and then click on the [employer] logo. HOW TO SAFELY DISPOSE OF PRESCRIPTION MEDICATIONS Please use one of the following methods to safely dispose of your unused medications. 1.Use a drug disposal kit: the drug disposal pouch allows you to safely discard your old and unused drugs. Ask your nurse to give you one when you are discharged.2.Visit a local take-back location: Many local pharmacies and police departments have programs that collect old and unwanted prescription drugs. Call your local pharmacy or go to http://Accellion.Power Fingerprinting/9P9Vi3p to find one close to you.3.Make use of household items: Use cat litter or old coffee grounds to dispose medications if other options are not available. Mix your drugs with these household products, seal them in an airtight container and throw it into the garbage. Call [facility]: [phone] to be sure your drugs can be disposed of in this way. Some medicines may require a different approach.4.Never flush your medications down the toilet. IF YOU HAVE BEEN PRESCRIBED AN OPIOID FOR PAIN If you have been prescribed an opioid (such as hydrocodone, oxycodone or morphine), it is critical to understand the possible side effects and risks of opioid pain medications. Even when taken as directed, opioids can have several side effects including: Tolerance, meaning you might need to take more of a medication for the same pain relief. Nausea, vomiting and/or constipation. Sleepiness, dizziness, dry mouth, confusion, depression or itching. Physical dependence, meaning you have withdrawal symptoms when a medication is stopped, can develop within a few days. KNOW YOUR RESPONSIBILITIES It is important to know exactly how much and how often to take the opioid pain medications you are prescribed. Never take opioids in higher amounts or more often than prescribed. Do not combine opioids with alcohol or other drugs that cause drowsiness, such as benzodiazepines, also known as benzos, including diazepam and alprazolam, muscle relaxants or sleep aids. Never sell or share prescription opioids. This is illegal. Store opioids in a secure place and out of reach of others (including children, family, friends and visitors). The last page of this document has been signed and retained as a CHART COPY. Signatures Patient Education Materials Atrial Flutter Medication Leaflets sotalol (oral/injection), apixaban My discharge plan and instructions have been reviewed and explained to me and I,DAVID JACOBSON understand my current condition and have read and understand these discharge instructions. I have received a written copy of the plan/instructions. If I have questions, I am aware that I should contact my doctor. 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 ECHO (06/03/22): Summary: 1. Left ventricle: The cavity size is normal. Wall thickness is increased. Concentric Left Ventricular Hypertrophy Systolic function is normal. The estimated ejection fraction is 50-55%. 2. Ventricular septum: Thickness is mildly increased. Septal motion is paradoxical. Objective Vitals and Measurements T: 36.4 C (Oral) TMIN: 36.4 C (Oral) TMAX: 36.7 C (Oral) HR: 74(Monitored) RR: 16 BP: 120/74 SpO2: 97% WT: 83.6 kg Intake and Output 7AM Yesterday to 7AM Today Intake and Output (Last 24 hours) Intake Administration Information 35.00 Oral Intake 560.00 Output Urine Voided 600.00 Stool Count 0.00 Total Summary Total Intake 595.00 Total Output 600.00 Fluid Balance -5.00 Physical Exam Constitutional: No acute distress, AOx4 in the right something Head: Normocephalic, nontraumatic Cardiac: Regular rate and rhythm, no murmurs, rubs, gallops. Normal S1, 2. No audible S3 Lungs: CTABL, no rales, wheezes, or rhonchi. No accessory muscle use. No labored breathing. Abdomen: Soft, nontender, nondistended, normoactive bowel tones, no hepatosplenomegaly Musculoskeletal: No lower extremity edema, ROM intact x4 Skin: Warm, dry, no lesions, no erythema Psychiatric: Mood, insight, judgement normal Weight Current Weight Dosing Weight: 87.1 kg (06/02/22) Current Weight: 83.6 kg (06/04/22) Medications Medications (12) Active Scheduled: (6) aspirin 81 mg EC 81 mg 1 tab(s), Oral, qDayM doxazosin 4 mg Tablet 4 mg 1 tab(s), Oral, qHS finasteride 5 mg tablet 5 mg 1 tab(s), Oral, qDay metoprolol succinate 50 mg ER tablet 50 mg 1 tab(s), Oral, BID multivitamin tablet 1 tab(s), Oral, Daily No metformin for 48 hrs post contrast 1 EA, Miscellaneous, Unscheduled Continuous: (1) heparin 25,000 unit(s) + Dextrose 5% Premix Diluent 250 mL 250 mL, Intravenous, 10 mL/hr PRN: (5) acetaminophen 325 mg Tablet 650 mg 2 tab(s), Oral, q4h albuterol - ipratropium 2.5 mg-0.5 mg/3 mL Inhal Fouzia UD 3 mL, Inhalation, q4hRT heparin 5,000 units/mL (1 mL) vial 4,000 unit(s) 0.8 mL, IV Push, q6h melatonin 3 mg tablet 3 mg 1 tab(s), Oral, qHS metoprolol 1 mg/mL (5mL) vial 5 mg 5 mL, IV Push, q6h Lab Results 06/04 05:01 WBC: 6.6 Hgb: 13.9 Hct: 40.0 Platelet: 202 Neutrophil %: 67.5 Glucose Level: 111 Sodium Level: 139 Potassium Level: 4.8 BUN: 27.0 H Creatinine Lvl (s): 1.35 06/03 09:51 Protime: 13.8 PT International Ratio: 1.2 06/03 04:55 WBC: 7.2 Hgb: 14.5 Hct: 42.1 Platelet: 200 Neutrophil %: 62.0 Glucose Level: 109 Sodium Level: 140 Potassium Level: 4.3 BUN: 19.0 Creatinine Lvl (s): 1.24 EKG EKG - Completed -- 06/02/22 18:47:00 EDT EKG - Completed -- 06/03/22 8:39:00 EDT EKG - Completed -- 06/03/22 20:54:00 EDT Assessment/Plan 1. New onset atrial flutter 2. CAD with prior 2v CABG in 2014 (CHURCHILL-LAD, SVG-RI) 3. Comorbidities: HTN, HLD, PVD, CAMILO on CPAP Plan: Patient presented with chest pain and went for heart cath, grafts patent. [place] to be 2/2 atrial flutter. EP consulted, planned for cardioversion but he flipped to NSR. Chest pain free, on heparin. - continue metoprolol, appreciate EP input for possible use of sotalol - switch heparin to apixaban - ASA 81 mg qday - statin intolerant, discuss PSK9i as outpatient Plan discussed with attending physician. Digitally Signed by JOSÉ MORRISON MD on 06/04/2022 02:51 PM [facility] 06-04-2022 History and physical note Date of Service 06/02/22 Chief Complaint CP HPI: 72-year-old male with past medical history of hypertension, hyperlipidemia CAD status post CABG in 2014 with CHURCHILL to the LAD and SVG to the ramus, CAMILO on CPAP, carotid artery stenosis, and peripheral vascular disease went into [place] emergency department complaining of chest pain. Patient said he got substernal chest pain with dinner went to the emergency department for further work-up. When he arrived in the ED STEMI was alerted for EKG changes showing possible ST elevations in leads II, III, and aVF. Patient underwent urgent cardiac catheterization which showed diffuse mild to moderate coronary artery disease with patent grafts. Patient will be admitted to cardiology service for work-up of chest pain and atrial tachycardia/flutter. PMH: As documented in chart PSH: As documented in chart FH: As documented in chart SH: As documented in chart Allergies: As documented in chart Review of Systems General: negative for weight change, fevers/night sweats/chills, fatigue/weakness Skin: negative for skin changes HEENT: negative for headache, visual changes, hearing loss, rhinorrhea/congestion/epistaxis, bleeding gums, hoarseness/sore throat Breasts: negative for skin changes, discharge Cardiac: Angina negative for murmurs, palpitations, HANCOCK, orthopnea, PND, edema Pulmonary: negative for SOB, wheezing, cough, sputum/hemoptysis, PNA, asthma/bronchitis/COPD GI: negative for N/V, change in appetite, dysphagia, change in BM, stool color, hematemesis/melena/hematochezia, constipation/diarrhea : negative for polydipsia, polyuria, hematuria, dysuria, nocturia MSK: negative for muscle weakness, joint pain/stiffness, redness/swelling Heme: negative for anemia, easy bruising Neurologic: negative for loss of sensation/numbness/tingling, weakness/paralysis Physical Exam Vitals and Measurements T: 36.4 C (Oral) HR: 116(Monitored) RR: 17 BP: 138/76 SpO2: 97% HT: 175.3 cm WT: 87.1 kg BMI: 28.34 Weight Dosing Weight: 87.1 kg (06/02/22) General: AAOX3, NAD HEENT: Anicteric sclera, MMM Neck: Trachea midline, no JVD appreciated CVS: Irregular heart rate, regular rhythm, normal S1/S2, no murmurs/rubs/gallops Lung: CTAB, no wheezes/rhonchi/rales Abd: Soft, NT/ND Extrem: WWP, no LE edema Skin: Warm, Intact Neuro: AAOX3, no focal deficits Psych: Appropriate mood & affect Lab Results No 36 Hour Lab Data Assessment/Plan #Chest pain #Tachycardia #ACS ruled out #Hypertension #Hyperlipidemia #CAD status post CABG in 2014 with CHURCHILL to LAD and SVG to ramus #CAMILO on CPAP #Coronary artery stenosis #Peripheral vascular disease #BPH - Senior Game Designer: Dr. George Plan: - Repeat 2D echo if last echo older than 6mo - Ordered stat labs - Ordered D-dimer rule out PE as a cause for chest pain - Inpatient ACS regimen ACEi/ARB: None Analgesia: None Antiplatelet:Aspirin 81 mg daily After/Pre: None BBlockade: Metoprolol XL 25 mg twice daily, will augment with IV metoprolol 5 pushes as needed Lipid: Not on statin outpatient due to intolerance, follow-up outpatient for PCSK9 inhibitor Device: None Advanced Therapies: None - Continue all other home chronic medications - Consulted electrophysiology for evaluation of atrial tachycardia/atrial flutter Fluids/Electrolytes/Nutrition: - F: N - E: Replace PRN - N: Cardiac Prophylaxis/Misc: - DVT: Hep Subq - GI: N - Bowel: N Code Status: Full Dispo: CCU Patient seen and discussed with Dr. 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 Somatic dysfunction of cervical region Somatic dysfunction of lumbar region Somatic dysfunction of thoracic region Transient memory loss Unintentional weight loss Historical No qualifying data Procedure/Surgical History Coronary artery bypass graft x 2 Medications Home Medications (5) Active aspirin 81 mg oral delayed release tablet , Oral, qDay doxazosin 4 mg oral tablet 4 mg = 1 tab(s), Oral, qHS finasteride 5 mg oral tablet 5 mg = 1 tab(s), Oral, qDay Multivitamin 1 tab(s), Oral, Daily Tylenol 600 mg, Oral, BID Allergies fentaNYL (irregular heart rate) Social History Smoking Status - 02/02/2017 Never smoker Alcohol - No Risk, 06/02/2022 Use: Current. Frequency: 1-2 times per year., 06/22/2019 Nutrition/Health Caffeine intake amount: 1 serving of coffee daily., 06/22/2019 Substance Abuse - No Risk, 06/02/2022 Use: Never., 06/22/2019 Tobacco - No Risk, 06/02/2022 Nicotine Use: Former smoker, quit more than 30 days ago. Exposure to Tobacco Smoke Lives in non-smoking home., 02/22/2021 Family History Alzheimer's disease: Father and Sister. Colon cancer: Brother. Diabetes: Sister. Prostate cancer: Father. Pulmonary embolism: Brother. Immunizations pneumococcal 13-valent conjugate vaccine: 0 unknown unit (10/26/16) tetanus/diphth/pertuss (Tdap) adult/adol: 0 unknown unit (06/07/16) Code Status Code Status - Ordered -- 06/02/22 18:47:00 EDT, Full Code - PCP will confirm in AM, Constant Order Digitally Signed by OMAYRA FAY MD on 06/02/2022 07:25 PM Digitally Signed by OMAYRA FAY MD on 06/02/2022 07:25 PM [facility] 06-04-2022 Cardiology Progress note Date of Service 06/03/22 Chief Complaint CP HPI 72-year-old male with past medical history of hypertension, hyperlipidemia CAD status post CABG in 2014 with CHURCHILL to the LAD and SVG to the ramus, CAMILO on CPAP, carotid artery stenosis, and peripheral vascular disease went into [place] emergency department complaining of chest pain. Patient was sent from [place] ED as a STEMI alert. Patient underwent urgent cardiac catheterization which showed diffuse mild to moderate coronary artery disease with patent grafts. Patient will be admitted to cardiology service for work-up of chest pain and tachycardia. Electrophysiology consulted during stay. Tachycardia determined to be atrial flutter. Patient started on IV heparin drip with plan for KELLI with cardioversion in the future. Subjective NAEO No new complaints Objective Vitals and Measurements T: 36.6 C (Oral) TMIN: 36.4 C (Oral) TMAX: 36.6 C (Oral) HR: 144(Apical) RR: 18 BP: 126/60 SpO2: 97% HT: 175.3 cm WT: 87.1 kg BMI: 28.34 Intake and Output 7AM Yesterday to 7AM Today Intake and Output (Last 24 hours) Intake Oral Intake 100.00 Output Urine Voided 700.00 Total Summary Total Intake 100.00 Total Output 700.00 Fluid Balance -600.00 Physical Exam General: AAOX3, NAD HEENT: Anicteric sclera, MMM Neck: Trachea midline, no JVD appreciated CVS: RRR, normal S1/S2, no murmurs/rubs/gallops Lung: CTAB, no wheezes/rhonchi/rales Abd: Soft, NT/ND Extrem: WWP, no LE edema Skin: Warm, Intact Neuro: AAOX3, no focal deficits Psych: Appropriate mood & affect Weight Dosing Weight: 87.1 kg (06/02/22) Medications Medications (11) Active Scheduled: (7) aspirin 81 mg EC 81 mg 1 tab(s), Oral, qDayM doxazosin 4 mg Tablet 4 mg 1 tab(s), Oral, qHS finasteride 5 mg tablet 5 mg 1 tab(s), Oral, qDay heparin 5,000 units/mL (1 mL) vial 5,000 unit(s) 1 mL, Subcutaneous, q8h metoprolol succinate 50 mg ER tablet 50 mg 1 tab(s), Oral, BID multivitamin tablet 1 tab(s), Oral, Daily No metformin for 48 hrs post contrast 1 EA, Miscellaneous, Unscheduled Continuous: (0) PRN: (4) acetaminophen 325 mg Tablet 650 mg 2 tab(s), Oral, q4h albuterol - ipratropium 2.5 mg-0.5 mg/3 mL Inhal Fouzia UD 3 mL, Inhalation, q4hRT melatonin 3 mg tablet 3 mg 1 tab(s), Oral, qHS metoprolol 1 mg/mL (5mL) vial 5 mg 5 mL, IV Push, q6h Lab Results 06/03 04:55 WBC: 7.2 Hgb: 14.5 Hct: 42.1 Platelet: 200 Neutrophil %: 62.0 Glucose Level: 109 Sodium Level: 140 Potassium Level: 4.3 BUN: 19.0 Creatinine Lvl (s): 1.24 06/02 19:37 WBC: 7.2 Hgb: 13.8 Hct: 39.4 L Platelet: 197 Neutrophil %: 70.2 Glucose Level: 102 Sodium Level: 139 Potassium Level: 4.5 BUN: 22.0 Creatinine Lvl (s): 1.15 EKG Electrocardiogram (EKG) - InProcess -- 06/02/22 18:47:00 EDT Assessment/Plan #New onset atrial flutter #Hypertension #Hyperlipidemia #CAD status post CABG in 2014 with CHURCHILL to LAD and SVG to ramus #CAMILO on CPAP #Coronary artery stenosis #Peripheral vascular disease #BPH - Senior Game Designer: Dr. George Plan: - Consulted electrophysiology for evaluation of atrial flutter - Repeat 2D echo if last echo older than 6mo - Started IV heparin drip - Ordered KELLI with cardioversion, NPO at midnight - Increased to Metoprolol XL 50 mg twice daily, will augment with IV metoprolol 5 pushes - Not on statin outpatient due to intolerance, follow-up outpatient for PCSK9 inhibitor - Continue all other home chronic medications Fluids/Electrolytes/Nutrition: - F: N - E: Replace PRN - N: Cardiac Prophylaxis/Misc: - DVT: Hep IV Drip - GI: N - Bowel: N Code Status: Full Dispo: CCU Patient seen and discussed with Dr. John Fay II, MD PGY-4 Cardiovascular Disease Fellow Pager: [phone] Digitally Signed by OMAYRA FAY MD on 06/03/2022 10:17 AM [facility] 06-03-2022 Consult note Date of Service 06/03/2022 Reason for Consultation Atrial flutter Referring Physician Krishan AZUL History of Present Illness This is a 72-year-old male with past medical history for CAD status post CABG in 2014 hospitalized with chest pain admitted noted to be atrial flutter with 2-1 Ventricular response. He underwent a cardiac catheterization showing no significant or acute coronary artery heart disease. He was subsequently hospitalized was placed on rate control therapy. He denies of chest pain noted for currently doing well. No history of anticoagulation is noted the past. He denies syncope or loss of conscious Review of Systems A complete 13 point review of systems is essentially unremarkable other than the above. Pertinent positives and negatives listed in the HPI. Physical Exam Vitals and Measurements T: 36.5 C (Oral) TMIN: 36.3 C (Oral) TMAX: 36.6 C (Oral) HR: 85(Apical) RR: 16 BP: 138/68 SpO2: 96% Weight Dosing Weight: 87.1 kg (06/02/22) Lab Results 06/03 09:51 Protime: 13.8 PT International Ratio: 1.2 06/03 04:55 WBC: 7.2 Hgb: 14.5 Hct: 42.1 Platelet: 200 Neutrophil %: 62.0 Glucose Level: 109 Sodium Level: 140 Potassium Level: 4.3 BUN: 19.0 Creatinine Lvl (s): 1.24 06/02 19:37 WBC: 7.2 Hgb: 13.8 Hct: 39.4 L Platelet: 197 Neutrophil %: 70.2 Glucose Level: 102 Sodium Level: 139 Potassium Level: 4.5 BUN: 22.0 Creatinine Lvl (s): 1.15 Assessment/Plan Orders: heparin, Start: 06/03/22 9:22:00 EDT, Dose = 4,000 unit(s), = 0.8 mL, IV Push, q6h, PRN, Protocol, Weight Based Heparin, 06/03/22 9:22:00 EDT heparin 25,000 unit(s) + Dextrose 5% Premix Diluent 250 mL, Start: 06/03/22 9:22:00 EDT, Rate: 10 mL/hr, 06/03/22 9:22:00 EDT Call Parameters Complete Blood Count Heparin/APTT Initiation Heparin/APTT Maintenance Heparin/APTT Maintenance Heparin/APTT Maintenance Heparin/APTT Maintenance Atrial flutter: Persistent and symptomatic with chest pain and chest heaviness. No evidence of any underlying atherosclerotic disease requiring revascularization at this time. I would continue with current drug regimen. Initiate intravenous heparin for anticoagulation prior to KELLI cardioversion in a.m. He will require antiarrhythmic therapy likely with sotalol. I am still concerned of the possibility of a scar deviated atrial area given the slow flutter rate. He did mention having mitral valve regurgitation and prolapse that may have required mitral valve repair at the time of bypass. Further evaluation and assessment by transesophageal echocardiogram recommended in the a.m. CAD status post CABG Hypertension Hyperlipidemia Peripheral vascular disease Plan: As above. 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 Somatic dysfunction of cervical region Somatic dysfunction of lumbar region Somatic dysfunction of thoracic region Transient memory loss Unintentional weight loss Historical No qualifying data Procedure/Surgical History Coronary artery bypass graft x 2 Medications Inpatient Liz Aspirin, 81 mg= 1 tab(s), Oral, qDayM doxazosin 4 mg oral tablet, 4 mg= 1 tab(s), Oral, qHS DuoNeb, 3 mL, Inhalation, q4hRT, PRN finasteride 5 mg oral tablet, 5 mg= 1 tab(s), Oral, qDay Heparin for IV 25,000 unit(s) + Dextrose 5% Premix Diluent 250 mL Heparin HBW CARDIAC Bolus 5000 units/mL, 4000 unit(s)= 0.8 mL, 60 unit(s)/kg, IV Push, q6h, PRN Lopressor, 5 mg= 5 mL, IV Push, q6h, PRN melatonin, 3 mg= 1 tab(s), Oral, qHS, PRN Multivitamin, 1 tab(s), Oral, Daily NO METFORMIN (Glucophage) X 48hrs-patient has received contrast, 1 EA, Miscellaneous, Unscheduled Toprol-XL, 50 mg= 1 tab(s), Oral, BID Tylenol, 650 mg= 2 tab(s), Oral, q4h, PRN Home aspirin 81 mg oral delayed release tablet, Oral, qDay doxazosin 4 mg oral tablet, 4 mg= 1 tab(s), Oral, qHS finasteride 5 mg oral tablet, 5 mg= 1 tab(s), Oral, qDay Multivitamin, 1 tab(s), Oral, Daily Tylenol, 600 mg, Oral, BID Allergies Statins fentaNYL (irregular heart rate) Social History Smoking Status - 02/02/2017 Never smoker Alcohol - No Risk, 06/02/2022 Use: Current. Frequency: 1-2 times per year., 06/22/2019 Nutrition/Health Caffeine intake amount: 1 serving of coffee daily., 06/22/2019 Substance Abuse - No Risk, 06/02/2022 Use: Never., 06/22/2019 Tobacco - No Risk, 06/02/2022 Nicotine Use: Former smoker, quit more than 30 days ago. Exposure to Tobacco Smoke Lives in non-smoking home., 02/22/2021 Family History Alzheimer's disease: Father and Sister. Colon cancer: Brother. Diabetes: Sister. Prostate cancer: Father. Pulmonary embolism: Brother. Immunizations pneumococcal 13-valent conjugate vaccine: 0 unknown unit (10/26/16) tetanus/diphth/pertuss (Tdap) adult/adol: 0 unknown unit (06/07/16) Digitally Signed by CINDY GOMEZ MD on 06/03/2022 06:59 PM [facility] 06-03-2022 Cardiology Progress note Date of Service 06/03/22 Chief Complaint CP HPI 72-year-old male with past medical history of hypertension, hyperlipidemia CAD status post CABG in 2014 with CHURCHILL to the LAD and SVG to the ramus, CAMILO on CPAP, carotid artery stenosis, and peripheral vascular disease went into [place] emergency department complaining of chest pain. Patient was sent from [place] ED as a STEMI alert. Patient underwent urgent cardiac catheterization which showed diffuse mild to moderate coronary artery disease with patent grafts. Patient will be admitted to cardiology service for work-up of chest pain and tachycardia. Electrophysiology consulted during stay. Tachycardia determined to be atrial flutter. Patient started on IV heparin drip with plan for KELLI with cardioversion in the future. Subjective NAEO No new complaints Objective Vitals and Measurements T: 36.6 C (Oral) TMIN: 36.4 C (Oral) TMAX: 36.6 C (Oral) HR: 144(Apical) RR: 18 BP: 126/60 SpO2: 97% HT: 175.3 cm WT: 87.1 kg BMI: 28.34 Intake and Output 7AM Yesterday to 7AM Today Intake and Output (Last 24 hours) Intake Oral Intake 100.00 Output Urine Voided 700.00 Total Summary Total Intake 100.00 Total Output 700.00 Fluid Balance -600.00 Physical Exam General: AAOX3, NAD HEENT: Anicteric sclera, MMM Neck: Trachea midline, no JVD appreciated CVS: RRR, normal S1/S2, no murmurs/rubs/gallops Lung: CTAB, no wheezes/rhonchi/rales Abd: Soft, NT/ND Extrem: WWP, no LE edema Skin: Warm, Intact Neuro: AAOX3, no focal deficits Psych: Appropriate mood & affect Weight Dosing Weight: 87.1 kg (06/02/22) Medications Medications (11) Active Scheduled: (7) aspirin 81 mg EC 81 mg 1 tab(s), Oral, qDayM doxazosin 4 mg Tablet 4 mg 1 tab(s), Oral, qHS finasteride 5 mg tablet 5 mg 1 tab(s), Oral, qDay heparin 5,000 units/mL (1 mL) vial 5,000 unit(s) 1 mL, Subcutaneous, q8h metoprolol succinate 50 mg ER tablet 50 mg 1 tab(s), Oral, BID multivitamin tablet 1 tab(s), Oral, Daily No metformin for 48 hrs post contrast 1 EA, Miscellaneous, Unscheduled Continuous: (0) PRN: (4) acetaminophen 325 mg Tablet 650 mg 2 tab(s), Oral, q4h albuterol - ipratropium 2.5 mg-0.5 mg/3 mL Inhal Fouzia UD 3 mL, Inhalation, q4hRT melatonin 3 mg tablet 3 mg 1 tab(s), Oral, qHS metoprolol 1 mg/mL (5mL) vial 5 mg 5 mL, IV Push, q6h Lab Results 06/03 04:55 WBC: 7.2 Hgb: 14.5 Hct: 42.1 Platelet: 200 Neutrophil %: 62.0 Glucose Level: 109 Sodium Level: 140 Potassium Level: 4.3 BUN: 19.0 Creatinine Lvl (s): 1.24 06/02 19:37 WBC: 7.2 Hgb: 13.8 Hct: 39.4 L Platelet: 197 Neutrophil %: 70.2 Glucose Level: 102 Sodium Level: 139 Potassium Level: 4.5 BUN: 22.0 Creatinine Lvl (s): 1.15 EKG Electrocardiogram (EKG) - InProcess -- 06/02/22 18:47:00 EDT Assessment/Plan #New onset atrial flutter #Hypertension #Hyperlipidemia #CAD status post CABG in 2014 with CHURCHILL to LAD and SVG to ramus #CAMILO on CPAP #Coronary artery stenosis #Peripheral vascular disease #BPH - Senior Game Designer: Dr. George Plan: - Consulted electrophysiology for evaluation of atrial flutter - Repeat 2D echo if last echo older than 6mo - Started IV heparin drip - Ordered KELLI with cardioversion, NPO at midnight - Increased to Metoprolol XL 50 mg twice daily, will augment with IV metoprolol 5 pushes - Not on statin outpatient due to intolerance, follow-up outpatient for PCSK9 inhibitor - Continue all other home chronic medications Fluids/Electrolytes/Nutrition: - F: N - E: Replace PRN - N: Cardiac Prophylaxis/Misc: - DVT: Hep IV Drip - GI: N - Bowel: N Code Status: Full Dispo: CCU Patient seen and discussed with Dr. John Fay II, MD PGY-4 Cardiovascular Disease Fellow Pager: [phone] Digitally Signed by OMAYRA FAY MD on 06/03/2022 10:17 AM [facility] 06-02-2022 History and physical note Date of Service 06/02/22 Chief Complaint CP HPI: 72-year-old male with past medical history of hypertension, hyperlipidemia CAD status post CABG in 2014 with CHURCHILL to the LAD and SVG to the ramus, CAMILO on CPAP, carotid artery stenosis, and peripheral vascular disease went into [place] emergency department complaining of chest pain. Patient said he got substernal chest pain with dinner went to the emergency department for further work-up. When he arrived in the ED STEMI was alerted for EKG changes showing possible ST elevations in leads II, III, and aVF. Patient underwent urgent cardiac catheterization which showed diffuse mild to moderate coronary artery disease with patent grafts. Patient will be admitted to cardiology service for work-up of chest pain and atrial tachycardia/flutter. PMH: As documented in chart PSH: As documented in chart FH: As documented in chart SH: As documented in chart Allergies: As documented in chart Review of Systems General: negative for weight change, fevers/night sweats/chills, fatigue/weakness Skin: negative for skin changes HEENT: negative for headache, visual changes, hearing loss, rhinorrhea/congestion/epistaxis, bleeding gums, hoarseness/sore throat Breasts: negative for skin changes, discharge Cardiac: Angina negative for murmurs, palpitations, HANCOCK, orthopnea, PND, edema Pulmonary: negative for SOB, wheezing, cough, sputum/hemoptysis, PNA, asthma/bronchitis/COPD GI: negative for N/V, change in appetite, dysphagia, change in BM, stool color, hematemesis/melena/hematochezia, constipation/diarrhea : negative for polydipsia, polyuria, hematuria, dysuria, nocturia MSK: negative for muscle weakness, joint pain/stiffness, redness/swelling Heme: negative for anemia, easy bruising Neurologic: negative for loss of sensation/numbness/tingling, weakness/paralysis Physical Exam Vitals and Measurements T: 36.4 C (Oral) HR: 116(Monitored) RR: 17 BP: 138/76 SpO2: 97% HT: 175.3 cm WT: 87.1 kg BMI: 28.34 Weight Dosing Weight: 87.1 kg (06/02/22) General: AAOX3, NAD HEENT: Anicteric sclera, MMM Neck: Trachea midline, no JVD appreciated CVS: Irregular heart rate, regular rhythm, normal S1/S2, no murmurs/rubs/gallops Lung: CTAB, no wheezes/rhonchi/rales Abd: Soft, NT/ND Extrem: WWP, no LE edema Skin: Warm, Intact Neuro: AAOX3, no focal deficits Psych: Appropriate mood & affect Lab Results No 36 Hour Lab Data Assessment/Plan #Chest pain #Tachycardia #ACS ruled out #Hypertension #Hyperlipidemia #CAD status post CABG in 2014 with CHURCHILL to LAD and SVG to ramus #CAMILO on CPAP #Coronary artery stenosis #Peripheral vascular disease #BPH - Senior Game Designer: Dr. George Plan: - Repeat 2D echo if last echo older than 6mo - Ordered stat labs - Ordered D-dimer rule out PE as a cause for chest pain - Inpatient ACS regimen ACEi/ARB: None Analgesia: None Antiplatelet:Aspirin 81 mg daily After/Pre: None BBlockade: Metoprolol XL 25 mg twice daily, will augment with IV metoprolol 5 pushes as needed Lipid: Not on statin outpatient due to intolerance, follow-up outpatient for PCSK9 inhibitor Device: None Advanced Therapies: None - Continue all other home chronic medications - Consulted electrophysiology for evaluation of atrial tachycardia/atrial flutter Fluids/Electrolytes/Nutrition: - F: N - E: Replace PRN - N: Cardiac Prophylaxis/Misc: - DVT: Hep Subq - GI: N - Bowel: N Code Status: Full Dispo: CCU Patient seen and discussed with Dr. 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 Somatic dysfunction of cervical region Somatic dysfunction of lumbar region Somatic dysfunction of thoracic region Transient memory loss Unintentional weight loss Historical No qualifying data Procedure/Surgical History Coronary artery bypass graft x 2 Medications Home Medications (5) Active aspirin 81 mg oral delayed release tablet , Oral, qDay doxazosin 4 mg oral tablet 4 mg = 1 tab(s), Oral, qHS finasteride 5 mg oral tablet 5 mg = 1 tab(s), Oral, qDay Multivitamin 1 tab(s), Oral, Daily Tylenol 600 mg, Oral, BID Allergies fentaNYL (irregular heart rate) Social History Smoking Status - 02/02/2017 Never smoker Alcohol - No Risk, 06/02/2022 Use: Current. Frequency: 1-2 times per year., 06/22/2019 Nutrition/Health Caffeine intake amount: 1 serving of coffee daily., 06/22/2019 Substance Abuse - No Risk, 06/02/2022 Use: Never., 06/22/2019 Tobacco - No Risk, 06/02/2022 Nicotine Use: Former smoker, quit more than 30 days ago. Exposure to Tobacco Smoke Lives in non-smoking home., 02/22/2021 Family History Alzheimer's disease: Father and Sister. Colon cancer: Brother. Diabetes: Sister. Prostate cancer: Father. Pulmonary embolism: Brother. Immunizations pneumococcal 13-valent conjugate vaccine: 0 unknown unit (10/26/16) tetanus/diphth/pertuss (Tdap) adult/adol: 0 unknown unit (06/07/16) Code Status Code Status - Ordered -- 06/02/22 18:47:00 EDT, Full Code - PCP will confirm in AM, Constant Order Digitally Signed by OMAYRA FAY MD on 06/02/2022 07:25 PM Digitally Signed by OMAYRA FAY MD on 06/02/2022 07:25 PM [facility] 06-02-2022 Note ORIGINAL EXAMINATION: ONE XRAY VIEW OF THE CHEST 06/02/2022 4:53 pm COMPARISON: 05/27/2015. HISTORY: ORDERING SYSTEM PROVIDED HISTORY: Reason for Exam: chest pain FINDINGS: The patient is status post sternotomy with intact wires. Epicardial pacing wires are seen. The cardiomediastinal silhouette is stable. No pleural effusion, pneumothorax, or focal consolidation appreciated. Degenerative changes of the spine. Surgical clips are seen overlying the left upper quadrant. IMPRESSION: No acute radiographic findings. I have personally reviewed the images of this examination and agree with the resident's findings and interpretation. Interpreted by: Christian Rocha DO Preliminary Report By: Josue Dunn Electronically signed By Christian Rocha DO Dictated Date: 06/02/2022 5:11:21 PM Prelim Date: 06/02/2022 5:14:30 PM Sign Date: 06/02/2022 5:32:46 PM Ordering Provider: [facility] 06-02-2022 Note ORIGINAL EXAMINATION: ONE XRAY VIEW OF THE CHEST 06/02/2022 4:53 pm COMPARISON: 05/27/2015. HISTORY: ORDERING SYSTEM PROVIDED HISTORY: Reason for Exam: chest pain FINDINGS: The patient is status post sternotomy with intact wires. Epicardial pacing wires are seen. The cardiomediastinal silhouette is stable. No pleural effusion, pneumothorax, or focal consolidation appreciated. Degenerative changes of the spine. Surgical clips are seen overlying the left upper quadrant. IMPRESSION: No acute radiographic findings. I have personally reviewed the images of this examination and agree with the resident's findings and interpretation. Interpreted by: Christian Rocha DO Preliminary Report By: Josue Dunn Electronically signed By Christian Rocha DO Dictated Date: 06/02/2022 5:11:21 PM Prelim Date: 06/02/2022 5:14:30 PM Sign Date: 06/02/2022 5:32:46 PM Ordering Provider: [facility] #Chest pain #Tachycardia #ACS ruled out #Hypertension #Hyperlipidemia #CAD status post CABG in 2015 with CHURCHILL to LAD and SVG to ramus #CAMILO on CPAP #Coronary artery stenosis #Peripheral vascular disease #BPH - Senior Game Designer: Dr. George Plan: - Repeat 2D echo if last echo older than 6mo - Ordered stat labs - Ordered D-dimer rule out PE as a cause for chest pain - Inpatient ACS regimen ACEi/ARB: None Analgesia: None Antiplatelet: Aspirin 81 mg daily After/Pre: None BBlockade: Metoprolol XL 25 mg twice daily, will augment with IV metoprolol 5 pushes as needed Lipid: Not on statin outpatient due to intolerance, follow-up outpatient for PCSK9 inhibitor Device: None Advanced Therapies: None - Continue all other home chronic medications - Consulted electrophysiology for evaluation of atrial tachycardia/atrial flutter Fluids/Electrolytes/Nutrition: - F: N - E: Replace PRN - N: Cardiac Prophylaxis/Misc: - DVT: Hep Subq - GI: N - Bowel: N Code Status: Full Dispo: CCU Patient seen and discussed with Dr. Layo Fay II, MD PGY-4 Cardiovascular Disease Fellow Pager: [phone] Addendum by KARAN LEAHY MD on June 04, 2022 11:42:14 EDT I have personally seen, examined, and evaluated the patient on the encounter date. I have reviewed the fellow s documentation and agree with the fellow s findings and plan as documented, unless otherwise stated. No objective evidence of ischemia other than ST changes. Vital signs stable heart rates in an atrial tachyarrhythmia likely responsible for his presentation. Euvolemic clinically admit for EP evaluation Future Appointments Appointment Date:06/06/2022 11:45:00 AM Scheduled Provider: Location:[facility] Appointment Type:CV Nurse EKG Appointment Date:06/27/2022 08:30:00 AM Scheduled Provider:ANDRESSA LOUIS DO Location:[facility] Appointment Type:PC OV Future Scheduled Tests Laboratory* Urine Culture 12/19/21 [facility] 10-07-2022 Miscellaneous Notes* Telephone Encounter - Dimitri George DO - 06/01/2022 5:45 AM EDT Call echo and stress are stable * Telephone Encounter - Marleny Pineda MA - 05/31/2022 3:44 PM EDT Pt echo and stress test have been scanned in for review [facility] Note ORIGINAL NM MYOCARDIAL SPECT STRESS/REST CLINICAL STATEMENT: DIZZINESS, DOUBLE VISION, BL CAROTID STENOSIS TECHNIQUE: Lexiscan dose:0.4 mg Radiopharmaceutical (stress): Tc-99m Sestamibi Dose:30.5 mCi Radiopharmaceutical (rest): Tc-99m Sestamibi Dose:0.5 mCi SPECT acquisition and processing Reconstruction and reorientation of SPECT images into short axis, vertical and horizontal long axisplanes Quantitative LVEF assessment COMPARISON:2017 REPORT: Poststress myocardial perfusion images showed moderate severe perfusion defect at the inferior walland apical lateral wall Resting images showed improved perfusion at the apical lateral wall but similar perfusion at inferior wall LVEF 62% to with septal hypokinesis and inferior hypokinesis TID 0.85 IMPRESSION: Positive for inferior infarct with mild small area of mile-infarct apical ischemia Diaphragmatic attenuation interfering with image interpretation LVEF 60% with focal wall motion abnormality More pronounced perfusion defect compared to 2017 Interpreted By: Black Clark Preliminary Report By: Black Clark Electronically Signed By: Black Clark Dictated Date: 05/30/2022 5:26:27 PM Prelim Date: 05/30/2022 5:26:27 PM Sign Date: 05/30/2022 5:32:56 PM Ordering Provider:[facility]10-05-2022 Note ORIGINAL NM MYOCARDIAL SPECT STRESS/REST CLINICAL STATEMENT: DIZZINESS, DOUBLE VISION, BL CAROTID STENOSIS TECHNIQUE: Lexiscan dose:0.4 mg Radiopharmaceutical (stress): Tc-99m Sestamibi Dose:30.5 mCi Radiopharmaceutical (rest): Tc-99m Sestamibi Dose:0.5 mCi SPECT acquisition and processing Reconstruction and reorientation of SPECT images into short axis, vertical and horizontal long axisplanes Quantitative LVEF assessment COMPARISON:2017 REPORT: Poststress myocardial perfusion images showed moderate severe perfusion defect at the inferior walland apical lateral wall Resting images showed improved perfusion at the apical lateral wall but similar perfusion at inferior wall LVEF 62% to with septal hypokinesis and inferior hypokinesis TID 0.85 IMPRESSION: Positive for inferior infarct with mild small area of mile-infarct apical ischemia Diaphragmatic attenuation interfering with image interpretation LVEF 60% with focal wall motion abnormality More pronounced perfusion defect compared to 2017 Interpreted By: Black Clark Preliminary Report By: Black Clark Electronically Signed By: Black Clark Dictated Date: 05/30/2022 5:26:27 PM Prelim Date: 05/30/2022 5:26:27 PM Sign Date: 05/30/2022 5:32:56 PM Ordering Provider:[facility]09-29-2022 Miscellaneous Notes* Telephone Encounter - Marleny Pineda MA - 05/24/2022 1:15 PM EDT Pt called and notified per Both carotid screening and CT brain normal. pt agreeable * Telephone Encounter - Jasmyn Ruiz APRN.CNP - 05/24/2022 12:51 PM EDT Both carotid screening and CT brain normal. * Telephone Encounter - Marleny Pineda MA - 05/23/2022 10:44 AM EDT Pt carotid and CT have been scanned in for review. Pt carotid is scanned in the cardiac tab Pt echo/stress scheduled for next week [facility] Note. MICRO - Microbiology PROCEDURE: Urine Culture [*1] SOURCE: Urine, Clean Catch BODY SITE: COLLECTED DATE/TIME: 05/17/2022 14:34 EDT RECEIVED DATE/TIME: 05/17/2022 21:18 EDT START DATE/TIME: 05/17/2022 21:18 EDT FREE TEXT SOURCE: FINAL REPORTS Final Report [] Verified Date/Time/Personnel: 05/19/2022 07:57 EDT No growth at 48 hours. PRELIMINARY REPORTS Preliminary Report [] Verified Date/Time/Personnel: 05/18/2022 12:39 EDT No growth to date Performing Locations *1: This test was performed at: [facility], [address] [place] [address], [id number] , [facility] ([place])05-16-2022 Miscellaneous Notes* Telephone Encounter - Valorie Ash - 05/16/2022 9:02 AM EDT US Carotid, CT brain, Stress and Echo scheduled at [facility] US Carotid/CT Brain on 05/21 @ 2:45 pm Stress/Echo on 05/30 @ 6:30 am Orders faxed and patient notified * Telephone Encounter - Juan Carlos Chowdhury - 05/11/2022 10:41 AM EDT Per Aim, Approved for Carotid US at [facility]; Auth # [id number] 05/11/2022-08/08/2022 Juan Carlos Chowdhury * Telephone Encounter - Juan Carlos Chowdhury - 05/11/2022 7:27 AM EDT Auth request started with Aim with pending case # [id number] Juan Carlos Chowdhury * Telephone Encounter - Valorie Ash - 05/10/2022 3:31 PM EDT Patient is also needing an US carotid Bilateral. Can you please get an auth for that also at [facility] * Telephone Encounter - Juan Carlos Chowdhury - 05/10/2022 7:35 AM EDT Per Aim, Approved for CT at [facility]; Auth # [id number] 05/10/2022-08/07/2022 Per Aim, Approved for Stress test at [facility]; Auth # [id number] 05/10/2022-08/07/2022 Per Aim, Approved for Echo at [facility]; Auth # [id number] 05/10/2022-08/07/2022 Juan Carlos Chowdhury * Telephone Encounter - Marycarmen Calle MA - 05/09/2022 3:31 PM EDT Prior authorization request for STRESS TEST, ECHO AND BRAIN CT is being submitted for review. Please notify clerical staff when ready. PLEASE SCHEDULE AT [facility]. Marycarmen Calle MA documented in this encounterOhio [facility]22 NoteHNO ID: [id number] Author: Dimitri George, DO Service: ? Author Type: Physician Type: Progress Notes Filed: 05/10/2022 6:02 AM Note Text: Referring Provider: Self Date: May 09, 2022 Chief Complaint: Acute follow up for HTN and Edema HISTORY OF PRESENT ILLNESS: David Jacobson is a 72 year old male who presents for Acute follow up for HTN and Edema. ALLERGIES No Known Allergies PAST MEDICAL HISTORY: PAST MEDICAL HISTORY Diagnosis Date Benign hypertension Bilateral carotid artery stenosis CAD in [place] artery Chest pain in adult Costochondritis Dizziness Edema of extremities Fibromyalgia GERD (gastroesophageal reflux disease) Hiatal hernia History of echocardiogram 06/10/2014 EF 60-65%mild MVP mild to mod MR minimal to mild AR mild TR stage 1 diastolic dysfunction History of stress test 01/03/2017 minimal septal ischemia small inferior wall scar no reversible ischemia EF 62% with mild septal hypokinesis Mitral regurgitation Mitral valve prolapse CAMILO (obstructive sleep apnea) Restless leg syndrome S/P CABG (coronary artery bypass graft) 03/11/2015 CHURCHILL to LAD SVG to ramus intermedius PAST SURGICAL HISTORY Procedure Laterality Date OTHER trigger finger release OTHER 02/11/15 CABG x 2 OTHER tiffany fundoplication at [facility] PAST SURGICAL HISTORY OF 03/2015 right carpal tunnel PAST SURGICAL HISTORY OF Left 2005 left shoulder surgery - scraping PAST SURGICAL HISTORY OF Left 2000 varicose vein stripping FAMILY HISTORY Problem Relation Age of Onset other (melanoma) Brother other (VSD) Brother None Mother other (cancer) Mother None Father other (atherosclerotic heart disease) Father other (VSD) Sister SOCIAL HISTORY: Tobacco Use: Quit (quit at age 24) Alcohol Use: No Drug Use: No Employer And Job Title: None on file Years Of Education Completed: Not specified Marital Status: MEDICATIONS: Current Outpatient Medications Medication Sig acetaminophen (TYLENOL) 500 mg tablet Take by mouth as needed. atenolol (TENORMIN) 50 mg tablet Take 1 tablet by mouth once daily. (Patient taking differently: Take 50 mg by mouth every 48 hours.) MULTIVITAMIN ORAL once daily. magnesium oxide 400 mg magnesium tab Take by mouth once daily. lansoprazole (PREVACID) 15 mg capsule Take 15 mg by mouth twice daily. aspirin, enteric coated (ASPIRIN, ENTERIC COATED) 81 mg EC tablet Take 81 mg by mouth once daily. No current facility-administered medications for this visit. I have personally reviewed the patients past medical history including social, family, surgical, diagnostics, and medications. REVIEW OF SYSTEMS: Review of Systems Constitutional: Negative for chills and fatigue. Respiratory: Positive for chest tightness. Negative for shortness of breath. Cardiovascular: Positive for leg swelling. Negative for chest pain and palpitations. Neurological: Positive for dizziness. Negative for syncope, weakness and light-headedness. Hematological: Does not bruise/bleed easily. Psychiatric/Behavioral: Negative for confusion and hallucinations. Vitals: BP 150/78 Pulse (!) 56 Ht 175.3 cm (5' 9 ) Wt 86.6 kg (191 lb) BMI 28.21 kg/m? PHYSICAL EXAMINATION: BP 150/78 Pulse (!) 56 Ht 175.3 cm (5' 9 ) Wt 86.6 kg (191 lb) BMI 28.21 kg/m? Last 3 Encounter BP Readings: Date: BP: 06/16/2021 210/100 06/10/2020 142/70 10/16/2016 133/64 Last 3 Encounter Pulse Readings: Date: Pulse: 06/16/2021 63 06/10/2020 62 10/16/2016 54 Last 3 Encounter Wt Readings: Date: Wt: 06/16/2021 87.1 kg (192 lb) 06/10/2020 92.5 kg (204 lb) 10/16/2016 96.5 kg (212 lb 12.8 oz) Physical Exam Vitals reviewed. Constitutional: General: He is not in acute distress. Cardiovascular: Rate and Rhythm: Normal rate and regular rhythm. Pulses: Carotid pulses are 2+ on the right side and 2+ on the left side. Radial pulses are 2+ on the right side and 2+ on the left side. Femoral pulses are 2+ on the right side and 2+ on the left side. Popliteal pulses are 2+ on the right side and 2+ on the left side. Dorsalis pedis pulses are 2+ on the right side and 2+ on the left side. Posterior tibial pulses are 2+ on the right side and 2+ on the left side. Heart sounds: Murmur heard. Systolic murmur is present with a grade of 2/6. Comments: PMI not displaced. 2nd heart sound loud. Pulmonary: Effort: Pulmonary effort is normal. Breath sounds: Normal breath sounds. Abdominal: General: Abdomen is flat. Bowel sounds are normal. Palpations: Abdomen is soft. Tenderness: There is no abdominal tenderness. Musculoskeletal: Right lower leg: No edema. Left lower leg: No edema. Skin: General: Skin is warm. Findings: No rash or wound. Neurological: Mental Status: He is alert and oriented to person, place, and time. Coordination: Coordination is intact. LABS: No results found for: GLUC, K, NA, CHLOR, CO2, CRE (more content not included)...[facility]09-14-2022 History of Present illness Narrative* Dimitri Geroge, - 05/09/2022 2:45 PM EDT Referring Provider: Self Date: May 09, 2022 Chief Complaint: Acute follow up for HTN and Edema HISTORY OF PRESENT ILLNESS: David Jacobson is a 72 year old male who presents for Acute follow up for HTN and Edema. ALLERGIES No Known Allergies PAST MEDICAL HISTORY: PAST MEDICAL HISTORY Diagnosis Date Benign hypertension Bilateral carotid artery stenosis CAD in [place] artery Chest pain in adult Costochondritis Dizziness Edema of extremities Fibromyalgia GERD (gastroesophageal reflux disease) Hiatal hernia History of echocardiogram 06/10/2014 EF 60-65%mild MVP mild to mod MR minimal to mild AR mild TR stage 1 diastolic dysfunction History of stress test 01/03/2017 minimal septal ischemia small inferior wall scar no reversible ischemia EF 62% with mild septal hypokinesis Mitral regurgitation Mitral valve prolapse CAMILO (obstructive sleep apnea) Restless leg syndrome S/P CABG (coronary artery bypass graft) 03/11/2015 CHURCHILL to LAD SVG to ramus intermedius PAST SURGICAL HISTORY Procedure Laterality Date OTHER trigger finger release OTHER 02/11/15 CABG x 2 OTHER tiffany fundoplication at [facility] PAST SURGICAL HISTORY OF 03/2015 right carpal tunnel PAST SURGICAL HISTORY OF Left 2005 left shoulder surgery - scraping PAST SURGICAL HISTORY OF Left 2000 varicose vein stripping FAMILY HISTORY Problem Relation Age of Onset other (melanoma) Brother other (VSD) Brother None Mother other (cancer) Mother None Father other (atherosclerotic heart disease) Father other (VSD) Sister SOCIAL HISTORY: Tobacco Use: Quit (quit at age 24) Alcohol Use: No Drug Use: No Employer And Job Title: None on file Years Of Education Completed: Not specified Marital Status: MEDICATIONS: Current Outpatient Medications Medication Sig acetaminophen (TYLENOL) 500 mg tablet Take by mouth as needed. atenolol (TENORMIN) 50 mg tablet Take 1 tablet by mouth once daily. (Patient taking differently: Take 50 mg by mouth every 48 hours.) MULTIVITAMIN ORAL once daily. magnesium oxide 400 mg magnesium tab Take by mouth once daily. lansoprazole (PREVACID) 15 mg capsule Take 15 mg by mouth twice daily. aspirin, enteric coated (ASPIRIN, ENTERIC COATED) 81 mg EC tablet Take 81 mg by mouth once daily. No current facility-administered medications for this visit. I have personally reviewed the patients past medical history including social, family, surgical, diagnostics, and medications. REVIEW OF SYSTEMS: Review of Systems Constitutional: Negative for chills and fatigue. Respiratory: Positive for chest tightness. Negative for shortness of breath. Cardiovascular: Positive for leg swelling. Negative for chest pain and palpitations. Neurological: Positive for dizziness. Negative for syncope, weakness and light-headedness. Hematological: Does not bruise/bleed easily. Psychiatric/Behavioral: Negative for confusion and hallucinations. Vitals: BP 150/78 Pulse (!) 56 Ht 175.3 cm (5' 9 ) Wt 86.6 kg (191 lb) BMI 28.21 kg/m PHYSICAL EXAMINATION: BP 150/78 Pulse (!) 56 Ht 175.3 cm (5' 9 ) Wt 86.6 kg (191 lb) BMI 28.21 kg/m Last 3 Encounter BP Readings: Date: BP: 06/16/2021 210/100 06/10/2020 142/70 10/16/2016 133/64 Last 3 Encounter Pulse Readings: Date: Pulse: 06/16/2021 63 06/10/2020 62 10/16/2016 54 Last 3 Encounter Wt Readings: Date: Wt: 06/16/2021 87.1 kg (192 lb) 06/10/2020 92.5 kg (204 lb) 10/16/2016 96.5 kg (212 lb 12.8 oz) Physical Exam Vitals reviewed. Constitutional: General: He is not in acute distress. Cardiovascular: Rate and Rhythm: Normal rate and regular rhythm. Pulses: Carotid pulses are 2+ on the right side and 2+ on the left side. Radial pulses are 2+ on the right side and 2+ on the left side. Femoral pulses are 2+ on the right side and 2+ on the left side. Popliteal pulses are 2+ on the right side and 2+ on the left side. Dorsalis pedis pulses are 2+ on the right side and 2+ on the left side. Posterior tibial pulses are 2+ on the right side and 2+ on the left side. Heart sounds: Murmur heard. Systolic murmur is present with a grade of 2/6. Comments: PMI not displaced. 2nd heart sound loud. Pulmonary: Effort: Pulmonary effort is normal. Breath sounds: Normal breath sounds. Abdominal: General: Abdomen is flat. Bowel sounds are normal. Palpations: Abdomen is soft. Tenderness: There is no abdominal tenderness. Musculoskeletal: Right lower leg: No edema. Left lower leg: No edema. Skin: General: Skin is warm. Findings: No rash or wound. Neurological: Mental Status: He is alert and oriented to person, place, and time. Coordination: Coordination is intact. LABS: No results found for: GLUC, K, NA, CHLOR, CO2, CREAT, BUN, ANION, CA, TPROT, ALB, TBILI, ALKPHOS, AST, ALT No results found for: HB, HCT, WBC No results found for: CHOL, HDL, LDL, TG EKG: DIAGNOSTIC TEST RESULTS: Recent Results (from the past 24 hour(s)) ECG COMPLETE Collection Time: 05/09/22 3:05 PM Result Value Ref Range Ventricular Rate 56 BPM Atrial Rate 56 BPM P-R Interval 186 ms QRS Duration 152 ms QT Interval 478 ms QTC Calculation (Bazett) 461 ms Calculated P [place] 11 degrees Calculated R [place] -34 degrees Calculated T [place] 50 degrees Narrative NAME : DAVID JACOBSON PID : [id number] : 1950 Gender : Male Race : ORD : [id number] Procedure Date : May 09 2022 15:05:59 Edit Date : May 09 2022 15:06:13 Diagnosis: SINUS BRADYCARDIA LEFT AXIS DEVIATION COMPLETE RIGHT BUNDLE BRANCH BLOCK MINIMAL VOLTAGE CRITERIA FOR LVH, MAY BE NORMAL VARIANT ABNORMAL ECG Test Reason : Location : 1 : [facility] Overread By : , Edited By : , Referred By : DIMITRI GEORGE Acquired by : , Impression SINUS BRADYCARDIA LEFT AXIS DEVIATION COMPLETE RIGHT BUNDLE BRANCH BLOCK MINIMAL VOLTAGE CRITERIA FOR LVH, MAY BE NORMAL VARIANT ABNORMAL ECG ASSESSMENT/PLAN: 1. Essential hypertension, benign - ICD9: 401.1, ICD10: I10 (primary diagnosis) Patient's blood pressure in the office today was recorded as 150/78. Target systolic BP 140 or lessand diastolic BP 90 or less. EKG done in office today. Complaining of excessive fatigue and tiredness. May be related to the beta- blockade therapy. We will wean off the beta-blockade therapy. DISCUSSED STOPPING HIS ATENOLOL. HE WAS ASKED TO TAKE THE ATENOLOL EVERY OTHER DAY FOR 2 WEEKS THENSTOP IT. Is the fatigue tiredness related to underlying CAD. We will go ahead and do a stress test looking for underlying ischemia since we are stopping the beta- blockade therapy Reviewed the last stress test. Has been 5 years ago. Years ago. WE WILL ORDER A STRESS AND ECHO TO EVALUATE HIS HEART. - ECG COMPLETE 2. Edema of extremities - ICD9: 782.3, ICD10: R60.0 Patient has edema in feet and legs and is currently not on a diuretic. 3. Bilateral carotid artery stenosis - ICD9: 433.10, 433.30, ICD10: I65.23 Patient has a history of Bilateral carotid stenosis. Stable. He is remained asymptomatic. We went over stroke symptoms 4. Coronary artery disease involving [place] coronary artery of cher[place] heart without angina pectoris- ICD9: 414.01, ICD10: I25.10 Chronic Condition. Patient denies symptoms of chest pain, pressure, tightness or fullness. Patient had CABG done on 03/11/15 and it showed CHURCHILL to LAD SVG to ramus intermedius At this time he is having chest discomfort shortness of breath. Last stress test was 5 years ago misael go ahead and repeat this looking for ischemia 5. Mitral valve prolapse - ICD9: 424.0, ICD10: I34.1 Patient had Echo done on 06/10/14 and it showed EF 60-65%mild MVP mild to mod MR minimal to mild ARmild TR stage 1 diastolic dysfunction. 6. History of stress test - ICD9: V15.89, ICD10: Z92.89 Patient had Stress test done on 01/03/17 and it showed minimal septal ischemia small inferior wall scar no reversible ischemia EF 62% with mild septal hypokinesis. 7. Former smoker - ICD9: V15.82, ICD10: Z87.891 Patient was a 0.25 pack smoker until 1971 when she stopped smoking. Patient was a smoker for 5 years. 8. Chest tightness - ICD10:R07.89 Patient stated that he has been having tightness on the left side of his chest. 9. Dizziness - ICD10:R42 Patient states getting dizzy when the patient moves his head to fast.. When asked how much water he drinks, the patient stated that he drinks about 2 bottles of water a day. 10. Double vision - ICD10:H53.2 Patient stated that he has been having double vision. This seems to be a new complaint. Therefore consideration carotid Doppler and a CAT scan of the brain should be noted WE WILL ORDER A CAT SCAN OF THE BRAIN. I, Marycarmen Calle MA, scribing for Dr. Dimitri George. Follow up in: 1 MONTH FOLLOW UP FOR DIZZINESS Prior to entering the room, I reviewed the last progress note including the diagnosis and plan of action. When available, I then reviewed the last heart catheterization, stress test, echocardiogram and EKG. I proceeded to review the medial therapy and any side effects the patient may have had in the past. I was able to look at the last several EKGs. A new EKG was performed today and an interetation was performed. I reviewed its interpretation with the family and compared it to the previous EKGsthat we have in the medical records. Changes were described to the patient. In a pictorial format; I described the NE and QRS intervals. This was to show the effects of antiarrhythmic therapy on the e lectrical system. I was able to look at the past several EKG's. A new EKG was performed today and interpretation was noted. I reviewed this interpretation with the patient, and the family when available, and compared it to the previous EKG's that we have in the medical record. Since my office visit was carried out with a scribe, while in the exam room I was able to devote one hundred percent of my time in [id number] conversation with the patient. I answered all the questions and explained the diagnosis of status post bypass chest discomfort and double vision. Greater that 51% of my time was spent with [id number] conversation with the patient. I have discussed the recommended treatment, alternative therapies and other options in detail. I've discussed the best benefit and side effects of these recommended treatments. I've attempted to answer all the questions to the patient's satisfaction and understanding. With approval, we would recommend an pursuethe current therapy such as set up a stress test and carotid Doppler with CAT scan brain stress test carotid Doppler and CAT scan of the brain. After leaving the exam room, I went back into the patient's chart and coordinated care with my nurse ordering the proper testing and medicinal changes. Letter was performed with voice recognition algorithms and sent to the referring team. The chart was completed. Including the pre-exam, exam and post- exam, the total time spent in the patient's management was greater than 15 minutes I, Dr. Dimitri George, have reviewed and agree with the information in the medical record. Dimitri George DO [facility] of Past illness Narrative* Problem Noted Date Diagnosed Date Resolved Date Chest tightness 05/09/2022 06/16/2023 Preop examination 08/29/2015 06/16/2023 Dizziness 06/16/2023 Chest pain in adult 06/16/20 23 CAD in [place] artery 022 documented as of this encounter (statuses as of 06/21/2023) [facility] History of Past illness Narrative* Problem Noted Date Diagnosed Date Resolved Date Chest tightness 05/09/2022 06/16/2023 Preop examination 08/29/2015 06/16/2023 Dizziness 06/16/2023 Chest pain in adult 06/16/20 23 CAD in [place] artery 022 documented as of this encounter (statuses as of 07/04/2023) [facility] History of Past illness Narrative* Problem Noted Date Diagnosed Date Resolved Date Chest tightness 05/09/2022 06/16/2023 Preop examination 08/29/2015 06/16/2023 Dizziness 06/16/2023 Chest pain in adult 06/16/20 23 CAD in [place] artery 022 documented as of this encounter (statuses as of 07/11/2023) [facility] History of Past illness Narrative* Problem Noted Date Diagnosed Date Resolved Date Chest tightness 05/09/2022 06/16/2023 Preop examination 08/29/2015 06/16/2023 Dizziness 06/16/2023 Chest pain in adult 06/16/20 23 CAD in [place] artery 022 documented as of this encounter (statuses as of 07/29/2023) [facility] of Past illness Narrative* Problem Noted Date Resolved Date CAD in cher[place] artery 05/08/2022 documented as of this encounter (statuses as of 05/10/2022) [facility] of Past illness Narrative* Problem Noted Date Resolved Date CAD in [place] artery 05/08/2022 documented as of this encounter (statuses as of 05/16/2022) [facility] of Past illness Narrative* Problem Noted Date Resolved Date CAD in [place] artery 05/08/2022 documented as of this encounter (statuses as of 05/24/2022) [facility] of Past illness Narrative* Problem Noted Date Resolved Date CAD in [place] artery 05/08/2022 documented as of this encounter (statuses as of 06/01/2022) [facility] of Past illness Narrative* Problem Noted Date Resolved Date CAD in [place] artery 05/08/2022 documented as of this encounter (statuses as of 06/25/2022) [facility] of Past illness Narrative* Problem Noted Date Resolved Date CAD in [place] artery 05/08/2022 documented as of this encounter (statuses as of 06/28/2022) [facility] of Past illness Narrative* Problem Noted Date Resolved Date CAD in [place] artery 05/08/2022 documented as of this encounter (statuses as of 10/08/2022) [facility] of Past illness Narrative* Problem Noted Date Resolved Date CAD in [place] artery 05/08/2022 documented as of this encounter (statuses as of 11/06/2022) [facility] Evaluation + Plan note Future Scheduled Tests Laboratory* Urine Culture 12/19/21 [facility] Evaluation + Plan note Future Appointments Appointment Date:06/27/2022 08:30:00 AM Scheduled Provider:ANDRESSA LOUIS DO Location:[facility] Appointment Type: OV Future Scheduled Tests Laboratory* Urine Culture 12/19/21 [facility] Evaluation note* Diagnosis Essential hypertension, benign- Primary Edema of extremities Edema Bilateral carotid artery stenosis Occlusion and stenosis of carotid artery without mention of cerebral infarction Coronary artery disease involving cher-[place] coronary artery of cher[place]ae [place] heart without angina pectoris Mitral valve prolapse Mitral valve disorders History of stress test Other specified conditions influencing health status Former smoker Personal history of tobacco use, presenting hazards to health Chest tightness Other chest pain Dizziness Dizziness and giddiness Double vision Diplopia [facility] Diagnosis Dizziness- Primary Dizziness and giddiness Coronary artery disease involving cher[place] coronary artery of [place] heart without angina pectoris Essential hypertension, benign Bilateral carotid artery stenosis Occlusion and stenosis of carotid artery without mention of cerebral infarction Mitral valve insufficiency, unspecified etiology History of stress test Other specified conditions influencing health status CAMILO (obstructive sleep apnea) Obstructive sleep apnea (adult) (pediatric) Former smoker Personal history of tobacco use, presenting hazards to health documented in this encounter [facility] note* Diagnosis AF (paroxysmal atrial fibrillation) (HCC)- Primary Atrial fibrillation documented in this encounter [facility] note* Diagnosis Essential hypertension, benign- Primary AF (paroxysmal atrial fibrillation) (HCC) Atrial fibrillation documented in this encounter [facility] note* Diagnosis Nasal congestion- Primary Other diseases of nasal cavity and sinuses documented in this encounter [facility] note* Diagnosis Mitral valve prolapse- Primary Mitral valve disorders CAD in cher[place] artery Coronary atherosclerosis of [place] coronary artery Bilateral carotid artery stenosis Occlusion and stenosis of carotid artery without mention of cerebral infarction Benign hypertension Essential hypertension, benign CAD in [place] artery Coronary atherosclerosis of [place] coronary artery Mitral valve prolapse Mitral valve disorders Nonrheumatic mitral valve regurgitation documented in this encounter [facility] note* Diagnosis [facility]CI current use of anticoagulant- Primary Long-term (current) use of anticoagulants Benign hypertension Essential hypertension, benign CAD in cher-[place] artery Coronary atherosclerosis of [place] coronary artery Mitral valve prolapse Mitral valve disorders Nonrheumatic mitral valve regurgitation documented in this encounter [facility] note* Diagnosis Benign hypertension- Primary Essential hypertension, benign [facility] Narrative No data available for this section [facility] Hospital Discharge instructions No data available for this section [facility] Note* KARAN LEAHY MD: SIGN, VERIFY Event Display: Cardiac Catheterization -CV Authored Date: [id number] [facility] Progress note No data available for this section [facility] Reason for referral (narrative)* Outpatient Procedure (Routine) - Pending Review Specialty Diagnoses / Procedures Referred By Yesenia t Referred To Contact [facility] Diagnoses Essential hypertension, benign Bilateral carotid artery stenosis Coronary artery disease involving cher-[place] coronary artery of cher-[place] heart without angina pectoris Procedures US CAROTID ARTERIES SHANTEL[facility] DUPLEX SCAN EXTRACRANIAL ART COMPL BI STUDY Dimitri George DO [address] [place] [address] [facility] [address] [place] [address] Referral ID Status Reason Start Date Expiration Date Visits Requested Visits Authorized [id number] Pending Review Auto-Generat ed Referral 05/10/2022 05/10/2023 1 1 * Outpatient Procedure (Routine) - Pending Review Specialty Diagnoses / Procedures Referred By Contac t Referred To Contact [facility] Diagnoses Essential hypertension, benign Edema of extremities Chest tightness Dizziness Procedures ECHO ECHO TTHRC R-T 2D W/WOM-MODE COMPL SPEC&COLR D Dimitri George DO [address] [place] [address] [id number] [place] [address] Referral ID Status Reason Start Date Expiration Date Visits Requested Visits Authorized [id number] Pending Review Auto-Generat ed Referral 05/11/2022 05/09/2023 1 1 * Diagnostic Procedure Only (Routine) - Pending Review Specialty Diagnoses / Procedures Referred By Contac t Referred To Contact [facility] Diagnoses Essential hypertension, benign Edema of extremities Chest tightness Dizziness Procedures NM CARDIAC PERF STRESS/EXERCISE MYOCARDIAL SPECT MULTIPLE STUDIES Dimitri George DO [address] [place] [address] [facility] [address] [place] [address] Referral ID Status Reason Start Date Expiration Date Visits Requested Visits Authorized [id number] Pending Review Auto-Generat ed Referral 05/10/2022 06/08/2023 1 1 * MRI/CT (Routine) - Pending Review Specialty Diagnoses / Procedures Referred By Contac t Referred To Contact CT IMAGING Diagnoses Dizziness Double vision Procedures CT BRAIN WO IVCON CT HEAD/BRAIN W/O CONTRAST MATERIAL Dimitri George DO [address] [place] [address] Ct [facility] Referral ID Status Reason Start Date Expiration Date Visits Requested Visits Authorized [id number] Pending Review Auto-Generat ed Referral 05/10/2022 06/08/2023 1 1 * Outpatient Procedure (Routine) - Closed Specialty Diagnoses / Procedures [facility] Diagnoses Essential hypertension, benign Procedures ECG COMPLETE ECG ROUTINE ECG W/LEAST 12 LDS W/I&R Dimitri George DO [address] [place] [address] [address] Referral ID Status Reason Start Date Expiration Date V isits Requested Visits Authorized [id number] Closed Auto-Generate d Referral 05/08/2022 05/08/2023 1 1 [facility] for referral (narrative)* Outpatient Procedure (Routine) - Closed Specialty Diagnoses / Procedures [facility] Diagnoses Essential hypertension, benign Procedures ECG COMPLETE ECG ROUTINE ECG W/LEAST 12 LDS W/I&R Dimitri George DO [address] [place] [address] [address] Referral ID Status Reason Start Date Expiration Date V isits Requested Visits Authorized [id number] Closed Auto-Generate d Referral 06/20/2022 06/20/2023 1 1 [facility] for referral (narrative)* Outpatient Procedure (Routine) - Closed Specialty Diagnoses / Procedures Referred By Contac t Referred To Contact [facility] Diagnoses AF (paroxysmal atrial fibrillation) (HCC) Procedures ECG COMPLETE ECG ROUTINE ECG W/LEAST 12 LDS W/I&R Dimitri George DO [address] [place] [address] [facility] [address] [place] [address] Referral ID Status Reason Start Date Expiration Date V isits Requested Visits Authorized [id number] Closed Auto-Generate d Referral 06/08/2022 06/08/2023 1 1 [facility] Outpatient Procedure (Routine) - Pending Review Specialty Diagnoses / Procedures Referred By Yesenia arvizu Referred To [facility] Diagnoses CAD in cher-[place] artery Procedures ECG COMPLETE ECG ROUTINE ECG W/LEAST 12 LDS W/I&R Leonarod Nettles APRN.WINDOW DECORATOR [address] [facility] [address] [place] [address] [facility] [address] [place] [address] Referral ID Status Reason Start Date Expiration Date Visits Requested Visits Authorized [id number] Pending Review Auto-Generat ed Referral 07/03/2023 07/02/2024 1 1 [facility] Summary Purpose Family History No Family History Records FoundNo Family History Records FoundNo Family History Records FoundNo Family History Records Found Advance Directives No Advanced Directives Records FoundNo Advanced Directives Records FoundNo Advanced Directives Records FoundNo Advanced Directives Records Found Reason for Referral Specialty Diagnoses / Procedures Referred By Yesenia arvizu Referred To Contact Otolaryngology Diagnoses Nasal congestion Federico Barboza MD [address] [facility] [address] [place] [address] Kirt Plata MD [facility] [address] [address] Referral ID Status Reason Start Date Expiration Date V isits Requested Visits Authorized [id number] Authorized 10/17/2022 10/17/2023 1 1 Additional Source Comments Care Team (unrecognized sect ion and content) Casting Operator Relationship Specialty Start Date End Date Marilyn Felton, LIZ.WINDOW DECORATOR [address] [place] [address] PCP - General Family Medicine 06/16/21 Casting Operator Relationship Specialty Start Date End Date Marilyn Felton LEAD INJECTION MOLD TECHNICIAN.WINDOW DECORATOR [address] [place] [address] PCP - General Family Medicine 06/16/21 Casting Operator Relationship Specialty Start Date End Date Marilyn Felton LEAD INJECTION MOLD TECHNICIAN.WINDOW DECORATOR [address] [place] [address] PCP - General Family Medicine 06/16/21 Casting Operator Relationship Specialty Start Date End Date Marilyn Felton, LEAD INJECTION MOLD TECHNICIAN.WINDOW DECORATOR [address] [place] [address] PCP - General Family Medicine 06/16/21 Casting Operator Relationship Specialty Start Date End Date Marilyn Felton, LEAD INJECTION MOLD TECHNICIAN.WINDOW DECORATOR [address] [place] [address] PCP - General Family Medicine 06/16/21 Casting Operator Relationship Specialty Start Date End Date Marilyn Felton, LEAD INJECTION MOLD TECHNICIAN.WINDOW DECORATOR [address] [place] [address] PCP - General Family Medicine 06/16/21 Casting Operator Relationship Specialty Start Date End Date Darion Bennett MD [address] [place] [address] PCP - General Family Medicine 10/17/22 Federico Barboza MD [address] [address] Covering Neurologist Psychiatry 10/17/22 Casting Operator Relationship Specialty Start Date End Date Marilyn Felton, LEAD INJECTION MOLD TECHNICIAN.WINDOW DECORATOR [address] [place] [address] PCP - General Family Medicine 06/16/21 Casting Operator Relationship Specialty Start Date End Date Marilyn Felton, LEAD INJECTION MOLD TECHNICIAN.WINDOW DECORATOR [address] [place] [address] PCP - General Family Medicine 06/16/21 Casting Operator Relationship Specialty Start Date End Date Marilyn Felton, LEAD INJECTION MOLD TECHNICIAN.WINDOW DECORATOR [address] [place] [address] PCP - General Family Medicine 06/16/21 Casting Operator Relationship Specialty Start Date End Date Marilyn Felton, LEAD INJECTION MOLD TECHNICIAN.WINDOW DECORATOR [address] [place] [address] PCP - General Family Medicine 06/16/21 Casting Operator Relationship Specialty Start Date End Date Marilyn Felton, LEAD INJECTION MOLD TECHNICIAN.WINDOW DECORATOR [address] [place] [address] PCP - General Family Medicine 06/16/21 Source Comments (unrecognize d section and content) In the event this informatio n is protected by the Federal Confidentiality of Alcohol and Drug Abuse Patient Records regulations: The Federal rules restrict any use of the information to criminally investigate or prosecute any alcohol or drug abuse patient.[facility] the event this information is protected by the Federal Confidentiality of Alcohol and Drug Abuse Patient Records regulations: The Federal rules restrict any use of the information to criminally investigate or prosecute any alcohol or drug abuse patient.[facility] the event this information is protected by the Federal Confidentiality of Alcohol and Drug Abuse Patient Records regulations: The Federal rules restrict any use of the information to criminally investigate or prosecute any alcohol or drug abuse patient.[facility] Center[facility] the event this information is protected by the Federal Confidentiality of Alcohol and Drug Abuse Patient Records regulations: The Federal rules restrict any use of the information to criminally investigate or prosecute any alcohol or drug abuse patient.[facility] Center[facility] the event this information is protected by the Federal Confidentiality of Alcohol and Drug Abuse Patient Records regulations: The Federal rules restrict any use of the information to criminally investigate or prosecute any alcohol or drug abuse patient.[facility] Center[facility] the event this information is protected by the Federal Confidentiality of Alcohol and Drug Abuse Patient Records regulations: The Federal rules restrict any use of the information to criminally investigate or prosecute any alcohol or drug abuse patient.[facility] Center[facility] the event this information is protected by the Federal Confidentiality of Alcohol and Drug Abuse Patient Records regulations: The Federal rules restrict any use of the information to criminally investigate or prosecute any alcohol or drug abuse patient.[facility] Center[facility] the event this information is protected by the Federal Confidentiality of Alcohol and Drug Abuse Patient Records regulations: The Federal rules restrict any use of the information to criminally investigate or prosecute any alcohol or drug abuse patient.[facility] Center[facility] the event this information is protected by the Federal Confidentiality of Alcohol and Drug Abuse Patient Records regulations: The Federal rules restrict any use of the information to criminally investigate or prosecute any alcohol or drug abuse patient.[facility] Center[facility] the event this information is protected by the Federal Confidentiality of Alcohol and Drug Abuse Patient Records regulations: The Federal rules restrict any use of the information to criminally investigate or prosecute any alcohol or drug abuse patient.[facility] Center[facility] the event this information is protected by the Federal Confidentiality of Alcohol and Drug Abuse Patient Records regulations: The Federal rules restrict any use of the information to criminally investigate or prosecute any alcohol or drug abuse patient.[facility] Center[facility] the event this information is protected by the Federal Confidentiality of Alcohol and Drug Abuse Patient Records regulations: The Federal rules restrict any use of the information to criminally investigate or prosecute any alcohol or drug abuse patient.[facility] Reason for Visit (unrecogniz ed section and content) Reason Comments Insurance Authorization Reason Comments Results Reason Comments Established Patient Follow-Up 1 month fo llow up for Dizziness Reason Comments EKG EKG after starting S otalol 80 mg BID Reason Comments Patient Question Reason Comments Orders Reason Comments Refill Request Reason Comments Follow Up Reason Comments Med Change Request Care Team (unrecognized sect ion and content) Care Team Personnel Name: Kevin Arenas Clerroberto Gana PT Position: P3 Scheduling - Communications Professor Advanced Member Role: Other Name: MARILYN FELTON Position: P4 Advanced Practice Nurse Med Service: Active Provider Member Role: Primary Care Physician Address: Address: [address] [place] [address]- Care Team Related Persons Name: ANGEL JACOBSON Address: Home [address] [place], [place] [id number] [place] Care Team Personnel Name: Kevin Arenasrroberto Ballesteros PT Position: P3 Scheduling - Communications Professor Advanced Member Role: Other Name: MARILYN FELTON Position: P4 Advanced Practice Nurse Med Service: Active Provider Member Role: Primary Care Physician Address: Address: [address] [place] [address]- Care Team Related Persons Name: ANGEL JACOBSON Address: Home [address] [place], [place] [id number] [place] Care Team Personnel Name: Kevin Arenas PT Position: P3 Scheduling - Communications Professor Advanced Member Role: Other Name: MARILYN FELTON Position: P4 Advanced Practice Nurse Med Service: Active Provider Member Role: Primary Care Physician Address: Address: [address] [place] [address]- Care Team Related Persons Name: ANGEL JACOBSON Address: Home [address] [place], [place] [id number] [place] Care Team Personnel Name: Kevin Arenas Clerroberto Gana PT Position: P3 Scheduling - Communications Professor Advanced Member Role: Other Name: MARILYN FELTON Position: P4 Advanced Practice Nurse Member Role: Primary Care Physician Address: Address: [address] [place] [id number] [place] [address] Care Team Related Persons Name: ANGEL JACOBSON Address: Home [address] [place], [place] [id number] [place] Care Team Personnel Name: Kevin Arenas Clerk Lesli PT Position: P3 Scheduling - Communications Professor Advanced Member Role: Other Name: MARILYN FELTON Position: P4 Advanced Practice Nurse Member Role: Primary Care Physician Address: Address: [address] [place] [address]- Care Team Related Persons Name: ANGEL JACOBSON Address: Home [address] [place], [place] [id number] [place] Care Team Personnel Name: Kevin Arenas Clerk Lesli PT Position: P3 Scheduling - Communications Professor Advanced Member Role: Other Name: MARILYN FELTON Position: P4 Advanced Practice Nurse Member Role: Primary Care Physician Address: Address: [address] [place] [address] Care Team Related Persons Name: ANGEL JACOBSON Address: Home [address], [place] [id number] [place] Care Team Personnel Name: Kevin Arenas Clerk Lesli PT Position: P3 Scheduling - Communications Professor Advanced Member Role: Other Name: MARILYN FELTON Position: P4 Advanced Practice Nurse Member Role: Primary Care Physician Address: Address: [address] [place] [address]- Care Team Related Persons Name: ANGEL JACOBSON Address: Home [address], [place] [id number] [place] Care Team Personnel Name: Kevin Arenas Clerk Lesli PT Position: P3 Scheduling - Communications Professor Advanced Member Role: Other Name: MARILYN FELTON Position: P4 Advanced Practice Nurse Member Role: Primary Care Physician Address: Address: [address] [place] [address]- Care Team Related Persons Name: ANGEL JACOBSON Address: Home [address], [place] [phone] [place] (unrecognized sect ion and content) No Status Records FoundNo Status Records FoundNo Status Records FoundNo Status Records Found INFORMATION SOURCE (unrecogn ized section and content) DATE CREATED AUTHOR AUTHOR'S ORGANIZ ATION 11/07/2022 [facility] DATE CREATED AUTHOR AUTHOR'S ORGANIZ ATION 11/19/2022 [facility] DATE CREATED AUTHOR AUTHOR'S ORGANIZ ATION 07/30/2023 [facility] nter FOR RECORDS PERTAINING TO PATIENTS WHO ARE OR HAVE BEEN ENROLLED IN A CHEMICAL DEPENDENCY/SUBSTANCEABUSE PROGRAM, SOME INFORMATION MAY BE OMITTED. This clinical summary was aggregated from multiple sources. Caution should be exercised in using it in the provision of clinical care. This summary normalizes information from multiple sources, and as a consequence, information in this document may materially change the coding, format and clinical context of patient data. In addition, data may be omitted in some cases. CLINICAL DECISIONS SHOULD BE BASED ON THE PRIMARY CLINICAL RECORDS. [employer] provides no warranty or guarantee of the accuracy or completeness of information in this document.
[2023-10-01 09:28] LABS: Absolute Lymphocyte Count 1.91 X10^3/uL (0.83-4.51); Absolute Neutrophil Count 4.2 X10^3/uL (2.0-7.7); Basophil# 0.04 X10^3/uL; Basophil% 0.6 % (0-1); Eosinophil# 0.18 X10^3/uL; Eosinophils% 2.5 % (0-5); Hematocrit 41.4 % (40-54); Lymphocyte # 1.91 X10^3/ul (0.83-4.51); Lymphocyte % 26.8 % (19-41); Mean Corp Hgb Conc 33.8 g/dL (32-36); Mean Corpuscular Hgb 30.8 pg (27.0-32.0); Mean Corpuscular Volume 91.2 fL (80-94); Mean Platelet Vol. 10.2 fl (6.2-12.0); Monocyte# 0.72 X10^3/uL; Monocyte% 10.1 % (0-10); NRBC Flagged by Analyzer 0 % (0-5); Neutrophil # 4.21 X10^3/uL (2.7-7.7); Neutrophil % 59.2 % (47-70); Platelet Count 232 K/mm3 (150-450); RBC Distribution Width CV 13.1 % (11.6-14.6); RBC Distribution Width SD 43.3 fl (35.1-43.9); RET-HE 34.4 pg (30-35); Red Blood Count 4.54 M/mm3 (4.6-6.2); Reticulocyte Count 1.97 % (0.5-1.5); White Blood Count 7.1 K/mm3 (4.4-11.0)
[2023-10-01 09:36] LABS: Erythrocyte Sedimentation Rate 21 mm/hr (0-20)
[2023-10-01 10:35] LABS: ALB/GLOB Ratio 1.1 RATIO (0.9-2.4); AST(SGOT) 16 U/L (15-37); Alanine Aminotransfer ALT/SGPT 31 U/L (16-61); Albumin, Serum 3.9 g/dL (3.2-5.0); Alkaline Phosphatase 99 U/L (45-117); Anion Gap 3 (5-15); BUN 23 mg/dL (7-18); BUN/Creat Ratio 16.8 RATIO (10-20); Chloride 106 mmol/L (98-107); Creatinine, Serum 1.37 mg/dL (0.70-1.30); EST Glomerular Filtration Rate 54 mL/min (>60); Est Glom Filt Rate - Afr Amer 65 mL/min (>60); Ferritin 359 ng/mL (26-388); Globulin 3.5 g/dL (2.2-4.2); Glucose 96 mg/dL (74-106); Iron 77 ug/dL (65-175); Iron Binding Capacity,Total 335 ug/dL (250-450); LDH 179 U/L (87-241); Protein, Total 7.4 g/dL (6.4-8.2); Sodium Level 135 mmol/L (136-145); Uric Acid 6.8 mg/dL (3.5-7.2)
[2023-10-01 10:48] LABS: CRP < 2.90 mg/L (0.0-3.0)
[2023-10-02 19:07] LABS: Albumin 4.1 g/dL (2.9-4.4); Alpha-1-Globulins 0.1 g/dL (0.0-0.4); Alpha-2-Globulins 0.9 g/dL (0.4-1.0); Free Kappa Light Chains 22.5 mg/L (3.3-19.4); Free Lambda Light Chains 13.5 mg/L (5.7-26.3); Gamma Globulin 0.6 g/dL (0.4-1.8); Immunoglobulin A 179 mg/dL (61-437); Immunoglobulin G 807 mg/dL (603-1613); Immunoglobulin M 60 mg/dL (15-143); PROEL- TOTAL PROTEIN 6.8 g/dL (6.0-8.5)
== END | disposition home or self-care (01) ==
LOC: LAB 08:34
PROVIDERS: PCP Student in an Organized Health Care Education/Training Program; Referring Provider Internal Medicine Medical Oncology; Visit Provider Internal Medicine Medical Oncology
DX: D64.9 Anemia, unspecified (principal); R77.8 Other specified abnormalities of plasma proteins; K22.70 Barrett's esophagus without dysplasia; M25.532 Pain in left wrist
CPT/HCPCS: 36415; 80053; 82728; 82784; 83540; 83550; 83615; 83883; 84165; 84550; 85025; 85045; 85652; 86140; 86334

== ENCOUNTER → 2024-10-05 | Outpatient (CLI) | payer MEDICARE, SELFPAY ==
[2024-10-05 09:27] LABS: PSA,Total - Annual Screen 6.38 ng/mL (0.00-4.00)
== END | disposition home or self-care (01) ==
PROVIDERS: PCP Nurse Practitioner Primary Care; Referring Provider Nurse Practitioner; Visit Provider Nurse Practitioner
DX: Z12.5 Encounter for screening for malignant neoplasm of prostate (principal)
CPT/HCPCS: 36415; 84153; G0103

== ENCOUNTER → 2024-12-01 | Outpatient (CLI) | payer MEDICARE, SELFPAY ==
--- NOTE | 2024-12-01 08:01 | MRI_ITS ---
EXAM: Noncontrast MRI of the right shoulder. CLINICAL HISTORY: Nontraumatic right shoulder pain. COMPARISON: Right shoulder radiographs 11/05/2024 TECHNIQUE: Multi planar, multisequence MRI images of the right shoulder were obtained without IV contrast. FINDINGS: There are ghinbwtu-xy-iquqzo degenerative changes of the right acromioclavicular and glenohumeral joints. No acute fracture or dislocation of the right shoulder. There is spurring of the inferior right acromioclavicular joint, causing mass effect on the myotendinous junction of the supraspinatus. Mild atrophy of the supraspinatus muscle. No Hill-Sachs lesion or bony Bankart deformity. Mild subcortical cystic changes of the superolateral right humeral head. There is some mild heterogeneous increased signal of the posterior superior labrum. The extra-articular portion of the long head of the biceps tendon appears intact. No right axillary mass or adenopathy. No os acromiale. No significant fluid signal in the subacromial/subdeltoid bursa. The distal subscapularis tendon is intact. There is moderate patchy tendinopathy of the distal infraspinatus and supraspinatus tendons. No retracted full-thickness rotator cuff tear is demonstrated. There is a 50% thickness undersurface tear of the anterior insertional fibers of the distal supraspinatus tendon on image 13 of the coronal T2 fat saturated sequence. MRI/Upper Ext Joint Only(Routine) IMPRESSION: No acute bony abnormality of the right shoulder. Flysjjnq-sx-oxgfef degenerati ve changes of the right acromioclavicular and glenohumeral joints. Inferior spurring of the right acromioclavicular joint causes mass effect on th e myotendinous junction of the supraspinatus muscle. Moderate patchy tendinopathy of the distal infraspinatus and supraspinatus tend ons. 50% undersurface tear of the distal tear insertional fibers of the supraspinatus tendon. No retracted full-thickness ro tator cuff tear. Some heterogeneous signal of the posterior/superior labrum could be due to labr al tear versus labral degeneration. The long head of the biceps tendon appears intact. Reading Location: [facility]
== END | disposition home or self-care (01) ==
PROVIDERS: PCP Nurse Practitioner Primary Care; Referring Provider Orthopaedic Surgery Sports Medicine; Visit Provider Orthopaedic Surgery Sports Medicine
DX: M25.511 Pain in right shoulder (principal)
CPT/HCPCS: 73221

== ENCOUNTER → 2024-12-04 | Outpatient (CLI) | payer MEDICARE, SELFPAY ==
--- NOTE | 2024-12-04 08:35 | CDU_ITS ---
Reason For Study Reason For Study: Visual disturbances Rt. Velocities/BP Lt. Velocities/BP Prox CCA 57.9/8.8 cm/sec. Prox CCA 85.1/15.7 cm/sec. Mid CCA 54.1/10.7 cm/sec. Mid CCA 60.5/11.4 cm/sec. Dist CCA 56.0/13.5 cm/sec. Dist CCA 58.9/12.6 cm/sec. Prox ICA 54.1/11.6 cm/sec. Prox ICA 55.1/14.5 cm/sec. Mid ICA 115.6/20.6 cm/sec. Mid ICA 59.7/14.9 cm/sec. Dist ICA 57.5/14.6 cm/sec. Dist ICA 61.7/15.4 cm/sec. Rt. ICA/CCA = 2.1. Lt. ICA/CCA = 1.0. Prox ECA 73.0/8.8 cm/sec. Prox ECA 119.3/11.5 cm/sec. Rt. Vert. 92.4/12.1 cm/sec. Lt. Vert. 59.1/8.3 cm/sec. Right Extracranial There is intimal thickening but no significant atherosclerotic plaque noted in the right common carotid artery. There is heterogeneous, irregular atherosclerotic plaque noted in the right internal carotid artery. There is intimal thickening but no significant atherosclerotic plaque noted in the right external carotid artery. Antegrade flow is noted in the right vertebral artery. Left Extracranial There is intimal thickening but no significant atherosclerotic plaque noted in the left common carotid artery. There is heterogeneous, irregular atherosclerotic plaque noted in the left internal carotid artery. The atherosclerotic plaque causes acoustic shadowing. There is intimal thickening but no significant atherosclerotic plaque noted in the left external carotid artery. Antegrade flow is noted in the left vertebral artery. Procedure Carotid Duplex 60745. This is a Carotid Duplex examination using B-mode, color flow and specral Doppler. Exam performed in department. VL/Carotid Duplex Ultrasound Interpretation Summary Mild (<50%) stenosis right extracranial internal carotid. Mild (<50%) stenosis left extracranial internal carotid. Patent and antegrade vertebrals bilaterally. Ordering Physician: Henry Guillermo Referring Physician: Henry Guillermo M.D. Performed By: Nelida Zarco RVT
== END | disposition home or self-care (01) ==
LOC: CVS 08:33
PROVIDERS: PCP Nurse Practitioner Primary Care; Referring Provider Ophthalmology; Visit Provider Ophthalmology
DX: H53.10 Unspecified subjective visual disturbances (principal)
CPT/HCPCS: 93880

== ENCOUNTER → 2024-12-15 | Outpatient (CLI) | payer MEDICARE, SELFPAY ==
--- NOTE | 2024-12-15 11:14 | NEURO ---
NCS and/or EMG Patient Report Ordering Doctor: Eliseo Apple DATE OF SERVICE: 12/15/24 Clinical Summary: 74 year old male patient presenting with symptoms of numbness in the left hand. Nerve Conduction Studies Summary: Nerve conduction studies were performed in the left upper extremity. The left median-D2 SNAP distal latency was prolonged. The left median-APB CMAP distal latency was prolonged. Needle Examination Summary: Needle examination of select muscles of the left upper extremity was normal. Impression: This is an abnormal study. There is electrodiagnostic evidence of a moderate, left median mononeuropathy at the wrist (carpal tunnel syndrome), with sensory and motor fiber demyelination There is no electrodiagnostic evidence of a left ulnar mononeuropathy or cervical radiculopathy. Multi Select Codes Neurology Neurology Interp Codes: 16613-92 Musc test done w/n test comp (interp) (1) and 68485-14 Nrv cndj test 7-8 studies (interp)
== END | disposition home or self-care (01) ==
LOC: PSN 10:03
PROVIDERS: PCP Nurse Practitioner Primary Care; Referring Provider Orthopaedic Surgery Sports Medicine; Visit Provider Orthopaedic Surgery Sports Medicine
DX: G56.02 Carpal tunnel syndrome, left upper limb (principal)
CPT/HCPCS: 95886; 95910

== ENCOUNTER 2025-03-17 09:58 | Day surgery (SDC) | payer MEDICARE, SELFPAY ==
--- NOTE | 2025-03-02 21:04 | PAT.ANE_ITS ---
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 When Was Last Pacemaker Check QUESTION #4 FULL TEXT: You/Your Family Experience fever (hyperthermia) with Anesthesia Last Oral Intake Last Oral intake: Last Oral Intake NPO since Meds taken in AM with sips of water? Meds patient instructed to take am of surgery PONV PONV - calcine furnace loader: PONV - calcine furnace loader Female No 02/22/25 11:49 HX of Motion Sickness No 02/22/25 11:49 HX of N/V After Surgery No 02/22/25 11:49 Non-Smoker Yes 02/22/25 11:49 Duration of Surgery greater No 02/22/25 11:49 than 60 minutes Number of Risk Factors 1 02/22/25 11:49 PONV Score Low Risk 02/22/25 11:49 Height & Weight Height & Weight: Anesthesia: Height & Weight Height 5 ft 9 in 01/15/25 07:54 Respiratory Assessment Respiratory Assessment - calcine furnace loader: Respiratory Tract Infection Hx - calcine furnace loader Hx Respiratory Tract Infection No 02/22/25 11:49 STOP Sleep Apnea STOP Sleep Apnea - calcine furnace loader: STOP Sleep Apnea - calcine furnace loader Hx Hypertension Yes: on meds 02/22/25 11:49 Hx Sleep Apnea No 02/22/25 11:49 CPAP BIPAP Do you snore loudly (louder No 02/22/25 11:49 than talking or can be heard Do you often feel tired/ No 02/22/25 11:49 fatigued/ sleepy during daytime? Has anyone observed you stop No 02/22/25 11:49 breathing during sleep? STOP Results Negative 02/22/25 11:49 QUESTION #5 FULL TEXT : Do you snore loudly (louder than talking or can be heard through closed doors)? 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 Specify any problems Hx of Preganancy in last 3 N/A 02/22/25 11:49 Months Nurse Filling Out Transfusion JZOSHANE 02/22/25 11:49 & Questions: Date: 02/22/25 02/22/25 11:49 Time: 11:51 02/22/25 11:49 Patient unable to answer at this time (ie. confused, unrespo /Reproduction History /Reproductive History - calcine furnace loader: /Reproductive Hx- calcine furnace loader Hx Now No 02/22/25 11:49
--- NOTE | 2025-03-02 21:04 | PAT.ANESEVAL ---
Pre-Assessment Diagnosis/Proposed Procedure Planned Operative Procedure(s): (L) Left Endoscopic Carpal Tunnel Release Anesthesia History Anesthesia History - flat folder: Anesthesia History - flat folder Hx Hospitalization No 02/22/25 11:49 Any Problems With Anesthesia No 02/22/25 11:49 Cholinesterase deficiency No 02/22/25 11:49 You/Your Family Experience No 02/22/25 11:49 fever (hyperthermia) with Relationship Recent Exposure to Contagious No 05/20/23 06:01 Disease Does patient have nerve No 02/22/25 11:49 stimulator Patient instructed to have device shut off --Does patient have Pacemaker or ICD? When Was Last Pacemaker Check QUESTION #4 FULL TEXT: You/Your Family Experience fever (hyperthermia) with Anesthesia Last Oral Intake Last Oral intake: Last Oral Intake NPO since Meds taken in AM with sips of water? Meds patient instructed to take am of surgery PONV PONV - flat folder: PONV - flat folder Female No 02/22/25 11:49 HX of Motion Sickness No 02/22/25 11:49 HX of N/V After Surgery No 02/22/25 11:49 Non-Smoker Yes 02/22/25 11:49 Duration of Surgery greater No 02/22/25 11:49 than 60 minutes Number of Risk Factors 1 02/22/25 11:49 PONV Score Low Risk 02/22/25 11:49 Height & Weight Height & Weight: Anesthesia: Height & Weight Height 5 ft 9 in 01/15/25 07:54 Respiratory Assessment Respiratory Assessment - flat folder: Respiratory Tract Infection Hx - flat folder Hx Respiratory Tract Infection No 02/22/25 11:49 STOP Sleep Apnea STOP Sleep Apnea - flat folder: STOP Sleep Apnea - flat folder Hx Hypertension Yes: on meds 02/22/25 11:49 Hx Sleep Apnea No 02/22/25 11:49 CPAP BIPAP Do you snore loudly (louder No 02/22/25 11:49 than talking or can be heard Do you often feel tired/ No 02/22/25 11:49 fatigued/ sleepy during daytime? Has anyone observed you stop No 02/22/25 11:49 breathing during sleep? STOP Results Negative 02/22/25 11:49 QUESTION #5 FULL TEXT : Do you snore loudly (louder than talking or can be heard through closed doors)? Tobacco Use History Tobacco Use History - flat folder: Tobacco Use History - flat folder Tobacco Use Smoking Status Never smoker 02/22/25 11:49 Hx Tobacco Use No 02/22/25 11:49 Years Smoking Packs Smoked per Day Smoking Cessation Date was within the last 15 years Hx Smoking Cessation Date Hx Smoking Cessation Counseling Hematologic Medial History Hematologic Hx - flat folder: Hematologic Medical Hx - clinical documentation spec Hx of Blood Transfusion No 02/22/25 11:49 Hx of Transfusion in last 3 No 02/22/25 11:49 Months Date of Last Transfusion (if within last 3 months) Ever experience any problems No 02/22/25 11:49 with transfusion(s)? Specify any problems Hx of Preganancy in last 3 N/A 02/22/25 11:49 Months Nurse Filling Out Transfusion [email or web address] 02/22/25 11:49 & Questions: Date: 02/22/25 02/22/25 11:49 Time: 11:51 02/22/25 11:49 Patient unable to answer at this time (ie. confused, unrespo /Reproduction History /Reproductive History - flat folder: /Reproductive Hx- flat folder Hx Now No 02/22/25 11:49 Gestational Age (in weeks): EDC: Hx Hx Para Hx Section SAB No 02/22/25 11:49 Active Medications Active Medications: Current Medications Generic Name Dose Route Start Last Admin Trade Name Freq PRN Reason Stop Dose Admin Cefazolin Sodium 2 gm/ Sodium 110 mls @ 200 mls/hr 03/03/25 09:55 Chloride IV 03/03/25 10:27 INTRAOP [facility] Medical History (Updated 02/22/25 @ 11:49 by Alexa Guerrero) Anxiety Depression Easy bruising Impingement of right shoulder 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 Primary osteoarthritis, right shoulder Left carpal tunnel syndrome Trigger finger, left ring finger Right shoulder pain Loss of hearing Wears glasses Wears partial dentures Cancer Arthritis Syncope Difficulty swallowing Gastric reflux Non-smoker Leg cramps History of pain when walking History of edema History of echocardiogram History of atrial fibrillation History of stress test Cardiology follow-up encounter Hypertension Hx of hiatal hernia Unintentional weight loss 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 Left coronary artery occlusion MVP (mitral valve prolapse) Hypercholesterolemia CTS (carpal tunnel syndrome) BPH (benign prostatic hyperplasia) Back pain Albarran esophagus Aortic valve sclerosis Dizziness Fatty liver Epigastric pain GERD (gastroesophageal reflux disease) Home Medications ?Medication ?Instructions ?Recorded ?Last Taken ?Type magnesium 1 tab PO DAILY 05/17/23 Unknown History amlodipine 5 mg tablet 5 mg PO QDAY 11/05/24 Unknown History atorvastatin 40 mg tablet 40 mg PO QDAY 11/05/24 Unknown History carvedilol 25 mg tablet 50 mg PO BID 11/05/24 Unknown History doxazosin 4 mg tablet 4 mg PO QHS 11/05/24 Unknown History quetiapine 50 mg tablet 50 mg PO .qd 11/05/24 Unknown History rivaroxaban 10 mg tablet (Xarelto) 20 mg PO DAILY 11/05/24 Unknown History multivitamin 1 tab PO DAILY 02/22/25 Unknown History pantoprazole 40 mg tablet,delayed 40 mg PO DAILY 02/22/25 Unknown History release vitamin D3 20 mcg-vit K2 180 tab PO 02/22/25 Unknown History mcg-calcium fructoborate 216 mg tablet vitamins A,C,O-ojkc-cvokdg 4,296 1 cap PO DAILY 02/22/25 Unknown History mcg-226 mg-90 mg capsule (PreserVision AREDS) Allergy/AdvReac Type Severity Reaction Status Date / Time fentanyl Allergy Rash Verified 02/22/25 11:33 Family History Father Alzheimers disease Prostate cancer Brother Colon cancer Pulmonary embolism Sister Diabetes Alzheimers disease Surgical History History of cardiac catheterization Hx of colonoscopy History of esophagogastroduodenoscopy (EGD) Hx of arthroscopy of shoulder S/P CABG x 2 Social History household members: spouse and children Smoking Status: Never smoker Electronic Cigarette Use: not used second hand exposure: No alcohol intake: never substance use type: does not use what type of physical activity do you participate in: walking Audit: Pertinent Findings Pertinent Findings EKG Perinent findings: July 08, 2024. Sinus bradycardia 54 bpm. Left axis deviation. Right bundle branch block. No significant change from July 03, 2023. Stress test pertinent findings: February 25, 2025. LVEF is 47%. No regional wall motion abnormalities are present. No ischemia or scar. Echo (EF%) pertinent findings: 06/03/2022. EF of 50 to 55%. Heart catheterization pertinent findings: 06/02/2022. CHURCHILL to the LAD patent. SVG to the first OM patent. Consult pertinent findings: 07/08/2024. Tho RUSSELL. 1. Benign hypertension-blood pressure controlled on chronic medications. 2. Coronary artery disease in [place] artery. Two-vessel bypass in 2014. Cardiac cath in 2021 shows patent grafts. Patient does have noncardiac chest pain reproducible with movement. 3. Paroxysmal atrial flutter-maintaining sinus rhythm on carvedilol. 4. Long-term current use of anticoagulant?Xarelto-no complaints of bleeding. Continue med management. 5. Mitral valve prolapse-not seen on latest echo of 2021. 6. Sinus bradycardia-chronic?asymptomatic. On Coreg. Continue to monitor. Recommendation Anesthesia Recommendation Anesthesia recommendation: OPTIMIZED for anesthesia
[2025-03-17] VITALS (9 sets, daily range): BP systolic 102–135; BP diastolic 54–74; PULSE 52–58; RESP 16–18; TEMP 36–36.6; O2SAT 92–99; BMI 26.5
[2025-03-17] MEDS: Lactated Ringers 1,000 ML 15 ML IV (10:40)
--- NOTE | 2025-03-17 11:01 | PRE.ANES_ITS ---
ASA Classification* ASA Classification ASA Classification: 3 Assessment & Plan Anesthesia* Anesthesia Assessment Anesthesia Assessment: Discussed sedation and/or anesthesia options, risks, benefits, and alternatives with patient/parents/legal guardian/POA. Questions invited. The patient/parents/legal guardian/POA seems to understand and agrees to proceed with anesthesia plan. Reviewed the physical assessment, medical history, allergy history and patient home medications list prior to surgery/procedure/anesthetic and documented any changes. Performed airway and anesthesia risk assessments. Anesthesia Type Anesthesia Type: MAC (General anesthesia as a backup.) History Source History Obtained from:: Patient and Chart Anesthesia Focused Assessment* Temperature: 97.8 F Pulse Rate: 57 Blood Pressure: 135/66 Respiratory Rate: 18 Pulse Ox: 97 Oxygen Delivery Method: Room Air Airway Assessment Mouth opens: >3 cm Mallampati Score: I Teeth Condition: Partial (Patient has upper and lower partials. They are both out.) Neck Range of motion (ROM): Limited ROM (Slight Decrease) Labs Anesthesia Preop lab: CBC WBC 7.1 K/mm3 (4.4-11.0) 10/01/23 08:36 10/01/23 RBC 4.54 M/mm3 (4.6-6.2) L 10/01/23 08:36 10/01/23 Hgb 14.0 g/dL (13.0-16.5) 10/01/23 08:36 10/01/23 Hct 41.4 % (40-54) 10/01/23 08:36 10/01/23 Plt Count 232 K/mm3 (150-450) 10/01/23 08:36 10/01/23 CHEMISTRY Potassium 4.0 mmol/L (3.5-5.1) 10/01/23 08:36 10/01/23 Sodium 135 mmol/L (136-145) L 10/01/23 08:36 10/01/23 BUN 23 mg/dL (7-18) H 10/01/23 08:36 10/01/23 Creatinine 1.37 mg/dL (0.70-1.30) H 10/01/23 08:36 Glucose 96 mg/dL (74-106) 10/01/23 08:36 10/01/23 COAG Pre-Assessment Diagnosis/Proposed Procedure Planned Operative Procedure(s): (L) Left Endoscopic Carpal Tunnel Release Anesthesia History 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 When Was Last Pacemaker Check QUESTION #4 FULL TEXT: You/Your Family Experience fever (hyperthermia) with Anesthesia Last Oral Intake Last Oral intake: Last Oral Intake NPO since 21:30 03/17/25 10:26 Meds taken in AM with sips of Yes 03/17/25 10:26 water? 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 artist Female No 02/22/25 11:49 HX of Motion Sickness No 02/22/25 11:49 HX of N/V After Surgery No 02/22/25 11:49 Non-Smoker Yes 02/22/25 11:49 Duration of Surgery greater No 02/22/25 11:49 than 60 minutes Number of Risk Factors 1 02/22/25 11:49 PONV Score Low Risk 02/22/25 11:49 Height & Weight Height & Weight: Anesthesia: Height & Weight Height 5 ft 10 in 03/17/25 10:26 Weight: 84 kg 03/17/25 10:26 Body Mass Index (BMI) 26.5 03/17/25 10:26 Respiratory Assessment Respiratory Assessment - esthetician permanent makeup artist: Respiratory Tract Infection Hx - esthetician permanent makeup artist Hx Respiratory Tract Infection No 02/22/25 11:49 STOP Sleep Apnea STOP Sleep Apnea - esthetician permanent makeup artist: STOP Sleep Apnea - esthetician permanent makeup artist Hx Hypertension Yes: on meds 02/22/25 11:49 Hx Sleep Apnea No 02/22/25 11:49 CPAP BIPAP Do you snore loudly (louder No 02/22/25 11:49 than talking or can be heard Do you often feel tired/ No 02/22/25 11:49 fatigued/ sleepy during daytime? Has anyone observed you stop No 02/22/25 11:49 breathing during sleep? STOP Results Negative 02/22/25 11:49 QUESTION #5 FULL TEXT : Do you snore loudly (louder than talking or can be heard through closed doors)? 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 Specify any problems Hx of Preganancy in last 3 N/A 02/22/25 11:49 Months Nurse Filling Out Transfusion JZOLLINGE 02/22/25 11:49 & Questions: Date: 02/22/25 02/22/25 11:49 Time: 11:51 02/22/25 11:49 Patient unable to answer at this time (ie. 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 artist: /Reproductive Hx- esthetician permanent makeup artist Hx Now No 02/22/25 11:49 Gestational Age (in weeks): EDC: Hx Hx Para Hx Section SAB No 02/22/25 11:49 Active Medications Active Medications: Current Medications Generic Name Dose Route Start Last Admin Trade Name Freq PRN Reason Stop Dose Admin Cefazolin Sodium 2 gm/ Sodium 110 mls @ 200 mls/hr 03/17/25 11:25 Chloride IV 03/17/25 11:57 INTRAOP ONE Lactated Ringer's 1,000 mls @ 15 mls/hr 03/17/25 10:45 03/17/25 10:40 IV 15 mls/hr .Q48H KEMAL Administration PFSH Medical History Anxiety Depression Easy bruising Impingement of right shoulder 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 Primary osteoarthritis, right shoulder Left carpal tunnel syndrome Trigger finger, left ring finger Right shoulder pain Loss of hearing Wears glasses Wears partial dentures Cancer Arthritis Syncope Difficulty swallowing Gastric reflux Non-smoker Leg cramps History of pain when walking History of edema History of echocardiogram History of atrial fibrillation History of stress test Cardiology follow-up encounter Hypertension Hx of hiatal hernia Unintentional weight loss 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 Left coronary artery occlusion MVP (mitral valve prolapse) Hypercholesterolemia CTS (carpal tunnel syndrome) BPH (benign prostatic hyperplasia) Back pain Albarran esophagus Aortic valve sclerosis Dizziness Fatty liver Epigastric pain GERD (gastroesophageal reflux disease) Home Medications ?Medication ?Instructions ?Recorded ?Last Taken ?Type magnesium 1 tab PO DAILY 05/17/2302/24 History amlodipine 5 mg tablet 5 mg PO QDAY 11/05/24 History atorvastatin 40 mg tablet 40 mg PO QDAY 11/05/2403/16 History carvedilol 25 mg tablet 50 mg PO BID 11/05/24 History doxazosin 4 mg tablet 4 mg PO QHS 11/05/24 5 History quetiapine 50 mg tablet 50 mg PO .qd 11/05/24 History rivaroxaban 10 mg tablet (Xarelto) 20 mg PO DAILY 10/2403/14/25 History multivitamin 1 tab PO DAILY 02/22/2502/24 History pantoprazole 40 mg tablet,delayed 40 mg PO DAILY 02/2203/16/25 History release vitamin D3 20 mcg-vit K2 180 tab PO 02/22/25 03/16/25 History mcg-calcium fructoborate 216 mg tablet vitamins A,C,U-tsrw-pfofli 4,296 1 cap PO DAILY 03/16/25 History mcg-226 mg-90 mg capsule (PreserVision AREDS) Allergy/AdvReac Type Severity Reaction Status Date / Time fentanyl Allergy Rash Verified 03/17/25 10:23 Family History Father Alzheimers disease Prostate cancer Brother Colon cancer Pulmonary embolism Sister Diabetes Alzheimers disease Surgical History History of cardiac catheterization Hx of colonoscopy History of esophagogastroduodenoscopy (EGD) Hx of arthroscopy of shoulder S/P CABG x 2 Social History household members: spouse and children Smoking Status: Never smoker Electronic Cigarette Use: not used second hand exposure: No alcohol intake: never substance use type: does not use what type of physical activity do you participate in: walking Review of Systems (Anesthesia) ROS Narrative System reviewed and no additional complaints, except as documented.
--- NOTE | 2025-03-17 11:13 | PCM.HP.STD ---
HPI - General HPI Narrative OBED ANDERSON, is a 74 M who presents for left endoscopic carpal tunnel release. No changes to history and physical exam. Risks alternatives benefits discussed as well as postoperative instructions no wrist range of motion for 2 weeks but okay to use the hand and elbow. No heavy pushing pulling or gripping. I typically do not prescribe narcotics for this. He held his xarelto 4 days now. Let him know can restart that 24 hours post op. Patient understands left wrist marked no further questions or concerns. MR#: [id number] Acct: [id number] Name: OBED ANDERSON Rep #: [id number] : 1950 Provider: Dr. Eliseo Apple MD Age/Sex: 74/M Location[place] [facility] [place] Status: Signed Intake Vital Signs 12/09/2507:07 01/15/2507:54 Height 5 ft 9 in 5 ft 9 in Weight: 185 lb 190 lb BMI 27.3 28.0 Intake Visit Reasons: RIGHT SHOULDER Chief Complaint: right shoulder EMG review Accompanied by: Is patient in pain?: Yes Pain scale (1-10): 7 Allergies fentanyl Allergy (Verified 01/15/25 08:05) Rash Medications ?Medication ?Instructions ?Recorded ?Confirmed ?Type magnesium 1 tab PO DAILY 05/17/23 01/15/25 History omeprazole 40 mg capsule,delayed 40 mg PO BID #60 caps 06/02/24 01/15/25 Rx release amlodipine 5 mg tablet 5 mg PO QDAY 11/05/24 01/15/25 History atorvastatin 40 mg tablet 40 mg PO QDAY 11/05/24 01/15/25 History carvedilol 25 mg tablet 50 mg PO BID 11/05/24 01/15/25 History doxazosin 4 mg tablet 4 mg PO QHS 11/05/24 01/15/25 History quetiapine 50 mg tablet mg PO 11/05/24 01/15/25 History rivaroxaban 10 mg tablet (Xarelto) 20 mg PO DAILY 11/05/24 01/15/25 History difluprednate 0.05 % eye drops 1 drp ophthalmic (eye) 12/08/24 01/15/25 History ketorolac 0.5 % eye drops 1 drp ophthalmic (eye) 4X/DAY 12/08/24 01/15/25 History Have you fallen in the past year?: No PFSH Medical History Impingement of right shoulder 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 Primary osteoarthritis, right shoulder Left carpal tunnel syndrome Trigger finger, left ring finger Right shoulder pain Loss of hearing Wears glasses Wears partial dentures Cancer Arthritis Syncope Difficulty swallowing Gastric reflux Non-smoker Leg cramps History of pain when walking History of edema History of echocardiogram History of atrial fibrillation History of stress test Cardiology follow-up encounter Hypertension Hx of hiatal hernia Unintentional weight loss 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 Left coronary artery occlusion MVP (mitral valve prolapse) Hypercholesterolemia CTS (carpal tunnel syndrome) BPH (benign prostatic hyperplasia) Back pain Albarran esophagus Aortic valve sclerosis Dizziness Fatty liver Epigastric pain GERD (gastroesophageal reflux disease) Surgical History History of cardiac catheterization Hx of colonoscopy History of esophagogastroduodenoscopy (EGD) Hx of arthroscopy of shoulder S/P CABG x 2 Family History Father Alzheimers disease Prostate cancerBrother Colon cancer Pulmonary embolismSister Diabetes Alzheimers disease Social History household members: spouse and children Smoking Status: Never smoker Electronic Cigarette Use: not used second hand exposure: No alcohol intake: never substance use type: does not use what type of physical activity do you participate in: walking HPI RIGHT SHOULDER Details: This documentation accurately reflects the service provided and the decisions made by me, Dr. Eliseo Apple MD 01/15/25 [id number]. Part of today?s visit was documented by [ ], acting as scribe. OBED ANDERSON is a 74 year old M here today for FU NCS to assess for CTS. Hand still going numb and tingling. Ortho Exam General General: Yes no acute distress Neurologic: Yes alert and Yes oriented x3 Psychologic: Yes reasonable and appropriate Supplemental Info [facility] [address] [place] [address] MR#: [id number] Acct: [id number] Name: OBED ANDERSON Rep #: [id number] : 1950 74 From: Panchito Flannery MD Referring Dr: Eliseo Apple MD Status: REG CLI Location: PSN Date: 12/15/24 Sex: M C NCS and/or EMG Patient Report Ordering Doctor: Eliseo Apple DATE OF SERVICE: 12/15/24 Clinical Summary: 74 year old male patient presenting with symptoms of numbness in the left hand. Nerve Conduction Studies Summary: Nerve conduction studies were performed in the left upper extremity. The left median-D2 SNAP distal latency was prolonged. The left median-APB CMAP distal latency was prolonged. Needle Examination Summary: Needle examination of select muscles of the left upper extremity was normal. Impression: This is an abnormal study. There is electrodiagnostic evidence of a moderate, left median mononeuropathy at the wrist (carpal tunnel syndrome), with sensory and motor fiber demyelination There is no electrodiagnostic evidence of a left ulnar mononeuropathy or cervical radiculopathy. Multi Select Codes Neurology Neurology Interp Codes: 73045-96 Musc test done w/n test comp (interp) (1) and 30666-78 Nrv cndj test 7-8 studies (interp) Coding Level of Care Code Off vis,est,level 4 Diagnoses Left carpal tunnel syndrome G56.02 Assessment and Plan Assessment and Plan (1) Left carpal tunnel syndrome: Status: Acute Plan: 74 y M with electrodiagnostic evidence of a moderate, left median mononeuropathy at the wrist (carpal tunnel syndrome). Patient understands his different treatment options has already tried night splinting for over 6 weeks as well as cortisone injections in the past. I explained the pros and cons risks and benefits of open versus endoscopic to the patient possibly quicker recovery with endoscopic possibly increased chance of incomplete release but less pillar pain and quicker return to work and function. He understands wishes to go ahead with left endoscopic carpal tunnel release. Patient has some past medical histories like being on Xarelto we will have to get a clearance for that stop the medication 2 days at least before surgery and this can increase the risk of infection complications and other problems. Pros and cons risks and benefits were discussed with the patient including but not limited to infection, pain, stiffness, bleeding, damage to surrounding structures, neurovascular injury, recurrence or retear, failure or wear of hardware or fixation, instability, fracture, deep vein thrombosis and pulmonary embolism, anesthetic risks, , patient dissatisfaction, need for further surgery and other risks. Patient understood and wished to proceed with surgery, and signed the informed consent documentation. Carpal Tunnel Syndrome (CTS) occurs when the median nerve, which runs through the wrist, becomes compressed. Treatment options vary based on the severity of the condition: Non-Surgical Treatments: Wrist Splinting: Wearing a splint at night to keep the wrist in a neutral position. Activity Modification: Avoiding repetitive wrist movements or adjusting work habits. Physical Therapy: Exercises to improve wrist and hand function. Medications: Anti-inflammatory drugs (NSAIDs) or corticosteroid injections to reduce swelling and pain. Surgical Treatment: Carpal Tunnel Release Surgery: A procedure where the ligament pressing on the median nerve is cut to relieve pressure. This is considered when non-surgical treatments are ineffective. Options are min-open or endoscopic. 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 Primary osteoarthritis, right shoulder Left carpal tunnel syndrome Trigger finger, left ring finger Right shoulder pain Loss of hearing Wears glasses Wears partial dentures Cancer Arthritis Syncope Difficulty swallowing Gastric reflux Non-smoker Leg cramps History of pain when walking History of edema History of echocardiogram History of atrial fibrillation History of stress test Cardiology follow-up encounter Hypertension Hx of hiatal hernia Unintentional weight loss 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 Left coronary artery occlusion MVP (mitral valve prolapse) Hypercholesterolemia CTS (carpal tunnel syndrome) BPH (benign prostatic hyperplasia) Back pain Albarran esophagus Aortic valve sclerosis Dizziness Fatty liver Epigastric pain GERD (gastroesophageal reflux disease) Home Medications ?Medication ?Instructions ?Recorded ?Last Taken ?Type magnesium 1 tab PO DAILY 05/17/23 03/16/25 History amlodipine 5 mg tablet 5 mg PO QDAY 11/05/24 03/16/25 History atorvastatin 40 mg tablet 40 mg PO QDAY 11/05/24 03/16/25 History carvedilol 25 mg tablet 50 mg PO BID 11/05/24 03/17/25 History doxazosin 4 mg tablet 4 mg PO QHS 11/05/24 03/16/25 History quetiapine 50 mg tablet 50 mg PO .qd 11/05/24 03/16/25 History rivaroxaban 10 mg tablet (Xarelto) 20 mg PO DAILY 11/05/24 03/14/25 History multivitamin 1 tab PO DAILY 02/22/25 03/16/25 History pantoprazole 40 mg tablet,delayed 40 mg PO DAILY 02/22/25 03/16/25 History release vitamin D3 20 mcg-vit K2 180 tab PO 02/22/25 03/16/25 History mcg-calcium fructoborate 216 mg tablet vitamins A,C,M-atez-klsqnb 4,296 1 cap PO DAILY 02/22/25 03/16/25 History mcg-226 mg-90 mg capsule (PreserVision AREDS) Allergy/AdvReac Type Severity Reaction Status Date / Time fentanyl Allergy Rash Verified 03/17/25 10:23 Family History Father Alzheimers disease Prostate cancer Brother Colon cancer Pulmonary embolism Sister Diabetes Alzheimers disease Surgical History History of cardiac catheterization Hx of colonoscopy History of esophagogastroduodenoscopy (EGD) Hx of arthroscopy of shoulder S/P CABG x 2 Social History household members: spouse and children Smoking Status: Never smoker Electronic Cigarette Use: not used second hand exposure: No alcohol intake: never substance use type: does not use what type of physical activity do you participate in: walking Vital Signs Vital Signs Vital Signs: 03/17/25 10:26 03/17/25 10:26 03/17/25 11:10 Temperature 97.8 F 97.8 F Temperature Source Temporal Pulse Rate 57 L 57 L Respiratory Rate 18 18 Respiratory Pattern Normal Blood Pressure 135/66 H 135/66 H Blood Pressure Mean 89 Blood Pressure Source Monitor Blood Pressure Position Semi-Fowlers Blood Pressure Location Right Arm Pulse Ox 97 97 Oxygen Delivery Method Room Air Room Air Weight Weight: 185 lb 3.013 oz Body Mass Index (BMI) 26.5
--- NOTE | 2025-03-17 11:51 | PCM.OPRPT ---
Problems Associated Problem List Diagnoses (1) Left carpal tunnel syndrome: Procedures Musculoskeletal 20xxx-29xxx: Other Procedure See Report Operative Report (Standard) Operative Information Date of Procedure: 03/17/25 Pre-Operative Diagnosis: L CTS Post-Operative Diagnosis: same Surgery/Procedure Performed: L ECTR used equipment sales representative: Yes Industrial Maintenance Manager: radha Tasks completed by property assistant: Retracting Type of Anesthesia: Local MAC RN Documented Start/Stop Times: Operation Date: 03/17/25 11:25 Case Time Into Pre-Op 03/17/25 10:21 Out of Pre-Op 03/17/25 11:21 Anesthesia Start 03/17/25 11:25 Into Room 03/17/25 11:25 Procedure Start 03/17/25 11:37 Procedure End 03/17/25 11:48 Procedure Start Time: 11:37 Procedure Stop Time: 11:48 Select all DRAINS/GRAFTS/IMPLANTS that apply: None Estimated Blood Loss: 5 Specimen collected: No Description of surgery: Patient brought to the operating room theater. Placed upon on the table. 2g iv ancef before the start of the case. MAC induced by the anesthetic team. Patient placed supine on the table all bony prominences padded. SCDs on the legs. Hand table used. Tourniquet applied properly padded to the upper extremity. Upper extremity prepped and draped in the usual sterile fashion with chlorhexidine-based prep solution allowing over 3 minutes drying time prior to draping. Preoperative timeout performed to confirm the site patient and the surgery. Began by elevating the limb and inflated the tourniquet to 250 mmHg. I used the Arthex center line endoscopic carpal tunnel kit technique. 4cc 0.25% bupivicaine for local anesthesia. I made a transverse 2 cm incision in line with the? transverse wrist crease.? This was in line with the fourth digit.? I carried the dissection down through skin and subcutaneous tissue achieved meticulous hemostasis. Just ulnar to palmaris tendon.? I incised the antebrachial fascia.? I passed sequential dilators into the carpal tunnel along the radial border of the Guyon's canal aiming for the fourth digit with the hand in extension.? I used a synovial elevator to identify the transverse fibers of the transverse carpal tunnel ligament.? Passed the scope into the carpal tunnel. Once I had identified the full proximal and distal extent of the ligament I fully released the ligament under direct visualization by deploying the blade and slowly withdrawing the scope made sequential passes until I no longer felt tension as well as the entire extent of the ligament was released under direct visualization.? Sounded the tunnel with floyd tenotomy scissors, complete release, no bands. Arthroscope light was more visible through the skin. More room for the large dilator. Release the forearm fascia also. Pictures taken and saved. Wounds thoroughly irrigated.? Tourniquet let down prior to end of the case and meticulous hemostasis achieved.? Thorough irrigation.? ? Incisions closed with dermabond and 3-0 monocryl. ?Then adaptic 4x4 gauze and cloth tape. Patient woken up,? transferred off the operating room table and taken to postanesthetic care unit in stable condition. All sponge needle instrument counts were correct no complications.?Plan for the patient to be discharged home according to day surgery criteria when they are comfortable. Follow-up in the office in 2 days time. Gentle ROM hand and elbow no heavy lifting. Recommend wrist brace 2 weeks. cpt 16583 Surgical Findings: as above Complications Complications: No Admit VTE Documentation VTE Present on Admission: No VTE Mechan Device Prophylaxis: SCD's VTE Pharm Prophylaxis ordered?: No Reason prophylaxis not ordered: Treatment Not Indicated
--- NOTE | 2025-03-17 11:54 | EX.PCM.DISCH ---
Discharge Instructions Diet Discharge Diet: No restrictions Activity Discharge Activity: Return to Normal Activity Ice area for (Minutes): 10 Lifting Restrictions: no pushing, pulling, heavy lifting over gripping Keep extremity elevated above heart level: Operative Extremity Additional Activity Instructions:: keep wrist quiet, use a wrist brace 2 weeks post op Dressing / Incision Call your doctor if your incision/area has: Continuous Slow Oozing, Sudden Increased Bleeding, Increased Pain/ Swelling, Increased Redness, Foul Smelling Discharge and Swelling at the incision site Call your doctor if you observe: Fever of 101 or Higher, Coldness, Increased Pain and Numbness or Tingling Change Dressing in: 2 days Cleanse incision/area with: Do not get Incision Wet Additional Dressing/Incision Instructions:: ok to change dressing, or leave on until FU Follow Up Care Please Follow Up With: Eliseo Apple MD When: within 2 weeks. Test Results: Test results from this visit will be discussed in further detail at your follow-up appointment, if applicable. Discharge Plan Admission Attending Provider: Eliseo Apple Primary Care Provider: Frederick Granados NP Instructions Patient Instructions: Carpal Tunnel Release Surgery Print Language: Albanian Discharge Orders/Prescriptions Prescriptions: No Action Xarelto 10 mg tablet 20 mg PO DAILY Rx Instructions: for 35 days amlodipine 5 mg tablet 5 mg PO QDAY carvedilol 25 mg tablet 50 mg PO BID atorvastatin 40 mg tablet 40 mg PO QDAY doxazosin 4 mg tablet 4 mg PO QHS quetiapine 50 mg tablet 50 mg PO .qd magnesium Tablet 1 tab PO DAILY pantoprazole 40 mg tablet,delayed release (DR/EC) 40 mg PO DAILY PreserVision AREDS 4,296 mcg-226 mg-90 mg capsule 1 cap PO DAILY multivitamin Tablet 1 tab PO DAILY vit D3-vit K2-ca fructoborate 20 mcg-180 mcg- 216 mg tablet PO Referrals / Follow Up: Eliseo Apple MD [Med Staff - Active Staff] - Frederick Granados NP, ROSTER CLERK-C [Primary Care Provider] - Disposition Disposition (needs filled in before D/C Order can be placed): Home, Self Care
--- NOTE | 2025-03-17 11:58 | PCM.POST.ANE ---
Anesthesia: Postop Eval I Current Vital Signs Temperature: 96.8 F Pulse Rate: 58 Blood Pressure: 108/74 Respiratory Rate: 18 Pulse Ox: 99 Oxygen Delivery Method: Room Air Assessment Airway patent: Yes Spontaneous unlabored respirations: Yes Mental status: Awake nausea: No Vomiting: No Anesthesia Complication: No Fluid Hydration Crystalloid volume administer (ml): 500 Total IV fluid infused: 500 Progress Note Anesthesia document: Postop Eval 1 completed: Yes
--- NOTE | 2025-03-17 19:12 | POSTOPAN2_ITS ---
Anesthesia Postop Eval I Sum Postop Eval Completion status Anesthesia document: Postop Eval 1 completed: Yes Anesthesia Postop Eval I Summary Anesthesia Postop Eval I Summary: Anesthesia Postop Eval I: Assessment Summary Airway patent Yes 03/17/25 11:58 [email or web address] [email or web address] Spontaneous unlabored Yes 03/17/25 11:58 GUEST [email or web address] respirations Mental status Awake 03/17/25 11:58 GUEST [email or web address].[email or web address] nausea No 03/17/25 11:58 GUEST [email or web address].VICTORINO Vomiting No 03/17/25 11:58 GUEST [email or web address].[email or web address] Anesthesia Postop Eval I: Fluid Summary Crystalloid volume administer 500 03/17/25 11:58 GUEST [email or web address].[email or web address] (ml) Colloids volume administered ( ml) Blood Product volume administered (ml) Total IV fluid infused 500 03/17/25 11:58 GUEST [email or web address].[email or web address] Anesthesia Postop Eval I: Summary Notes Anesthesia Complication No 03/17/25 11:58 GUEST [email or web address].[email or web address] Anesthesia Complication Comment: Post-operative progress note Anesthesia: Postop Eval II Evaluation Mental status: Awake Pain Level: 2 nausea: No Vomiting: No
--- NOTE | 2025-03-17 19:12 | PCM.POSTANE2 ---
Anesthesia Postop Eval I Sum Postop Eval Completion status Anesthesia document: Postop Eval 1 completed: Yes Anesthesia Postop Eval I Summary Anesthesia Postop Eval I Summary: Anesthesia Postop Eval I: Assessment Summary Airway patent Yes 03/17/25 11:58 REMEDIAL [email or web address].[email or web address] Spontaneous unlabored Yes 03/17/25 11:58 REMEDIAL [email or web address].[email or web address] respirations Mental status Awake 03/17/25 11:58 REMEDIAL [email or web address].[email or web address] nausea No 03/17/25 11:58 REMEDIAL MASSEUR.VICTORINO Vomiting No 03/17/25 11:58 REMEDIAL MASSEUR.VICTORINO Anesthesia Postop Eval I: Fluid Summary Crystalloid volume administer 500 03/17/25 11:58 REMEDIAL MASSEUR.KALIALI (ml) Colloids volume administered ( ml) Blood Product volume administered (ml) Total IV fluid infused 500 03/17/25 11:58 REMEDIAL MASSEUR.VICTORINO Anesthesia Postop Eval I: Summary Notes Anesthesia Complication No 03/17/25 11:58 REMEDIAL MASSEUR.VICTORINO Anesthesia Complication Comment: Post-operative progress note Anesthesia: Postop Eval II Evaluation Mental status: Awake Pain Level: 2 nausea: No Vomiting: No
== END 2025-03-17 13:00 | disposition home or self-care (01) ==
LOC: SDC 09:58 → AC 10:00
PROVIDERS: PCP Nurse Practitioner Primary Care; Referring Provider Orthopaedic Surgery Sports Medicine; Visit Provider Orthopaedic Surgery Sports Medicine
PROC: (CPT 29848; principal; 2025-03-17 11:10)
DX: G56.02 Carpal tunnel syndrome, left upper limb (principal); K21.9 Gastro-esophageal reflux disease without esophagitis; I10 Essential (primary) hypertension; E78.00 Pure hypercholesterolemia, unspecified; Z79.01 Long term (current) use of anticoagulants; Z79.899 Other long term (current) drug therapy
CPT/HCPCS: 29848; J2405